=== PATIENT | female | born 1975 | race Caucasian/White ===

== ENCOUNTER 2018-05-14 19:55 | Emergency (ER) | payer SELFPAY ==
[2018-05-14] MEDS ORDERED: LIDOCAINE 1% MPF 5 ML VIAL ONE (20:56)
[2018-05-14] MEDS ORDERED: HYDROCODONE/APAP 10/325 TAB ONE (20:56)
--- NOTE | 2018-05-14 22:09 | ER ---
Nurse's Notes [facility] Name: Gabrielle Levine Age: 42 yrs Sex: Female : 1975 Arrival Date: 05/14/2018 Time: 19:57 Bed 16 Private MD: Blanka Hughes Diagnosis: Abscess of Bartholin's gland Presentation: 05/14 20:02 Presenting complaint: Patient states: Reports pain and swelling to vagina and perineum aj since when patient reports she felt something pop in her vagina. Transition of care: patient was not received from another setting of care. Onset of symptoms was May 10, 2018. Risk Assessment: Do you want to hurt yourself or someone else? Patient reports no desire to harm self or others. Initial Sepsis Screen: Does the patient meet any 2 criteria? No. Patient's initial sepsis screen is negative. Does the patient have a suspected source of infection? No. Patient's initial sepsis screen is negative. Care prior to arrival: None. 20:02 Method Of Arrival: Ambulatory aj 20:02 Acuity: PAZ 3 aj Triage Assessment: 20:04 General: Appears in no apparent distress. uncomfortable, Behavior is calm, cooperative, aj appropriate for age. Pain: Complains of pain in vaginal opening and perineum. Neuro: Level of Consciousness is awake, alert, obeys commands, Oriented to person, place, time, situation, Appropriate for age. Respiratory: Airway is patent Respiratory effort is even, unlabored, Respiratory pattern is regular, symmetrical. : Reports pain in vagina and perineum. Derm: Skin is intact, is healthy with good turgor, Skin is pink, warm \T\ dry. normal. 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 - Social history:: Smoking status: Patient/guardian denies using tobacco. - Ebola Screening: : Patient negative for fever greater than or equal to 101.5 degrees Fahrenheit, and additional compatible Ebola Virus Disease symptoms Patient denies exposure to infectious person Patient denies travel to an Ebola-affected area in the 21 days before illness onset No symptoms or risks identified at this time. Screenin:45 Abuse screen: Denies threats or abuse. Denies injuries from another. Nutritional cc3 screening: No deficits noted. Tuberculosis screening: No symptoms or risk factors identified. Fall Risk Ambulatory Aid- None/Bed Rest/Nurse Assist (0 pts). Gait- Normal/Bed Rest/Wheelchair (0 pts) Mental Status- Oriented to own ability (0 pts). Assessment: 20:45 General: see triage assessment. cc3 21:30 Reassessment: Patient appears in no apparent distress at this time. Patient and/or cc3 family updated on plan of care and expected duration. Pain level reassessed. Patient is alert, oriented x 3, equal unlabored respirations, skin warm/dry/pink. I\T\D of the bartholin's cyst done by SHAWN Beal. 22:30 Reassessment: Patient appears in no apparent distress at this time. Patient and/or cc3 family updated on plan of care and expected duration. Pain level reassessed. Patient is alert, oriented x 3, equal unlabored respirations, skin warm/dry/pink. SHAWN Beal discharged the patient home with prescription given. No IV cannula in situ. Patient left ER vitally stable and ambulatory with her niece. Vital Signs: 20:04 BP 130 / 72; Pulse 93; Resp 17; Temp 97.9; Pulse Ox 98% on R/A; Weight 104.33 kg; aj Height 5 ft. 6 in. (167.64 cm); 21:20 BP 135 / 75; Pulse 92; Resp 17 S; Pulse Ox 99% on R/A; cc3 22:10 BP 132 / 74; Pulse 91; Resp 19 S; Pulse Ox 98% on R/A; cc3 20:04 Body Mass Index 37.12 (104.33 kg, 167.64 cm) aj ED Course: 19:57 Patient arrived in ED. am2 19:58 Blanka Hughes is Private Physician. am2 20:03 Triage completed. aj 20:04 Arm band placed on left wrist. Patient placed in waiting room, Patient notified of wait aj time. 20:10 Emigdio Gonzalez NP is PHCP. pm1 20:10 Cruz Sigala MD is Attending Physician. pm1 20:44 Lilian Palomo is Primary Nurse. cc3 20:45 Patient has correct armband on for positive identification. Bed in low position. Call cc3 light in reach. Side rails up X 1. Pulse ox on. NIBP on. 21:30 Assist provider with I \T\ D: of an abscess on Bartholin's gland Set up I\T\D tray. cc 3 Performed by Emigdio Gonzalez ORACLE SPECIALIST Wound packed. 4X4s, Dressing with 4X4s, Patient tolerated. 22:07 Jackelyn Flowers MD is Referral Physician. pm1 22:30 Patient did not have IV access during this emergency room visit. cc3 Administered Medications: 20:55 Drug: [place] 10 mg-325 mg 1 tabs Route: PO; cc3 21:30 Follow up: Response: No adverse reaction; Pain is decreased cc3 21:30 Drug: Lidocaine (1 %) 5 ml {Note: given by SHAWN Beal.} Volume: 5 ml; Route: cc3 Infiltration; 22:00 Follow up: Response: No adverse reaction cc3 21:30 Drug: Marcaine (0.5 %) 10 ml {Note: given by SHAWN Beal.} Volume: 10 ml; Route: cc3 Infiltration; 22:00 Follow up: Response: No adverse reaction cc3 22:05 Drug: Clindamycin 600 mg Route: IM; Site: left gluteus; cc3 22:30 Follow up: Response: No adverse reaction cc3 Outcome: 22:08 Discharge ordered by . pm1 22:30 Discharged to home ambulatory, with family. cc3 22:30 Condition: stable 22:30 Discharge instructions given to patient, family, Instructed on discharge instructions, follow up and referral plans. medication usage, Demonstrated understanding of instructions, follow-up care, medications, Prescriptions given X 2. 22:34 Patient left the ED. cc3 Signatures: Zenia Shaikh RN RN Emigdio Lemon NP ORACLE SPECIALIST pm1 Zenia Brito am2 Lilian Palomo cc3 Corrections: (The following items were deleted from the chart) 05/15 00:58 05/14 21:30 Reassessment: Patient appears in no apparent distress at this time. Patient cc3 and/or family updated on plan of care and expected duration. Pain level reassessed. Patient is alert, oriented x 3, equal unlabored respirations, skin warm/dry/pink. cc3 05/15 01:08 05/14 22:30 No provider procedures requiring assistance completed. cc3 cc3
--- NOTE | 2018-05-14 22:09 | EDPHYS ---
Physician Documentation [facility] Name: Gabrielle Levine Age: 42 yrs Sex: Female : 1975 Arrival Date: 05/14/2018 Time: 19:57 Bed 16 Private MD: Blanka Hughes ED Physician Cruz Sigala HPI: 05/14 20:53 This 42 yrs old Female presents to ER via Ambulatory with complaints of pm1 Vaginal Pain - swelling. 20:53 The patient presents with Bump on right side of vagina. Onset: The symptoms/episode pm1 began/occurred 2 day(s) ago. Modifying factors: The symptoms are alleviated by nothing, the symptoms are aggravated by walking, sitting. Associated signs and symptoms: Pertinent negatives: dysuria, fever, vaginal bleeding, vaginal discharge. Severity of symptoms: in the emergency department the symptoms are actually worse. The patient has not experienced similar symptoms in the past. The patient has not recently seen a physician, and does not have an established primary care provider. 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 - Social history:: Smoking status: Patient/guardian denies using tobacco. - Ebola Screening: : Patient negative for fever greater than or equal to 101.5 degrees Fahrenheit, and additional compatible Ebola Virus Disease symptoms Patient denies exposure to infectious person Patient denies travel to an Ebola-affected area in the 21 days before illness onset No symptoms or risks identified at this time. ROS: 20:53 Positive for bump to right side of vagina, Negative for urinary symptoms, flank pm1 pain, burning with urination. 20:53 Constitutional: Negative for fever, chills, and weight loss, Eyes: Negative for injury, pain, redness, and discharge, ENT: Negative for injury, pain, and discharge, Neck: Negative for injury, pain, and swelling, Cardiovascular: Negative for chest pain, palpitations, and edema, Respiratory: Negative for shortness of breath, cough, wheezing, and pleuritic chest pain, Abdomen/GI: Negative for abdominal pain, nausea, vomiting, diarrhea, and constipation, Back: Negative for injury and pain, MS/Extremity: Negative for injury and deformity, Skin: Negative for injury, rash, and discoloration, Neuro: Negative for headache, weakness, numbness, tingling, and seizure. Exam: 20:53 Constitutional: This is a well developed, well nourished patient who is awake, alert, pm1 and in no acute distress. Head/Face: Normocephalic, atraumatic. Eyes: Pupils equal round and reactive to light, extra-ocular motions intact. Lids and lashes normal. Conjunctiva and sclera are non-icteric and not injected. Cornea within normal limits. Periorbital areas with no swelling, redness, or edema. ENT: Nares patent. No nasal discharge, no septal abnormalities noted. Tympanic membranes are normal and external auditory canals are clear. Oropharynx with no redness, swelling, or masses, exudates, or evidence of obstruction, uvula midline. Mucous membranes moist. Neck: Trachea midline, no thyromegaly or masses palpated, and no cervical lymphadenopathy. Supple, full range of motion without nuchal rigidity, or vertebral point tenderness. No Meningismus. Chest/axilla: Normal chest wall appearance and motion. Nontender with no deformity. No lesions are appreciated. Cardiovascular: Regular rate and rhythm with a normal S1 and S2. No gallops, murmurs, or rubs. Normal PMI, no JVD. No pulse deficits. Respiratory: Lungs have equal breath sounds bilaterally, clear to auscultation and percussion. No rales, rhonchi or wheezes noted. No increased work of breathing, no retractions or nasal flaring. Abdomen/GI: Soft, non-tender, with normal bowel sounds. No distension or tympany. No guarding or rebound. No evidence of tenderness throughout. Back: No spinal tenderness. No costovertebral tenderness. Full range of motion. 20:53 Skin: Warm, dry with normal turgor. Normal color with no rashes, no lesions, and no evidence of cellulitis. MS/ Extremity: Pulses equal, no cyanosis. Neurovascular intact. Full, normal range of motion. 20:53 : Pelvic Exam: External exam: Bartholin's cyst present, no evidence of foreign body, no lesions, no ulcerations, no warts seen, Eden ESCOBAR student. 20:53 Neuro: Orientation: is normal, Motor: is normal, moves all fours, strength is normal, strength is 5/5 in all extremities, Gait: is steady, at a normal pace, without difficulty. Vital Signs: 20:04 BP 130 / 72; Pulse 93; Resp 17; Temp 97.9; Pulse Ox 98% on R/A; Weight 104.33 kg; aj Height 5 ft. 6 in. (167.64 cm); 21:20 BP 135 / 75; Pulse 92; Resp 17 S; Pulse Ox 99% on R/A; cc3 22:10 BP 132 / 74; Pulse 91; Resp 19 S; Pulse Ox 98% on R/A; cc3 20:04 Body Mass Index 37.12 (104.33 kg, 167.64 cm) Procedures: 22:05 I \T\ D: Incision and drainage was performed for an abscess of the right Bartholin's pm1 gland. Prepped with Betadine, Anesthetized with Lidocaine 1% with Marcaine 0.5%. Incised with #11 blade. Drained moderate amount serosanguinous fluid. Packed with wurd's catheter - 3 cc balloon . the patient tolerated the procedure well. MDM: 20:11 Patient medically screened. pm1 22:07 Data reviewed: vital signs. Data interpreted: Pulse oximetry: on room air is 98 %. pm1 Interpretation: normal. Counseling: I had a detailed discussion with the patient and/or guardian regarding: the historical points, exam findings, and any diagnostic results supporting the discharge/admit diagnosis, the need for outpatient follow up, for definitive care, an OB/Gyne specialist, to return to the emergency department if symptoms worsen or persist or if there are any questions or concerns that arise at home. 05/14 20:33 Order name: Incision \T\ Drainage Setup; Complete Time: 21:58 pm1 Administered Medications: 20:55 Drug: [place] 10 mg-325 mg 1 tabs Route: PO; cc3 21:30 Follow up: Response: No adverse reaction; Pain is decreased cc3 21:30 Drug: Lidocaine (1 %) 5 ml {Note: given by SHAWN Beal.} Volume: 5 ml; Route: cc3 Infiltration; 22:00 Follow up: Response: No adverse reaction cc3 21:30 Drug: Marcaine (0.5 %) 10 ml {Note: given by SHAWN Beal.} Volume: 10 ml; Route: cc3 Infiltration; 22:00 Follow up: Response: No adverse reaction cc3 22:05 Drug: Clindamycin 600 mg Route: IM; Site: left gluteus; cc3 22:30 Follow up: Response: No adverse reaction cc3 Disposition: 05/15 00:59 Co-signature as Attending Physician, Cruz Sigala MD. rn Disposition: 05/14/18 22:08 Discharged to Home. Impression: Abscess of Bartholin's gland. - Condition is Stable. - Discharge Instructions: Bartholin Cyst or Abscess, Incision and Drainage. - Prescriptions for Clindamycin HCl 300 mg Oral Capsule - take 1 capsule by ORAL route every 6 hours for 10 days; 40 capsule. Tylenol- Codeine #3 300-30 mg Oral Tablet - take 2 tablets by ORAL route every 6 hours As needed; 20 tablet. - Work release form, Medication Reconciliation Form, Thank You Letter, Antibiotic Education, Prescription Opioid Use form. - Follow up: Emergency Department; When: As needed; Reason: Worsening of condition. Follow up: Jackelyn Flowers MD; When: 2 - 3 days; Reason: Recheck today's complaints, Continuance of care, Re-evaluation by your physician. - Problem is new. - Symptoms have improved. Signatures: Zenia Shaikh RN RN aj Nieto, Roman, MD MD rn Marinas, Patrick, SHAWN SKIP OPERATOR pm1 Lilian Palomo cc3 Corrections: (The following items were deleted from the chart) 05/14 22:34 22:08 05/14/2018 22:08 Discharged to Home. Impression: Abscess of Bartholin's gland. cc3 Condition is Stable. Forms are Medication Reconciliation Form, Thank You Letter, Antibiotic Education, Prescription Opioid Use. Follow up: Emergency Department; When: As needed; Reason: Worsening of condition. Follow up: Jackelyn Flowers; When: 2 - 3 days; Reason: Recheck today's complaints, Continuance of care, Re-evaluation by your physician. Problem is new. Symptoms have improved. pm1
[2018-05-14] MEDS ORDERED: CLINDAMYCIN IV 150 MG/ML (4 mL) VIAL ONE (22:14)
== END 2018-05-14 22:34 | disposition home or self-care (01) ==
LOC: ER 19:55
PROC: 0U9L0ZZ Drainage of Vestibular Gland, Open Approach (ICD-10-PCS; principal; 2018-05-14)
DX: N75.1 Abscess of Bartholin's gland (principal); F41.9 Anxiety disorder, unspecified; F43.10 Post-traumatic stress disorder, unspecified; Z79.899 Other long term (current) drug therapy
CPT/HCPCS: 96372; 99284; S0077

== ENCOUNTER 2019-06-21 00:53 | Emergency (ER) | payer BC ==
[2019-06-21] MEDS ORDERED: KETOROLAC 30 MG/ML INJ ONE (01:39)
[2019-06-21] MEDS ORDERED: ACETAMINOPHEN 500 MG TAB ONE (01:39)
[2019-06-21] MEDS ORDERED: NA CHLORIDE 0.9% 3,000 ML ONE (01:39)
[2019-06-21 02:59] LABS: Absolute Lymphocytes (CBC) 0.6 K/uL (0.7-4.9); Basophils % 0.4 % (0-1.3); Hematocrit 37.2 % (36.0-45.0); Lymphocytes % 13.2 % (15.3-44.8); MPV 7.8 fL (7.6-11.3); RBC Red Blood Cell Count 4.19 M/uL (3.86-4.86)
[2019-06-21 03:00] LABS: Protime INR 1.27
[2019-06-21] MEDS ORDERED: PIPER/TAZO/NS 3.375gm 3.375 GM/100 ML BAG ONE (03:04)
[2019-06-21 03:18] LABS: ALT/SGPT 39 U/L (12-78); AST/SGOT 33 U/L (15-37); Albumin 3.2 g/dL (3.4-5.0); Alkaline Phosphatase 44 U/L (45-117); BUN Blood Urea Nitrogen 8 mg/dL (7-18); Bicarbonate 21 mmol/L (21-32); Bilirubin Direct < 0.1 mg/dL (0-0.2); Bilirubin Total 0.3 mg/dL (0.2-1.0); CKMB Creatine Kinase MB < 1.0 ng/mL (0.3-3.6); Creatine Phosphokinase 64 U/L (26-192); Glucose Level 105 mg/dL (74-106); Lipase 154 U/L (73-393); Potassium 3.9 mmol/L (3.5-5.1); Protein, Total 7.3 g/dL (6.4-8.2); Sodium Level 133 mmol/L (136-145); Troponin (Emerg Dept Use Only) < 0.02 ng/mL (0.0-0.045)
--- NOTE | 2019-06-21 04:35 | ER ---
Nurse's Notes [facility] Name: Gabrielle Levine Age: 44 yrs Sex: Female : 1975 Arrival Date: 06/21/2019 Time: 00:55 Bed 2 Private MD: Diagnosis: Chest pain, unspecified Presentation: 06/21 01:07 Presenting complaint: Patient states: Tuesday afternoon started Duexis c/o central ak1 chest pain and middle upper back pain. Transition of care: patient was not received from another setting of care. Onset of symptoms is unknown. Risk Assessment: Do you want to hurt yourself or someone else? Patient reports no desire to harm self or others. Initial Sepsis Screen: Does the patient meet any 2 criteria? No. Patient's initial sepsis screen is negative. Does the patient have a suspected source of infection? No. Patient's initial sepsis screen is negative. Care prior to arrival: None. 01:07 Method Of Arrival: Ambulatory ak1 01:07 Acuity: PAZ 3 ak1 Triage Assessment: 01:11 General: Appears in no apparent distress. Behavior is anxious. 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 - Social history:: Smoking status: Patient/guardian denies using tobacco. - Ebola Screening: : No symptoms or risks identified at this time. Screenin:20 Abuse screen: Denies threats or abuse. Denies injuries from another. Nutritional ao screening: No deficits noted. Tuberculosis screening: No symptoms or risk factors identified. Fall Risk None identified. Assessment: 01:13 Pain: Pain began. ak1 01:17 General: Appears in no apparent distress. comfortable, obese, well groomed, well ao developed, well nourished, Behavior is calm, cooperative, appropriate for age. Pain: Complains of pain in chest Pain radiates to back. Neuro: Level of Consciousness is awake, alert, obeys commands, Oriented to person, place, time, situation, Appropriate for age Moves all extremities. Full function Speech is normal, Facial symmetry appears normal. Cardiovascular: Reports chest pain, Capillary refill < 3 seconds Patient's skin is warm and dry. Respiratory: Airway is patent Respiratory effort is even, unlabored, Respiratory pattern is regular, symmetrical. GI: Abdomen is round obese. : No signs and/or symptoms were reported regarding the genitourinary system. EENT: No signs and/or symptoms were reported regarding the EENT system. Derm: Skin is intact, Skin is pink, warm \T\ dry. normal, Skin temperature is warm. Musculoskeletal: Capillary refill Range of motion: intact in all extremities. 02:30 Reassessment: Lab at bedside, unable to collect blood. lp1 04:30 Reassessment: Patient appears in no apparent distress at this time. Patient and/or ao family updated on plan of care and expected duration. Pain level reassessed. Waiting on Dispos orders. 05:15 Reassessment: Patient ambulated to bathroom at this time. lp1 05:43 Reassessment: DC instructions given to patient. Patient agree with POC and to follow up ao with PCP. No questions at this time. Vital Signs: 01:11 BP 123 / 73; Pulse 111; Resp 18; Temp 101.0(O); Pulse Ox 97% on R/A; Weight 113.4 kg ak1 (R); Height 5 ft. 6 in. (167.64 cm) (R); Pain 4/10; 02:45 BP 110 / 71; Pulse 104; Resp 18; Pulse Ox 98% on R/A; lp1 03:39 BP 129 / 74; Pulse 95; Resp 22; Temp 99.2(O); Pulse Ox 97% on R/A; lp1 04:30 BP 107 / 64; Pulse 91; Resp 16; Pulse Ox 100% ; ao 01:11 Body Mass Index 40.35 (113.40 kg, 167.64 cm) ak1 ED Course: 00:55 Patient arrived in ED. ag3 01:10 Triage completed. ak1 01:11 Arm band placed on Patient placed in an exam room, on a stretcher, on pulse oximetry, ak1 Patient notified of wait time. EKG completed in triage. Results shown to MD. 01:17 Benny Davis, RN is Primary Nurse. ao 01:20 Patient has correct armband on for positive identification. Pulse ox on. NIBP on. ao 01:20 Inserted saline lock: 20 gauge in left forearm, using aseptic technique. Blood ao collected. Patient maintains SpO2 saturation greater than 95% on room air. 01:33 Eber Mariee PA is PHCP. jr8 01:33 Tim Wylie MD is Attending Physician. jr8 01:46 Chest Single View XRAY In Process Unspecified. EDMS 02:15 Missed attempt(s): 22 gauge in left antecubital area. lp1 02:40 Inserted saline lock: 18 gauge in left EJ, using aseptic technique. Blood collected. By lp1 YUE Aguirre. 02:40 Initial lab(s) drawn, by ED staff, sent to lab. First set of blood cultures drawn by ED lp1 staff. 02:40 Flu and/or RSV swab sent to lab. lp1 05:44 No provider procedures requiring assistance completed. IV discontinued, intact, ao bleeding controlled, No redness/swelling at site. Pressure dressing applied. Administered Medications: 02:30 Drug: Acetaminophen 1000 mg Route: PO; ao 05:45 Follow up: Response: No adverse reaction; Temperature is decreased ao 02:52 Drug: TORadol 30 mg Route: IVP; Site: left jugular; ao 03:47 Follow up: Response: No adverse reaction ao 02:54 Drug: NS 0.9% (30 ml/kg) 30 ml/kg Route: IV; Rate: bolus; Site: left jugular; ao 05:46 Follow up: IV Status: Completed infusion; IV Intake: 3000ml ao 03:19 Drug: Zosyn 3.375 grams Route: IVPB; Infused Over: 60 mins; Site: left jugular; ao 05:45 Follow up: IV Status: Completed infusion; IV Intake: 100ml ao Intake: 05:45 IV: 100ml; Total: 100ml. ao 05:46 IV: 3000ml; Total: 3100ml. ao Outcome: 04:35 Discharge ordered by . tw4 05:44 Discharged to home ambulatory. ao 05:44 Condition: stable 05:44 Discharge instructions given to patient, Instructed on discharge instructions, follow up and referral plans. Demonstrated understanding of instructions, follow-up care, medications. 05:46 Patient left the ED. ao Signatures: Dispatcher [employer] EDMS Martina Dumas RN RN lp1 Eber Mariee PA PA jr8 Mirna Hood RN RN ak1 Benny Davis RN RN Tim Stovall MD MD tw4 Britney Benites ag3
--- NOTE | 2019-06-21 04:36 | EDPHYS ---
Physician Documentation [facility] Name: Gabrielle Levine Age: 44 yrs Sex: Female : 1975 Arrival Date: 06/21/2019 Time: 00:55 Bed 2 Private MD: ED Physician Tim Wylie HPI: 06/21 02:11 This 44 yrs old Female presents to ER via Ambulatory with complaints of Chest jr8 Pain. 02:11 The patient or guardian reports chest pain that is located primarily in the substernal jr8 area. Onset: acutely, today. The pain radiates to back. Associated signs and symptoms: Pertinent positives: fever. The chest pain is described as sharp. Duration: The patient or guardian reports a single episode, that is still ongoing. Modifying factors: The symptoms are alleviated by nothing. the symptoms are aggravated by nothing. Severity of pain: At its worst the pain was moderate in the emergency department the pain is unchanged. The patient has not experienced similar symptoms in the past. The patient has not recently seen a physician. ATTORNEY: 01:11 LMP N/A - Hysterectomy ak1 Historical: - Allergies: 01:11 Azithromycin; ak1 01:11 Cephalexin Monohydrate; ak1 01:11 Methocarbamol; ak1 01:11 phenytoin sodium; ak1 01:11 phenytoin sodium extended; ak1 01:11 Erythromycin; ak1 - Home Meds: 01:11 Lexapro 15mg Oral once daily for Anxiety with Depression [Active]; ak1 - PMHx: 01:11 Anxiety; Irritable bowel syndrome; PTSD; Migraines; ak1 - PSHx: 01:11 Hysterectomy; Cholecystectomy; Tubal ligation; ak1 - Immunization history:: Adult Immunizations unknown, Flu vaccine is not up to date. - Social history:: Smoking status: Patient/guardian denies using tobacco. - Ebola Screening: : No symptoms or risks identified at this time. ROS: 02:11 Eyes: Negative for injury, pain, redness, and discharge, ENT: Negative for injury, jr8 pain, and discharge, Neck: Negative for injury, pain, and swelling, Respiratory: Negative for shortness of breath, cough, wheezing, and pleuritic chest pain, Abdomen/GI: Negative for abdominal pain, nausea, vomiting, diarrhea, and constipation, Back: Negative for injury and pain, MS/Extremity: Negative for injury and deformity, Skin: Negative for injury, rash, and discoloration, Neuro: Negative for headache, weakness, numbness, tingling, and seizure. 02:11 Constitutional: Positive for fever. 02:11 Cardiovascular: Positive for chest pain, Negative for edema, orthopnea, palpitations, paroxysmal nocturnal dyspnea. Exam: 02:11 Eyes: Pupils equal round and reactive to light, extra-ocular motions intact. Lids and jr8 lashes normal. Conjunctiva and sclera are non-icteric and not injected. Cornea within normal limits. Periorbital areas with no swelling, redness, or edema. ENT: Nares patent. No nasal discharge, no septal abnormalities noted. Tympanic membranes are normal and external auditory canals are clear. Oropharynx with no redness, swelling, or masses, exudates, or evidence of obstruction, uvula midline. Mucous membranes moist. Neck: Trachea midline, no thyromegaly or masses palpated, and no cervical lymphadenopathy. Supple, full range of motion without nuchal rigidity, or vertebral point tenderness. No Meningismus. Respiratory: Lungs have equal breath sounds bilaterally, clear to auscultation and percussion. No rales, rhonchi or wheezes noted. No increased work of breathing, no retractions or nasal flaring. Abdomen/GI: Soft, non-tender, with normal bowel sounds. No distension or tympany. No guarding or rebound. No evidence of tenderness throughout. Back: No spinal tenderness. No costovertebral tenderness. Full range of motion. Skin: Warm, dry with normal turgor. Normal color with no rashes, no lesions, and no evidence of cellulitis. MS/ Extremity: Pulses equal, no cyanosis. Neurovascular intact. Full, normal range of motion. Neuro: Awake and alert, GCS 15, oriented to person, place, time, and situation. Cranial nerves II-XII grossly intact. Motor strength 5/5 in all extremities. Sensory grossly intact. Cerebellar exam normal. Normal gait. 02:11 Cardiovascular: Rate: tachycardic, Rhythm: regular, Pulses: Pulses are 2+ in right radial artery and left radial artery. Heart sounds: normal, normal S1and S2, no S3 or S4, no murmur, no rub, no gallop, Edema: is not appreciated, JVD: is not appreciated. Vital Signs: :11 BP 123 / 73; Pulse 111; Resp 18; Temp 101.0(O); Pulse Ox 97% on R/A; Weight 113.4 kg ak1 (R); Height 5 ft. 6 in. (167.64 cm) (R); Pain 4/10; 02:45 BP 110 / 71; Pulse 104; Resp 18; Pulse Ox 98% on R/A; lp1 03:39 BP 129 / 74; Pulse 95; Resp 22; Temp 99.2(O); Pulse Ox 97% on R/A; lp1 04:30 BP 107 / 64; Pulse 91; Resp 16; Pulse Ox 100% ; ao 01:11 Body Mass Index 40.35 (113.40 kg, 167.64 cm) ak1 MDM: 01:33 Patient medically screened. 06/21 01:32 Order name: Basic Metabolic Panel [facility] 06/21 01:32 Order name: Blood Culture Adult (2) [facility] 06/21 01:32 Order name: CBC with Diff; Complete Time: 04:02 [facility] 06/21 04:02 Interpretation: Normal except: MAGDA% 75.7; LYM% 13.2; LYMA 0.6. [facility] 06/21 01:32 Order name: Ckmb; Complete Time: 04:02 [facility] 06/21 04:05 Interpretation: Within normal limits: CKMB < 1.0. [facility] 06/21 01:32 Order name: CPK; Complete Time: 04:02 [facility] 06/21 04:05 Interpretation: CPK 64. [facility] 06/21 01:32 Order name: Lactate; Complete Time: 04:02 [facility] 06/21 04:05 Interpretation: Within normal limits: LAC 0.9. 06/21 01:32 Order name: LFT's; Complete Time: 04:02 [facility] 06/21 04:02 Interpretation: Normal except: ALK 44; GLOB 4.1; A/G 0.8; ALB 3.2. [facility] 06/21 01:32 Order name: Lipase; Complete Time: 04:02 [facility] 06/21 04:05 Interpretation: Within normal limits: LIP 154. [facility] 06/21 01:32 Order name: Procalcitonin; Complete Time: 04:02 [facility] 06/21 04:06 Interpretation: Within normal limits: Procalcitonin < 0.05. 06/21 01:32 Order name: Protime (+inr); Complete Time: 04:02 [facility] 06/21 04:04 Interpretation: Normal except: PT 14.8. 06/21 01:32 Order name: Ptt, Activated; Complete Time: 04:02 06/21 04:06 Interpretation: Within normal limits: PTT 29.3. [facility] 06/21 01:32 Order name: Troponin (emerg Dept Use Only); Complete Time: 04:02 06/21 04:06 Interpretation: Within normal limits: TROPED < 0.02. 06/21 01:32 Order name: ESR; Complete Time: 04:02 06/21 04:04 Interpretation: Normal except: SED 24. 06/21 01:32 Order name: Chest Single View XRAY 06/21 01:32 Order name: Cardiac monitoring; Complete Time: 01:34 [facility] 06/21 01:32 Order name: EKG - Nurse/Tech; Complete Time: 01:33 06/21 01:32 Order name: IV Saline Lock - Large Bore; Complete Time: 01:33 06/21 01:32 Order name: Labs collected and sent; Complete Time: 02:57 06/21 01:32 Order name: O2 Per Protocol; Complete Time: 01:34 06/21 01:32 Order name: O2 Sat Monitoring; Complete Time: 02:54 06/21 01:32 Order name: Urine Dipstick-Ancillary (obtain specimen); Complete Time: 02:54 06/21 01:34 Order name: Basic Metabolic Panel; Complete Time: 04:02 [facility] 06/21 04:04 Interpretation: Normal except: NA 133; GFR 82. 06/21 02:10 Order name: Flu; Complete Time: 04:02 Administered Medications: 02:30 Drug: Acetaminophen 1000 mg Route: PO; ao 05:45 Follow up: Response: No adverse reaction; Temperature is decreased ao 02:52 Drug: TORadol 30 mg Route: IVP; Site: left jugular; ao 03:47 Follow up: Response: No adverse reaction ao 02:54 Drug: NS 0.9% (30 ml/kg) 30 ml/kg Route: IV; Rate: bolus; Site: left jugular; ao 05:46 Follow up: IV Status: Completed infusion; IV Intake: 3000ml ao 03:19 Drug: Zosyn 3.375 grams Route: IVPB; Infused Over: 60 mins; Site: left jugular; ao 05:45 Follow up: IV Status: Completed infusion; IV Intake: 100ml ao Disposition: 06:16 Co-signature as Attending Physician, Tim Wylie MD I agree with the assessment and tw4 plan of care. Disposition: 06/21/19 04:35 Discharged to Home. Impression: Chest pain, unspecified. - Condition is Stable. - Discharge Instructions: Nonspecific Chest Pain, Pain Without a Known Cause, Nonspecific Chest Pain, [id number]. - Work release form, Medication Reconciliation Form, Thank You Letter, Antibiotic Education, Prescription Opioid Use form. - Follow up: Private Physician; When: Upon discharge from the Emergency Department; Reason: Recheck today's complaints, Continuance of care. - Problem is new. - Symptoms have improved. Signatures: Dispatcher [employer] EDMS Eber Mariee PA PA 8 Mirna Hood RN RN ak1 Benny Davis RN Tim Adorno MD MD tw4 Corrections: (The following items were deleted from the chart) 03:20 01:32 Accucheck ordered. 8 04:08 04:06 TROPED < 0.02. tw4 tw4 05:46 01:32 Urine Test ordered. [facility] ao 05:46 04:35 06/21/2019 04:35 Discharged to Home. Impression: Chest pain, unspecified. ao Condition is Stable. Forms are Medication Reconciliation Form, Thank You Letter, Antibiotic Education, Prescription Opioid Use. Follow up: Private Physician; When: Upon discharge from the Emergency Department; Reason: Recheck today's complaints, Continuance of care. Problem is new. Symptoms have improved. tw4
[2019-06-21 06:38] VITALS: TEMP 99.2
[2019-06-21 06:39] VITALS: BP 107/64; O2SAT 100
--- NOTE | 2019-06-21 08:17 | RAD REPORT ---
EXAM DESCRIPTION: [place] Single View06/21/2019 1:47 am CLINICAL HISTORY: Chest pain COMPARISON: none FINDINGS: The lungs appear clear of acute infiltrate. The heart is normal size IMPRESSION: No acute abnormalities displayed
--- NOTE | 2019-06-21 12:43 | EKG ---
Test Date: 2019-06-21 Test Time: 01:05:17 Instructional Technologist: DEEJAY MEASUREMENT RESULTS: Intervals: Rate: 108 SC: 172 QRSD: 86 QT: 320 QTc: 428 [place]: P: 52 SC: 172 QRS: 74 T: 41 INTERPRETIVE STATEMENTS: Sinus tachycardia Otherwise normal ECG No previous ECG available for comparison Electronically Signed On 06-21-19 12:41:31 [place] by Fareed Sanchez
== END 2019-06-21 05:46 | disposition home or self-care (01) ==
LOC: ER 00:53
DX: R07.9 Chest pain, unspecified (principal); R50.9 Fever, unspecified; F34.1 Dysthymic disorder; Z88.3 Allergy status to other anti-infective agents; Z88.8 Allergy status to other drugs, medicaments and biological substances
CPT/HCPCS: 96365; 93005; 87040; 85025; 80048; 36415; 82550; 85610; 80076; 83605; 85730; 85652; 84484; 82553; 83690; 84145; 87804 ×2; 71045; 96375; 99284; 96366; J2543; J7030

== ENCOUNTER 2021-06-17 17:49 | Emergency (ER) | payer BC ==
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
[2021-06-17 20:13] LABS: ALT/SGPT 24 U/L (12-78); Albumin 3.4 g/dL (3.4-5.0); Alkaline Phosphatase 67 U/L (45-117); BUN Blood Urea Nitrogen 11 mg/dL (7-18); Bicarbonate 18 mmol/L (21-32); Bilirubin Direct < 0.1 mg/dL (0-0.2); Bilirubin Total 0.3 mg/dL (0.2-1.0); Glucose Level 124 mg/dL (74-106); Protein, Total 8.2 g/dL (6.4-8.2); Sodium Level 138 mmol/L (136-145)
[2021-06-17 20:14] LABS: AST/SGOT 14 U/L (15-37); Potassium 3.9 mmol/L (3.5-5.1)
[2021-06-17 20:46] LABS: Absolute Lymphocytes (CBC) 2.2 K/uL (0.7-4.9); Basophils % 0.3 % (0-1.3); Hematocrit 40.4 % (36.0-45.0); Lymphocytes % 9.4 % (15.3-44.8); MPV 6.8 fL (7.6-11.3); RBC Red Blood Cell Count 4.44 M/uL (3.86-4.86)
--- NOTE | 2021-06-17 21:23 | ER ---
Nurse's Notes [facility] Name: Gabrielle Levine Age: 46 yrs Sex: Female : 1975 Arrival Date: 06/17/2021 Time: 17:50 Bed 4 Private MD: Diagnosis: Generalized pustular psoriasis Presentation: 06/17 18:05 Chief complaint: Patient states: Rash with itching to body for 3 days. Saw her doctor ll1 yesterday, got shot and started steroids today. Still getting worse. Coronavirus screen: Vaccine status: Patient reports receiving the 2nd dose of the covid vaccine. Client denies travel out of the [place] in the last 14 days. At this time, the client does not indicate any symptoms associated with coronavirus-19. Ebola Screen: Patient denies travel to an Ebola-affected area in the 21 days before illness onset. Initial Sepsis Screen: Does the patient meet any 2 criteria? HR > 90 bpm. No. Patient's initial sepsis screen is negative. Does the patient have a suspected source of infection? Yes: Skin breakdown/wound. Risk Assessment: Do you want to hurt yourself or someone else? Patient reports no desire to harm self or others. Onset of symptoms was June 15, 2021. 18:05 Method Of Arrival: Ambulatory ll1 18:05 Acuity: PAZ 3 ll1 Triage Assessment: 19:07 General: Appears uncomfortable. corey 19:08 General: Behavior is cooperative. corey M48 M60 [employer]: 21:59 LMP 2020 5 Historical: - Allergies: 18:03 Azithromycin; ll1 18:03 Cephalexin Monohydrate; ll1 18:03 Erythromycin; ll1 18:03 Methocarbamol; ll1 18:03 phenytoin sodium; ll1 18:03 phenytoin sodium extended; ll1 18:03 metformin; ll1 - PMHx: 18:03 Anxiety; Irritable bowel syndrome; Migraines; PTSD; HIV positive; ll1 - PSHx: 18:03 hysterectomy; ll1 - Immunization history:: Client reports receiving the 2nd dose of the Covid vaccine. - Social history:: Smoking status: Patient denies any tobacco usage or history of. Screenin:06 Abuse screen:. Nutritional screening: No deficits noted. Tuberculosis screening: No corey symptoms or risk factors identified. Fall Risk None identified. Assessment: 19:01 Pain: Complains of pain in scalp, back, buttocks, chest, abdomen, pelvis, right arm, corey left arm and neck. Derm: Reports burning, pain that is 10 out of 10 on a pain scale. generalized rash. Vital Signs: 18:05 BP 142 / 89; Pulse 104; Resp 18; Temp 98.3; Pulse Ox 99% on R/A; Weight 117.93 kg; ll1 Height 5 ft. 6 in. (167.64 cm); Pain 10/10; 20:41 BP 138 / 97; Pulse 93; Resp 18 S; Pulse Ox 97% on R/A; as6 22:00 BP 128 / 86; Pulse 95; Resp 18; Pulse Ox 100% ; sm5 18:05 Body Mass Index 41.96 (117.93 kg, 167.64 cm) ll1 ED Course: 17:50 Patient arrived in ED. am2 18:03 Arm band placed on. 1 18:08 Triage completed. [facility] 18:28 Annabelle Casanova is Primary Nurse. 18:30 Eber Mariee PA is PHCP. 8 18:30 Cruz Sigala MD is Attending Physician. 8 19:06 Patient has correct armband on for positive identification. Bed in low position. corey 19:06 No provider procedures requiring assistance completed. 19:49 Basic Metabolic Panel Sent. 19:49 LFT's Sent. 19:49 CBC with Diff Sent. 19:51 Inserted saline lock: 22 gauge in right antecubital area, using aseptic technique. Blood collected. 22:00 IV discontinued, intact, bleeding controlled, No redness/swelling at site. Pressure sm5 dressing applied. Administered Medications: No medications were administered Outcome: 21:22 Discharge ordered by . Jeffrey 21:59 Discharged to home ambulatory. 5 21:59 Condition: good 21:59 Discharge instructions given to patient, Instructed on discharge instructions, follow up and referral plans. medication usage, Demonstrated understanding of instructions, follow-up care, medications, Prescriptions given X 1. 22:04 Patient left the ED. 5 Signatures: Eber Mariee PA PA 8 Zenia Brito am2 Lorena Ortiz RN RN 1 Fabian Coats RN RN as6 Catherine Gilbert RN RN 5 Au-StagerAnnabelle Madeline, RN RN mk Corrections: (The following items were deleted from the chart) 20:01 19:08 Verified leora levine
--- NOTE | 2021-06-17 21:23 | EDPHYS ---
Physician Documentation [facility] Name: Gabrielle Levine Age: 46 yrs Sex: Female : 1975 Arrival Date: 06/17/2021 Time: 17:50 Bed 4 Private MD: ED Physician Cruz Sigala HPI: 06/17 19:19 This 46 yrs old Female presents to ER via Ambulatory with complaints of Rash, Pain All jr8 Over. 19:19 This is a 46-year-old female patient that presented to the emergency room with jr8 continued complaints of rash that is burning in nature. Patient stated that she has been seen by 2 other physicians, one being a charger operator helper and has been put on steroids but is still not getting better. Still unsure of exact diagnosis after seeing both of the physicians. Patient stated that she had had a migraine about 5 days prior to that. Has a history of migraines and was recently started on Imitrex and Topamax about 2 weeks ago. Denies any other symptoms at this time.. 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 - Social history:: Smoking status: Patient denies any tobacco usage or history of. ROS: 19:19 Eyes: Negative for injury, pain, redness, and discharge, ENT: Negative for injury, jr8 pain, and discharge, Neck: Negative for injury, pain, and swelling, Cardiovascular: Negative for chest pain, palpitations, and edema, Respiratory: Negative for shortness of breath, cough, wheezing, and pleuritic chest pain, Abdomen/GI: Negative for abdominal pain, nausea, vomiting, diarrhea, and constipation, Back: Negative for injury and pain, MS/Extremity: Negative for injury and deformity, Neuro: Negative for headache, weakness, numbness, tingling, and seizure. 19:19 Skin: Positive for pustules, rash. Exam: 19:19 Constitutional: This is a well developed, well nourished patient who is awake, alert, jr8 and in no acute distress. ENT: Nares patent. No nasal discharge, no septal abnormalities noted. Tympanic membranes are normal and external auditory canals are clear. Oropharynx with no redness, swelling, or masses, exudates, or evidence of obstruction, uvula midline. Mucous membranes moist. Cardiovascular: Regular rate and rhythm with a normal S1 and S2. No gallops, murmurs, or rubs. Normal PMI, no JVD. No pulse deficits. Respiratory: Lungs have equal breath sounds bilaterally, clear to auscultation and percussion. No rales, rhonchi or wheezes noted. No increased work of breathing, no retractions or nasal flaring. Abdomen/GI: Soft, non-tender, with normal bowel sounds. No distension or tympany. No guarding or rebound. No evidence of tenderness throughout. MS/ Extremity: Pulses equal, no cyanosis. Neurovascular intact. Full, normal range of motion. Neuro: Awake and alert, GCS 15, oriented to person, place, time, and situation. Cranial nerves II-XII grossly intact. Motor strength 5/5 in all extremities. Sensory grossly intact. 19:19 Skin: Patient has diffuse pustulous and erythematous rash that extends from the neck down through the chest, back, breast region, abdomen region, inguinal region. No bullae noted. Rash is blanchable. Mild tenderness to palpation.. Vital Signs: 18:05 BP 142 / 89; Pulse 104; Resp 18; Temp 98.3; Pulse Ox 99% on R/A; Weight 117.93 kg; ll1 Height 5 ft. 6 in. (167.64 cm); Pain 10/10; 20:41 BP 138 / 97; Pulse 93; Resp 18 S; Pulse Ox 97% on R/A; as6 22:00 BP 128 / 86; Pulse 95; Resp 18; Pulse Ox 100% ; sm5 18:05 Body Mass Index 41.96 (117.93 kg, 167.64 cm) ll1 MDM: 18:30 Patient medically screened. jr8 21:21 Data reviewed: vital signs, nurses notes, lab test result(s). Data interpreted: Pulse jr8 oximetry: on room air is 97 %. Interpretation: normal. Counseling: I had a detailed discussion with the patient and/or guardian regarding: the historical points, exam findings, and any diagnostic results supporting the discharge/admit diagnosis, lab results, the need for outpatient follow up, a charger operator helper, a family practitioner, to return to the emergency department if symptoms worsen or persist or if there are any questions or concerns that arise at home. ED course: With patient that the most likely causative reason for her rash is pustulous psoriasis based on her presentation. We checked her hepatic and renal function to ensure that we could treat her properly for this condition. If she were to get worse or have side effects based on the medication this can to be administered or her other medications that she take at this time she needs to come back for further evaluation. Patient good with this and will follow up and/or come back.. 06/17 18:58 Order name: CBC with Diff jr8 06/17 18:58 Order name: Basic Metabolic Panel; Complete Time: 20:22 jr8 06/17 18:58 Order name: LFT's; Complete Time: 20:22 jr8 06/17 20:56 Order name: Manual Differential EDMS Administered Medications: No medications were administered Disposition Summary: 06/17/21 21:22 Discharge Ordered Location: Home jr Problem: new jr8 Symptoms: have improved jr8 Condition: Stable jr8 Diagnosis - Generalized pustular psoriasis jr8 Followup: jr8 - With: Private Physician - When: 5 - 6 days - Reason: Recheck today's complaints, Continuance of care, Re-evaluation by your physician Discharge Instructions: - Discharge Summary Sheet jr8 - Psoriasis jr8 Forms: - Medication Reconciliation Form jr8 - Thank You Letter jr8 - Antibiotic Education jr8 - Prescription Opioid Use jr8 Prescriptions: - cyclosporine modified 50 mg Oral capsule - take 2.5 milligram per kilogram by ORAL route 2 times per day for 2 weeks; 84 jr8 tablet; Refills: 0, Product Selection Permitted Addendum: 06/20/2021 07:20 Co-signature as Attending Physician, Cruz Sigala MD I agree with the assessment and r n plan of care. Attestation: The patient's history, exam findings, diagnostics, and a summary of any interventions or procedures was reviewed in detail with Eber TURNER. Signatures: Dispatcher [facility] Cruz Lanza MD MD rn Roszak, Josh, PA PA jr8 Lorena Ortiz RN RN ll1 Annabelle Casanova
[2021-06-17 22:22] VITALS: TEMP 98.3
[2021-06-17 22:25] LABS: Blood Morphology Comment NOT SEEN (NOT SEEN); Platelet Estimate INCR
[2021-06-17 22:32] VITALS: BP 128/86; O2SAT 100
== END 2021-06-17 22:04 | disposition home or self-care (01) ==
LOC: ER 17:49
DX: L40.1 Generalized pustular psoriasis (principal); F41.9 Anxiety disorder, unspecified; K58.9 Irritable bowel syndrome, unspecified; G43.909 Migraine, unspecified, not intractable, without status migrainosus; F43.10 Post-traumatic stress disorder, unspecified; Z21 Asymptomatic human immunodeficiency virus [HIV] infection status
CPT/HCPCS: 36415; 80048; 80076; 85025; 99283

== ENCOUNTER 2021-07-09 17:13 | Observation (INO) | payer BC ==
--- OUTSIDE RECORDS SUMMARY | 2021-07-09 17:19 | XMS REPORT | Continuity of Care Document ---
:[address] [facility] t Address [address] [place] [address] Dr. Sabillon. [address] [place] [address] Care Team Providers Name Role Phone Pcp, Does Not Have A Primary Care Physician Roni GARÍCA L Attending Clinician Unavailable GILBERTO Attending Clinician Unavailable Gilberto MANRIQUE Attending Clinician Abdias Franklin MD Attending Clinician Singer TOLENTINO Attending Clinician Attending Clinician Unavailable GILBERTO Admitting Clinician Unavailable Gilberto MANRIQUE Admitting Clinician Payers Payer Name Policy Type Policy Number Effective Date Expiration Date S ource Problems Condition Condition Condition Status Onset Resolution Last Treating Co mments Source Name Details Category Date Date Treatment Clinician Date Rash Rash Disease Active 2020-07 Univers 2-17 ity of 00:00: [address] Branch IBS IBS Disease Active 2020-07 Univers (irritable (irritable 2-17 it y of bowel bowel 00:00: [place] syndrome) syndrome) 00 [facility] Lactic Lactic Disease Active 2020-07 Univers acidemia acidemia 2-17 ity of 00:00: [address] Branch Urinary Urinary Disease Active 2020-07 Univers tract tract 2-17 ity of infection [facility] [address] [place] [address] Sepsis Sepsis Disease Active 2020-07 Univers 2-17 ity of 00:00: [address] Branch 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-17 it y of ciency ciency 00:00: [place] virus virus 00 Medical infection) infection) Br anch Diabetes Diabetes Disease Active 2020-07 Unive rs mellitus mellitus 2-17 ity of 00:00: [place] 00 Medical Branch Urinary Urinary Disease Active 2020-07 Univers retention retention 2-17 ity of 00:00: [place] 00 Medical Branch Morbid Morbid Disease Active Univers obesity obesity 2-27 ity of with body with body 00:[place] mass index mass index 00 Me dical of 50 or of 50 or Branch higher higher Morbid Morbid Disease Active Univers obesity obesity 2-27 ity of with body with body 00:00[place] mass index mass index 00 Me dical of of Branch 40.0-49.9 40.0-49.9 Allergies, Adverse Reactions, Alerts Allergy Allergy Status Severity Reaction(s) Onset Inactive Treating Comm ents Source Name Type Date Date Clinician BUPROPIO DRUG Active Rash 2020-07 Univers N INGREDI 08-26 ity of 00:00: [place] 00 Medical Branch Bupropio Propensi Active Rash 2020-07 Suspected Uni vers n ty to 08-26 cause of ity of adverse 00:00: AGEP [place] reaction 00 06/2021 Medical s Branch FISH Drug Active Unknown-Cmnt 2020-07 Univ ers CONTAINI Class 2-20 ity of NG 00:00: [place] PRODUCTS 00 Medical Branch BANANA DRUG Active Unknown-Cmnt 2020-07 Univ ers INGREDI 2-20 ity of 00:00: [place] 00 Medical Branch Banana Propensi Active Unknown - 2020-07 Unive rs ty to See comments 2-20 ity of adverse 00:00: [place] reaction 00 Medical s Branch Fish Propensi Active Unknown - 2020-07 Unive rs Containi ty to See comments 2-20 it y of ng adverse 00:00: [place] Products reaction 00 Medica l s Branch Azithrom Propensi Active Other - See Liver U nivers ycin ty to comments 2- failure ity of adverse 00:00: [place] reaction 00 Medical s Branch AZITHROM DRUG Active Other-Cmnt Univ ers YCIN INGREDI 2- ity of 00:00: [place] 00 Medical Branch ERYTHROM DRUG Active SOB Univers YCIN 2- ity of 00:00: [place] 00 Medical Branch Erythrom Propensi Active Shortness of Univers ycin ty to Breath 2- ity of adverse 00:00: [place] reaction 00 Medical s Branch CEPHALEX DRUG Active N/V Univers IN INGREDI - ity of 00:00: [place] 00 Medical Branch LATEX DRUG Active ITCHING 2015- Univers INGREDI 08-05 ity of 00:00: [place] 00 Medical Branch CEFTRIAX DRUG Active N/V Univers ONE INGREDI 08-05 ity of SODIUM 00:00: [place] 00 Medical Branch Cephalex Propensi Active Nausea Univer s in ty to and/or 08-05 ity of adverse Vomiting 00:00: [place] reaction Medical s Branch Latex Propensi Active Itching Univers ty to 08-05 ity of adverse 00:00: [place] reaction 00 Medical s Branch Ceftriax Propensi Active Nausea 2015- Univer s one ty to and/or 08-05 ity of Sodium adverse Vomiting 00:00: [place] reaction 00 Medical s Branch Social History Social Habit Start Date Stop Date Quantity Comments Source Exposure to Not sure [facility]-CoV-2 [facility] (event) [place] Tobacco use and 2021-06-19 2021-06-19 Never used Universit y of exposure 00:00:00 00:00:00 [facility] Alcohol intake 2021-06-19 2021-06-19 Current drinker Unive rsity of 00:00:00 00:00:00 of alcohol [facility] (finding) [place] Sex Ass[birth year] Universit y of 00:00:00 00:00:00 [facility] Smoking Status Start Date Stop Date Source Never smoker [facility] Unknown if ever smoked [facility] Medications Ordered Filled Start Stop Current Ordering Indication Dosage Frequency Signature Comments Components Source Medication Medication Date Date Medication? Clinician (SIG) Name Name cetirizine 2020-07 Yes 20mg Take 20 mg U nivers (ZYRTEC) 10 2-24 by mouth ity of mg tablet 10:18: daily. [address] omeprazole 2020-07 Yes 20mg Take 20 mg U nivers 20 mg 2-24 by mouth ity of capsule 10:18: daily. [address] cetirizine 2020-07 Yes 20mg Take 20 mg U nivers (ZYRTEC) 10 2-24 by mouth ity of mg tablet 10:18: daily. [address] omeprazole 2020-07 Yes 20mg Take 20 mg U nivers 20 mg 224 by mouth ity of capsule 10:18: daily. [place] [facility] Branch [facility]07 Yes [id number] Apply to [facility] ne 2-24 area(s) 2 ity of acetonide 00:00: (two) [place] 0.1 % cream 00 times Medical daily. Branch triamcinolo 2020-07 Yes [id number] Apply to [facility] ne 2-24 area(s) 2 ity of acetonide 00:00: (two) [place] 0.1 % cream 00 times Medical daily. Branch furosemide 2020-07- Yes 20mg 20 mg, Univ ers (LASIX) 08-27 12- Slow IV ity of injection 00:00: 23:59 Push, Q6H, [place] 20 mg 00 :00 4 doses, Medical First dose Branch (after last reorder) on Tue06/25/21 at 1800, Last dose on Tue06/26/21 at 1200, Routine furosemide 2020-07- No 20mg 20 mg, Univ ers (LASIX) 08-26 Slow IV ity of injection 00:00: 18:14 [place], Q6H, [place] 20 mg 00 :00 4 doses, Medical First dose Branch (after last reorder) on Tue06/24/21 at 1800, Last dose on Tue06/25/21 at 1200, Routine polyethylen 2020-07 Yes 17g 17 g, Unive rs e glycol 08-25 Oral, ity of 3350 powder 22:15: DAILY, [place] 17 g 00 First dose Medical (after Branch last modificati on) on Tue06/24/21 at 1615, Until Discontinu ed, Routine phenazopyri 2020-07- No 200mg 200 mg, U nivers dine 08-24 Oral, TID, ity of (PYRIDIUM) 20:00: 14:43 6 doses, [place] tablet 200 00 :00 First dose Med ical mg on Tue06/23/21 at 1400, Last dose on Tue06/25/21 at 0800, Routine furosemide 2020-07- No 20mg 20 mg, Univ ers (LASIX) 08-24 Slow IV ity of injection 18:00: 12:00 Push, Q6H, [place] 20 mg 00 :00 4 doses, Medical First dose Branch on Tue06/23/21 at 1200, Last dose on Tue06/24/21 at 0600, Routine cetirizine 2020-07 Yes 5mg 5 mg, Univer s (ZYRTEC) 2- Oral, ity of tablet 5 mg 15:49: QHSPRN, [place] 57 Starting Medical on Tue Branch 06/23/21 at 0949, Until Discontinu ed, Routine, Itching hydrOXYzine 2020-07 Yes 25mg 25 mg, Univ ers (ATARAX) 08-24 Oral, ity of tablet 25 15:43: Q6HPRN, [place] mg 01 Starting Medical on Tue Branch 06/23/21 at 0943, Until Discontinu ed, Routine, Itching hydrOXYzine 2020-07- No 10mg 10 mg, Uni vers (ATARAX) 08-23 Oral, ity of tablet 10 20:30: 15:43 Q6HPRN, [place] mg 18 :21 Starting Medical on Tue Branch 06/22/21 at 1430, Until Tue06/23/21 at 0943, Routine, Itching triamcinolo 2020-07 Yes Topical, Un kelly ne 08-22 BID, First ity of acetonide 02:00: dose on [place] (TRIDERM) 00 Sat Medical 0.1 % cream 06/20/21 Bran ch at 2000, Until Discontinu ed, Routine acetaminoph 2020-07 No 1000mg 1,000 mg, Univers en ADULT 08-22 IV ity of (OFIRMEV) 02:00: 02:11 Infusion, [place] injection 00 :00 Administer Medi merna 1,000 mg over 15 Branch Minutes, Q12H, 2 doses, First dose on 06/20/21 at 2000, Last dose on 06/21/21 at 0800, Routine
Indicatio n: Non-periop erative Patient
Approved by: Per Policy (NPO Status) albumin 2020-07 No 25g 25 g, IV Unive rs (ALBUMINAR 08-21 Infusion, ity of 25%) 25 % 20:00: 19:17 ONCE, 1 [place] injection 00 :00 dose, On Medica l 25 g Sat Branch 06/20/21 at 1400, 100 mL
Silvia cation: NEPHROTIC SYNDROME (ACUTE, SEVERE PERIPHERAL OR PULMONARY EDEMA)
Comments: Short-term use of albumin in combinatio n with diuretic therapy when: serum albumin <2 g/dL and optimal diuretic therapy alone has failed ca 2020-07- Yes 1{packe 1 Packet, Univ ers acetate-alu 2-18 12-25 t} Topical, ity of m sulfate 17:45: 13:59 TID, 21 [place] (DOMEBORO) 00 :00 doses, Medical TOPICAL First dose Branch packet 1 on Sat Packet 06/20/21 at 1145, Last dose on Tue06/26/21 at 2000, Routine bictegrav-e 2020-07 Yes 1{tbl} 1 tablet, Univers mtricit-ten 2-18 Oral, ity of ofov ala 15:00: DAILY, [place] (BIKTARVY) First dose Med ical 50-200-25 on Sat Branch mg tablet 1 06/20/21 tablet at 0900, Until Discontinu ed, Routine multivitami 2020-07 Yes 1{tbl} 1 tablet, Univers n tablet 1 2-18 Oral, ity of tablet 15:00: DAILY, [place] 00 First dose Medical on Sat Branch 06/20/21 at 0900, Until Discontinu ed, Routine lactated 2020-07- No 1000mL at 150 [facility] ers ringers IV 2-18 12-20 mL/hr, ity of infusion 15:00: 22:12 1,000 mL, [place] 1,000 mL 00 :48 IV Medical Infusion, Branch CONTINUOUS , Starting on 06/20/21 at 0900, Until 06/22/21 at 1612, Routine albumin 2020-07- No 25g 25 g, IV Unive rs (ALBUTEIN 5 2-18 12-18 Infusion, it y of %) 5 % 10:30: 09:29 ONCE, 1 [place] injection 00 :00 dose, On Medica l 25 g Sat Branch 06/20/21 at 0430, 500 mL
Silvia cation: SEVERE SEPSIS AND SEPTIC SHOCK
C omments: First-line therapy: Crystalloi ds. Albumin in fluid resuscitat ion when patient requires substantia l amounts of crystalloi ds. lactated 2020-07- No 500mL at 999 Unive rs ringers IV 2-18 12-18 mL/hr, 500 it y of infusion 10:00: 16:46 mL, [place] 500 mL 00 :00 Intravenou Medical s, ONCE, 1 Branch dose, On 06/20/21 at 0400, Routine lactated 2020-07- No 500mL at 999 Unive rs ringers IV 2-18 12-18 mL/hr, 500 it y of infusion 08:50: 09:00 mL, [place] 500 mL 00 :00 Intravenou Medical s, ONCE, 1 Branch dose, On 06/20/21 at 0300, Routine lactated 2020-07- No 500mL at 999 Unive rs ringers IV 2-18 12-18 mL/hr, 500 it y of infusion 07:00: 07:04 mL, [place] 500 mL 00 :00 Intravenou Medical s, ONCE, 1 Branch dose, On 06/20/21 at 0100, Routine zinc 2020-07 Yes 220mg 220 mg, Univers sulfate 2-18 Oral, TID, ity of (ORAZINC) 02:00: First dose [place] capsule 220 00 on Tue Medica l mg 06/19/21 Branch at 1999, Until Discontinu ed, Routine ascorbic 2020-07 Yes 500mg 500 mg, Unive rs acid 2-18 Oral, BID, ity of (vitamin C) 02:00: First dose [place] (VITAMIN C) 00 on Tue Medica l tablet 500 06/19/21 Branc h mg at 1999, Until Discontinu ed, Routine chlorhexidi 2020-07 Yes 15mL 15 mL, Univ ers ne 2-18 Oral ity of (PERIDEX) 02:00: ([place] 0.12 % 00 Spit Out), Medical mouthwash BID, First Bran ch 15 mL dose on Tue06/19/21 at 1999, Until Discontinu ed, Routine magnesium 2020-07- No 4g 4 g, IV Univ ers sulfate in 2-18 12-18 Piggyback, it y of water 4 00:30: 02:20 ONCE, 1 [place] gram/50 mL 00 :00 dose, On Medic al (8 %) IV Tue Piggyback 4 06/19/21 g at 1830, Routine Sliding 2020-07 Yes Subcutaneo [facility] ers Scale 2-18 us, Q6H, ity of Insulin-Reg 00:00: First dose [place] ular + Fsbg 00 on Tue Medica l Testing 06/19/21 Branch at 1800, Until Discontinu ed, Routine enoxaparin 2020-07 Yes 40mg 40 mg, Unive rs (LOVENOX) 08-20 Subcutaneo ity of injection 23:00: us, DAILY, [place] 40 mg 00 First dose Medical on Tue Branch 06/19/21 at 1700, Until Discontinu ed, Routine ceFEPIme 2020-07- No 2000mg 2,000 mg, U nivers (MAXIPIME) 08-20 IV ity of 2,000 mg in 23:00: 17:37 Piggyback, [place] NaCl 0.9% 00 :00 Q12H ABX, Medic al (NS) 100 mL First dose Br anch MINI-BAG on Tue06/19/21 at 1700, Until Discontinu ed, Administer over 30 Minutes, 100 mL
Reas on for Anti-Infec tive: Empiric Therapy for Suspected Infection& lt;br>Empi kevin Therapy Site: Other
O ther site: skin/soft tissue, urinary tract infection& lt;br>Dura tion of therapy: 7 days lactated 2020-07 No 1000mL at 999 [facility] ers ringers IV 2-17 12-17 mL/hr, ity of infusion 22:45: 22:52 1,000 mL, [place] 1,000 mL 00 :00 Intravenou Medic al s, ONCE, 1 Branch dose, On Tue06/19/21 at 1645, Routine FENTanyl PF 2020-07 Yes 50ug 50 mcg, Uni vers (SUBLIMAZE 2-17 Slow IV ity of (PF)) 21:49: Push, [place] injection 48 Q5MIN PRN, Medi merna 50 mcg 3 doses, Branch Starting on Tue06/19/21 at 1549, Until Discontinu ed, Routine, tube room ondansetron 2020-07 Yes 4mg 4 mg, Slow Univers (ZOFRAN 2-17 IV Push, ity of (PF)) 21:48: Q6HPRN, [place] injection 4 41 Starting Medi merna mg on Fri Branch 06/19/21 at 1548, Until Discontinu ed, Routine, Nausea and Vomiting (N/V) morpHINE 2020-07 Yes 2mg 2 mg, Slow Uni vers injection 2 08-20 IV Push, ity of mg 21:48: Q4HPRN, [place] 03 Starting Medical on Fri Branch 06/19/21 at 1548, Until Discontinu ed, Routine, Pain (scale 7-10) HYDROcodone 2020-07 Yes 1{tbl} 1 tablet, Univers -acetaminop 08-20 Oral, ity of hen (NORCO 21:47: Q6HPRN, [place] 5) 5-325 mg 51 Starting Medi merna tablet 1 on Tue Branch tablet 06/19/21 at 1547, Until Discontinu ed, Routine, Pain (scale 4-6) acetaminoph 2020-07 Yes 650mg 650 mg, Un kelly en 08-20 Oral, ity of (TYLENOL) 21:47: Q6HPRN, [place] tablet 650 51 Starting Medic al mg on Fri Branch 06/19/21 at 1547, Until Discontinu ed, Routine, Pain (scale 1-3) vancomycin 2020-07- No 1000mg 1,000 mg, Univers (VANCOCIN) 08-20 IV ity of 1,000 mg in 21:45: 15:54 Piggyback, [place] NaCl 0.9% 00 :29 Q12H ABX, Medic al (NS) 250 mL First dose Br anch VIAL-MATE on Tue IV 06/19/21 piggyback at 1545, Until Discontinu ed, Administer over 60 Minutes, 250 mL
Reas on for Anti-Infec tive: Empiric Therapy for Suspected Infection& lt;br>Empi kevin Therapy Site: Skin / Soft tissue
Duration of therapy: 7 days pantoprazol 2020-07- No 3143 40mg 40 mg, Uni vers e -06-21 Slow IV ity of (PROTONIX) 21:45: 22:21 Push, [place] injection 00 :00 Q24H, 3 Medical 40 mg doses, Branch First dose on 06/19/21 at 1545, Last dose on 06/21/21 at 1545 D5W 0.45% 2020-07- No IV Univers NaCl 2-17 12-18 Infusion, ity of (1/2NS) 1 L 21:45: 13:47 at 100 [place] + KCL 20 00 :19 mL/hr, Medical mEq CONTINUOUS Branch , Starting on Tue06/19/21 at 1545, Until 06/20/21 at 0747, Routine glucagon 2020-07 Yes 1mg 1 mg, Univers (GLUCAGEN 2-17 Intramuscu ity of DIAGNOSTIC 21:38: lar, PRN, [place] KIT) 47 Starting Medical injection 1 on Tue Branch mg 06/19/21 at 1538, Until Discontinu ed, DONNIE, Blood Glucose < or = 70 mg/dL and patient is unable to swallow or has mental changes. dextrose 50 2020-07 Yes 25mL 25 mL, Univ ers % in water 17 Slow IV ity of (D50W) 21:38: Push, PRN, [place] injection 47 Starting Medica l 25 mL on Tue Branch 06/19/21 at 1538, Until Discontinu ed, DONNIE, Blood Glucose < or = 70 mg/dL and patient is unable to swallow or has mental status changes. cetirizine 2020-07 Yes 20mg Take 20 mg U nivers (ZYRTEC) 10 2-17 by mouth ity of mg tablet 15:46: daily. [address] omeprazole 2020-07 Yes 20mg Take 20 mg U nivers 20 mg 2-17 by mouth ity of capsule 15:46: daily. [address] naproxen 2019-07 Yes [id number] 550mg Take 1 Un kelly sodium 1-18 tablet by ity of (ANAPROX 00:00: mouth 2 [place] DS) 550 mg 00 (two) Medical tablet times Branch daily with meals. methylPREDN 2019-07 Yes [id number] Take by Univers ISolone 1-18 mouth ity of (MEDROL, 00:00: SEE-INSTRU [place] JOY,) 4 mg 00 CTIONS. Medica l tablets follow Branch package directions naproxen 2019-07 Yes [id number] 550mg Take 1 Univers sodium 1-18 tablet by ity of (ANAPROX 00:00: mouth 2 [place] DS) 550 mg 00 (two) Medical tablet times Branch daily with meals. methylPREDN 2020- Yes [id number] Take by Univers ISolone 1-18 mouth ity of (MEDROL, 00:00: SEE-INSTRU [place] JOY,) 4 mg 00 CTIONS. Medica l tablets follow Branch package directions naproxen 2019- Yes [id number] 550mg Take 1 Univers sodium 1-18 tablet by ity of (ANAPROX 00:00: mouth 2 [place] DS) 550 mg 00 (two) Medical tablet times Branch daily with meals. methylPREDN 2019- Yes [id number] Take by Univers ISolone 1-18 mouth ity of (MEDROL, 00:00: SEE-INSTRU [place] JOY,) 4 mg 00 CTIONS. Medica l tablets follow Branch package directions naproxen 2019-07 Yes [id number] 550mg Take 1 Univers sodium 1-18 tablet by ity of (ANAPROX 00:00: mouth 2 [place] DS) 550 mg 00 (two) Medical tablet times Branch daily with meals. methylPREDN 2019- Yes [id number] Take by Univers ISolone 1-18 mouth ity of (MEDROL, 00:00: SEE-INSTRU [place] JOY,) 4 mg 00 CTIONS. Medica l tablets follow Branch package directions methocarbam 2019-07 2020- No [id number] 500mg Take 1 Univers oL 500 mg 1-18 11-24 tablet by ity of tablet 00:00: 05:59 mouth 3 [place] 00 :00 (three) Medical times Branch daily for 5 days. cetirizine 2017-0 Yes 20mg Take 20 mg U nivers (ZYRTEC) 10 2-27 by mouth ity of mg tablet 19:00: daily. [address] omeprazole 2017-0 Yes 20mg Take 20 mg U nivers 20 mg 2-27 by mouth ity of capsule 19:00: daily. [address] Branch clindamycin 2017-0 Yes 300mg Take 1 Uni vers 300 mg 2-27 capsule by ity of capsule 00:00: mouth 4 [place] 00 (four) Medical times Branch daily. clindamycin 2017-0 Yes 300mg Take 1 Uni vers 300 mg 2-27 capsule by ity of capsule 00:00: mouth 4 [place] 00 (four) Medical times Branch daily. clindamycin 2017-0 Yes 300mg Take 1 Uni vers 300 mg 2-27 capsule by ity of capsule 00:00: mouth 4 00 (four) Medical times Branch daily. clindamycin 2017-0 Yes 300mg Take 1 Uni vers 300 mg 2-27 capsule by ity of capsule 00:00: mouth 4 00 (four) Medical times Branch daily. clotrimazol 2016-0 Yes Apply to U nivers e-betametha 2-02 area(s) 2 ity of sone 00:00: (two) [place] (LOTRISONE) 00 times Medical cream daily. Branch Nitrofurant 2016-0 Yes 100mg Take 1 Cap Univers oin&Nit. 2-02 by mouth 2 ity o f Macrocryst 00:00: (two) [place] (MACROBID) 00 times Medical 100 mg daily. Branch capsule clotrimazol 2016-0 Yes Apply to U nivers e-betametha 2-02 area(s) 2 ity of sone 00:00: (two) [place] (LOTRISONE) 00 times Medical cream daily. Branch Nitrofurant 2016-0 Yes 100mg Take 1 Cap Univers oin&Nit. 2-02 by mouth 2 ity o f Macrocryst 00:00: (two) [place] (MACROBID) 00 times Medical 100 mg daily. Branch capsule clotrimazol 2016-0 Yes Apply to U nivers e-betametha 2-02 area(s) 2 ity of sone 00:00: (two) [place] (LOTRISONE) 00 times Medical cream daily. Branch Nitrofurant 2016-0 Yes 100mg Take 1 Cap Univers oin&Nit. 2-02 by mouth 2 ity o f Macrocryst 00:00: (two) [place] (MACROBID) 00 times Medical 100 mg daily. Branch capsule clotrimazol 2016-0 Yes Apply to U nivers e-betametha 2-02 area(s) 2 ity of sone 00:00: (two) [place] (LOTRISONE) 00 times Medical cream daily. Branch Nitrofurant 2016-0 Yes 100mg Take 1 Cap Univers oin&Nit. 2-02 by mouth 2 ity o f Macrocryst 00:00: (two) [place] (MACROBID) 00 times Medical 100 mg daily. Branch capsule Vital Signs Vital Name Observation Time Observation Value Comments Source Systolic blood 2021-06-26 14:00:00 129 mm[Hg] Univer sity of pressure [facility] Diastolic blood 2021-06-26 14:00:00 75 mm[Hg] Unive rsity of pressure [facility] Heart rate 2021-06-26 14:00:00 82 /min [facility]i ty [facility] [place] [facility] [place] Body temperature 2021-06-26 14:00:00 36.44 Shaneka Univ ersity of [facility] Respiratory rate 2021-06-26 14:00:00 18 /min Univ ersity of [place] [facility] [place] Oxygen saturation in 2021-06-26 14:00:00 95 /min University of Arterial blood by [place] [employer] merna Pulse oximetry Branch Body height 2021-06-22 17:00:00 167.6 cm Universi ty of [facility] Body weight 2021-06-22 17:00:00 133.3 kg Universi ty of [facility] BMI 2021-06-22 17:00:00 47.46 kg/m2 [facility] [place] [facility] [place] Systolic blood 2020-05-21 15:10:00 154 mm[Hg] Univer sity of pressure [place] [facility] [place] Diastolic blood 2020-05-21 15:10:00 97 mm[Hg] Unive rsity of pressure [facility] Heart rate 2020-05-21 15:10:00 99 /min [facility]i ty [facility] [place] [facility] [place] Body temperature 2020-05-21 15:10:00 36.44 Shaneka Univ ersity of [place] [facility] [place] Respiratory rate 2020-05-21 15:10:00 18 /min Univ ersity of [place] [facility] [place] Body height 2020-05-21 15:10:00 167.6 cm [facility] [place] [facility] [place] Body weight 2020-05-21 15:10:00 123.832 kg [facility] [place] [facility] BMI 2020-05-21 15:10:00 44.06 kg/m2 Universi ty of [facility] Oxygen saturation in 2020-05-21 15:10:00 97 /min University of Arterial blood by [facility] Pulse oximetry Branch Procedures Procedure Date / Time Performing Clinician Source Performed PHOSPHORUS 2021-06-26 11:43:00 Oc Ramirez [facility] MAGNESIUM 2021-06-26 11:43[facility]00 [facility] (NA, 2021-06-26 11:43:00 James [facility] K, CL, CO2, GLUCOSE, BUN, Medica l Branch CREATININE, CA) CBC WITHOUT DIFF 2021-06-26 11:43:00 James [facility] POCT GLUCOSE (AUTOMATED) 2021-06-25 23:59:00 [facility] 2021-06-25 17:53:00 [facility] (AUTOMATED) 2021-06-25 06:12:00 [facility] (AUTOMATED) 2021-06-24 23:14:00 [facility] (AUTOMATED) 2021-06-24 17:52:00 [facility] ([facility]OMATED) 2021-06-24 11:59:00 Jason Baldwin [facility] PHOSPHORUS 2021-06-24 10:51:00 David [facility] MAGNESIUM 2021-06-24 10:51:00 [facility] BASIC METABOLIC PANEL (NA, 2021-06-24 10:51:00 Jair Hernandez [facility] K, CL, CO2, GLUCOSE, BUN, Medica l Branch CREATININE, CA) CBC WITHOUT DIFF 2021-06-24 10:51:[address] [facility] POCT GLUCOSE (AUTOMATED) 2021-06-24 06:15:00 [facility] ([facility]) 2021-06-24 02:01:00 [facility]SE (AUTOMATED) 2021-06-23 23:10:00 [facility] (AUTOMATED) 2021-06-23 17:26:00 [facility]SE (AUTOMATED) 2021-06-23 11:32:00 Baldwin, Jason Uni [facility] PHOSPHORUS 2021-06-23 10:04:00 David [facility] MAGNESIUM 2021-06-23 10:04:00 David [facility] BASIC METABOLIC PANEL (NA, 2021-06-23 10:04:00 Jair Hernandez [facility] K, CL, CO2, GLUCOSE, BUN, Medica l Branch CREATININE, CA) VANCOMYCIN TROUGH 2021-06-23 10:04:00 Salazar Linda Sarah [facility] CBC WITHOUT DIFF 2021-06-23 10:04:[address] [facility] LACTIC ACID WHOLE BLOOD 2021-06-23 10:04:00 Salazar Linda [facility] HUMAN IMMUNODEFICIENCY 2021-06-23 10:04:[address] [facility] VIRUS 1 (HIV-1) BY [facility] h QUANTITATIVE NAAT POCT GLUCOSE (AUTOMATED) 2021-06-23 06:11:00 Jason Baldwin [facility] LACTIC ACID WHOLE BLOOD 2021-06-23 00:24:00 Salazar Linda [facility] POCT GLUCOSE (AUTOMATED) 2021-06-22 23:08:00 Jason Baldwin [facility] POCT GLUCOSE (AUTOMATED) 2021-06-22 18:19:00 Jason Baldwin [facility] CD4 SUBSET ASSAY 2021-06-22 17:53:00 Marija Nash [facility] [place] MYCOPLASMA PNEUMONIAE 2021-06-22 17:50:00 [facility] ANTIBODY, IGM [facility] LACTIC ACID WHOLE BLOOD 2021-06-22 17:50:00 [facility] XR CHEST 1 VW 2021-06-22 14:32:00 David [facility] AC VBG + LACTIC ACID 2021-06-22 11:21:00 David [facility] PHOSPHORUS 2021-06-22 11:20:00 David [facility] MAGNESIUM 2021-06-22 11:20:00 David [facility] COMP. METABOLIC PANEL 2021-06-22 11:20:00 [facility] ([id number]) [facility] CBC WITH DIFF 2021-06-22 11:20:00 David [facility] POCT GLUCOSE (AUTOMATED) 2021-06-22 11:18:00 Jason [facility] POCT GLUCOSE (AUTOMATED) 2021-06-22 05:35:00 Jason [facility] POCT GLUCOSE (AUTOMATED) 2021-06-22 00:34:00 Jason Baldwin [facility] POCT GLUCOSE (AUTOMATED) 2021-06-21 17:53:00 Jason [facility] POCT GLUCOSE (AUTOMATED) 2021-06-21 11:02:00 Jason Baldwin [facility] LACTIC ACID WHOLE BLOOD 2021-06-21 09:49:00 David [facility] PHOSPHORUS 2021-06-21 09:44:00 David [facility] MAGNESIUM 2021-06-21 09:44:00 David [facility] COMP. METABOLIC PANEL 2021-06-21 09:44:00 [facility] ([id number]) [facility] VANCOMYCIN TROUGH 2021-06-21 09:44:00 Clark Echols [facility] [place] CBC WITHOUT DIFF 2021-06-21 09:44:[address] [facility] LACTIC ACID WHOLE BLOOD 2021-06-21 05:12:00 David [facility] POCT GLUCOSE (AUTOMATED) 2021-06-21 05:11:00 Jason [facility] POCT GLUCOSE (AUTOMATED) 2021-06-20 23:55:00 Jason [facility] LACTIC ACID WHOLE BLOOD 2021-06-20 22:14:00 David [facility] LACTIC ACID WHOLE BLOOD 2021-06-20 18:18:[address] [facility] BASIC METABOLIC PANEL (NA, 2021-06-20 18:17:00 Jair Hernandez [facility] K, CL, CO2, GLUCOSE, BUN, Medica l Branch CREATININE, CA) POCT GLUCOSE (AUTOMATED) 2021-06-20 18:01:00 Jason Baldwin [facility] POCT GLUCOSE (AUTOMATED) 2021-06-20 10:46:00 Jason Baldwin [facility] PHOSPHORUS 2021-06-20 10:43:00 Onesimo [facility] MAGNESIUM 2021-06-20 10:43:00 Onesimo [facility] HEPATIC FUNCTION PANEL 2021-06-20 10:43:00 Sarah Schumacher [facility] ([id number]) (ALB,T.PRO,[facility] T,BU/BC,ALT,AST,ALK PHOS) BASIC METABOLIC PANEL (NA, 2021-06-20 10:43:00 Clark Echols [facility] K, CL, CO2, GLUCOSE, BUN, Medica l Branch CREATININE, CA) CBC WITH DIFF 2021-06-20 10:43:00 Onesimo [facility] POCT GLUCOSE (AUTOMATED) 2021-06-20 05:37:00 Jason Baldwin [facility] LACTIC ACID WHOLE BLOOD 2021-06-20 05:30:00 Onesimo [facility] URINE CULTURE 2021-06-19 23:12:00 Onesimo [facility] LACTIC ACID WHOLE BLOOD 2021-06-19 22:31:00 Onesimo [facility] PHOSPHORUS 2021-06-19 22:30:00 Onesimo [facility] MAGNESIUM 2021-06-19 22:30:00 Onesimo [facility] IONIZED CALCIUM 2021-06-19 22:30:00 Onesimo [facility] BASIC METABOLIC PANEL (NA, 2021-06-19 22:30:00 Clark Echols [facility] K, CL, CO2, GLUCOSE, BUN, Medica l Branch CREATININE, CA) CBC WITH DIFF 2021-06-19 22:30:00 Onesimo [facility] HB ABO GROUPING 2021-06-19 22:30:00 Onesimo, [facility] MRSA / MSSA SCREEN BY PCR, 2021-06-19 22:30:00 Clark Echols [facility] [place] POCT GLUCOSE (AUTOMATED) 2021-06-19 22:25:00 Jason Baldwin [facility] MEMORANDUM OF TRANSFER 2021-06-19 06:01:00 Doctor Unassigned, Un [facility] ([facility]) [facility] XR HIPS 3 VW RIGHT 2020-05-21 15:55:59 Vlad Vides [facility] y [facility] XR KNEE <3 VW RIGHT 2020-05-21 15:55:59 Vlad Vides [facility] Encounters Start End Encounter Admission Attending Care Care Encounter Source Date/Time Date/Time Type Type Clinicians Facility Department ID 2021-06-29 2021-06-29 Transition ARCHIE Tamayo [id number] Univers 00:00:00 00:00:00 of Care Ellen HUITRON [id number] i ty [facility] [id number] [facility] 403 Branch 2021-06-19 2021-06-26 Inpatient U [facility] [id number] Univers 15:45:00 10:18:00 JASON ochoa [facility] 2021-06-19 2021-06-26 Hospital PIOTR Baldwin [id number] Univers 15:45:00 10:18:00 Encounter Jason CRUZ [id number] ity [facility] 4.2.7.2.686 [place] as [id number] [facility] 088 Branch 2021-06-22 2021-06-22 [facility] [place] 1.2.840. [id number] Univers 10:26:00 23:59:00 Encounter Jason Baldwin [id number] ity of [facility] 4.2.7.2.686 William [id number] [facility] 031 Branch 2020-05-21 2020-05-21 Emergency [facility] [id number] Univers 09:13:00 10:22:00 Vlad Celis 350.1.13.10 i ty of [place] 4.2.7.2.686 [facility] [id number] [facility] 084 Branch 2020-05-21 2020-05-21 Emergency X [facility] ERT [id number] Univers 09:13:00 09:13:00 VLAD ochoa [facility] Results Test Description Test Time Test Comments Results Result Comments Source BASIC METABOLIC PANEL (NA, K, CL, CO2, GLUCOSE, BUN, 2021-06 12:22:03 CREATININE, CA) Test Item Value Reference Range Interpretation Comme nts NA (test code = 5928480389) 134 mmol/L 135-145 L K (test code = 6654384584) 4.3 mmol/L 3.5-5.0 CL (test code = 6282314750) 102 mmol/L 98-108 CO2 TOTAL (test code = 9540007385) 29 mmol/L 23-31 AGAP (test code = 8882114352) 2-16 BUN (test code = 7103596367) 14 mg/dL 7-23 GLUCOSE (test code = 1713081335) 106 mg/dL 70-110 CREATININE (test code = 0.60 mg/dL 0.50-1.04 9993061688) CALCIUM (test code = 3365098949) 8.3 mg/dL 8.6-10.6 L eGFR (test code = 1502327877) mL/min/1.73m2 ANA (test code = ANA) Association of Glomerular Filtration Rate (GFR) and Staging of Kidney Disease* + +-------- + ------+| GFR (mL/min/1.73 m2) ?| With Kidney Damage ?| ?Without Kidney Damage+ +-- + +| ?>90 ?| ?Stage one ?| ? Normal ?+ +------- + -------+| ?60-89 ?| ?Stage two ?| ? Decreased GFR ? + +-------- + ------+| ?30-59 ?| ?Stage three ?| ? Stage three ? + +-------- + ------+| ?15-29 ?| ?Stage four ? | ? Stage four ?+ +------- + -------+| ?<15 (or dialysis) ? ?| ?Stage five ? | ? Stage five ?+ +------- + -------+ *Each stage assumes the associated GFR level has been in effect for at least three months. ?Stages 1 to 5, with or without kidney disease, indicate chronic kidney disease. Notes: Determination of stages one and two (with eGFR >59mL/min/1.73 m2) requires estimation of kidney damage for at least three months as defined by structural or functional abnormalities of the kidney, manifested by either:Pathological abnormalities or Markers of kidney damage (including abnormalities in the composition of the blood or urine or abnormalities in imaging tests). Lab Interpretation (test code = Abnormal 27627-2) [facility] 12:22:03 Test Item Value Reference Range Interpretation Comments MAGNESIUM (test code = 0538795133) 2.1 mg/dL 1.7-2.4 Lab Interpretation (test code = Normal 10870-2) [facility]2021-[facility]-24 12:22:03 Test Item Value Reference Range Interpretation Comments PHOSPHORUS (test code = 5251031778) 4.5 mg/dL 2.5-5.0 Lab Interpretation (test code = Normal 51019-1) [facility] [place] [id number] 12:00:40 Test Item Value Reference Range Interpretation Comments WBC (test code = 6690-2) See_Comment H [A utomated message] The system [employer] generated this result transmit willie reference range : 4.30 - 11.10 10*3/?L. The reference range was not used to interpret this result as normal/abnormal . RBC (test code = 789-8) See_Comment L [Au tomated message] The system [employer] generated this result transmit willie reference range : 3.93 - 5.25 10* 6/?L. The reference r zakia was not used to interpret this result as normal/abnormal . HGB (test code = 718-7) 11.3 g/dL 11.6-15.0 L HCT (test code = 4544-3) 34.4 % 35.7-45.2 L MCH (test code = 785-6) 30.3 pg 25.9-32.8 MCV (test code = 787-2) 92.2 fL 80.6-95.5 MCHC (test code = 786-4) 32.8 g/dL 31.6-35.1 PLT (test code = 777-3) See_Comment [Au tomated message] The system [employer] generated this result transmit willie reference range : 166 - 358 10*3/?L. The reference range was not used to interpret this result as normal/abnormal . MPV (test code = 8.5 fL 9.5-12.9 L 65555-0) RDW-CV (test code = 13.8 % 12.0-15.5 788-0) RDW-SD (test code = 46.3 fL 39.0-49.9 72557-4) NRBC x10^3 (test code = <0.01 See_Comment [Au tomated message] 3266248275) The system [employer] generated this result transmit willie reference range : 10*3/?L. The reference range was not used to interpret this result as normal/abnormal . NRBC/100 WBC (test code See_Comment [Au tomated message] = 0325198903) The system [employer] generated this result transmit willie reference range : 0.0 - 10.0 /100 WBC s. The reference r zakia was not used to interpret this result as normal/abnormal . IPF % (test code = 7224209475) Lab Interpretation (test Abnormal code = 97543-1) [facility] GLUCOSE (AUTOMATED)2021-06-26 00:04:01 Test Item Value Reference Range Interpretation Comments POCT GLU (test code = 1819278435) 173 mg/dL 70-110 H Lab Interpretation (test code = Abnormal 31294-7) [facility] GLUCOSE (AUTOMATED)2021-06-25 17:55:35 Test Item Value Reference Range Interpretation Comments POCT GLU (test code = 8557707238) 145 mg/dL 70-110 H Lab Interpretation (test code = Abnormal 57065-1) [facility] GLUCOSE (AUTOMATED)2021-06-25 06:15:45 Test Item Value Reference Range Interpretation Comments POCT GLU (test code = 2307160746) 135 mg/dL 70-110 H Lab Interpretation (test code = Abnormal 56002-4) [facility] GLUCOSE (AUTOMATED)2021-06-24 23:16:03 Test Item Value Reference Range Interpretation Comments POCT GLU (test code = 6911168825) 110 mg/dL 70-110 Lab Interpretation (test code = Normal 76269-9) [facility]COP[facility] PNEUMONIAE ANTIBODY, [id number] 20:37:47 Test Item Value Reference Range Interpretation Comments Mycoplasma IGM (test 0.18 U/L See_Comment INTERPR ETIVE code = 5256-3) INFORMATION: ?Mycoplasma pneumoniae Ab, IgM ?0.76 U/L or less ... ....... Negative: No cl inically ?significan t amount of ?M. pneum oniae IgM antibody ?de tected. ?0.77 - 0.95 U/ L ........... Low Positive: M. pn eumoniae- ?specific I gM presumptively ?detected. Ghada ection of a ?follow-u p sample in 1-2 ?week s is recommended to ?assure reactiv ity. ?0.96 U/L or gr eater ....... Positiv e: Highly significant ?amount of M. pneumonia e- ?specific IgM a ntibody ?detected. Josiah dougherty, low levels ? of IgM antibodies may ?occasionally p ersist for more ?th an 12 months post-infection. Performed By: S[facility] [place] [id number] aboratory Director: Nirmala Layton MD [Aut omated message] The sy stem which generated this result transmit willie reference range : <=0.76. The reference r zakia was not used to int erpret this result as normal/abnormal . [facility] GLUCOSE (AUTOMATED)2021-06-24 17:53:24 Test Item Value Reference Range Interpretation Comments POCT GLU (test code = 0689242398) 120 mg/dL 70-110 H Lab Interpretation (test code = Abnormal 10156-3) [facility] GLUCOSE (AUTOMATED)2021-06-24 12:00:41 Test Item Value Reference Range Interpretation Comments POCT GLU (test code = 6742111044) 152 mg/dL 70-110 H Lab Interpretation (test code = Abnormal 23663-5) [facility] (NA, K, CL, CO2, GLUCOSE, BUN, CREATININE, CA)2021-06-24 11:54:18 Test Item Value Reference Range Interpretation Comments NA (test code = 134 mmol/L 135-145 L 7484765405) K (test code = 3.5 mmol/L 3.5-5.0 4025909711) CL (test code = 105 mmol/L 98-108 2643562099) CO2 TOTAL (test code = 24 mmol/L 23-31 5146323002) AGAP (test code = 2-16 4663735137) BUN (test code = 20 mg/dL 7-23 2141882339) GLUCOSE (test code = 191 mg/dL 70-110 H 4695998620) CREATININE (test code = 0.77 mg/dL 0.50-1.04 9565056245) CALCIUM (test code = 7.7 mg/dL 8.6-10.6 L 4194965656) eGFR (test code = mL/min/1.73m2 0042050935) ANA (test code = ANA) Association of Glomerular Filtration Rate (GFR) and Staging of Kidney Disease* + --+ --+ ------+| GFR (mL/min/1.73 m2) ?| With Kidney Damage ?| ?Without Kidney Damage+ --------+ --------+ +| ?>90 ?| ?Stage one ?| ? Normal ?+ ---+ ---+ -------+| ?60-89 ?| ?Stage two ?| ? Decreased GFR ? + --+ --+ ------+| ?30-59 ?| ?Stage three ?| ? Stage three ? + --+ --+ ------+| ?15-29 ?| ?Stage four ? | ? Stage four ?+ ---+ ---+ -------+| ?<15 (or dialysis) ? ?| ?Stage five ? | ? Stage five ?+ ---+ ---+ -------+ *Each stage assumes the associated GFR level has been in effect for at least three months. ?Stages 1 to 5, with or without kidney disease, indicate chronic kidney disease. Notes: Determination of stages one and two (with eGFR >59mL/min/1.73 m2) requires estimation of kidney damage for at least three months as defined by structural or functional abnormalities of the kidney, manifested by either:Pathological abnormalities or Markers of kidney damage (including abnormalities in the composition of the blood or urine or abnormalities in imaging tests). Lab Interpretation Abnormal (test code = 97695-9) [facility]21-[facility] 11:54:18 Test Item Value Reference Range Interpretation Comments PHOSPHORUS (test code = 5522290873) 3.4 mg/dL 2.5-5.0 Lab Interpretation (test code = Normal 76806-5) [facility]2021-[facility]-22 11:54:18 Test Item Value Reference Range Interpretation Comments MAGNESIUM (test code = 2299731280) 2.0 mg/dL 1.7-2.4 Lab Interpretation (test code = Normal 60323-1) [facility] WITHOUT [id number] 11:12:33 Test Item Value Reference Range Interpretation Comments WBC (test code = 6690-2) See_Comment H [A utomated message] The system [employer] generated this result transmit willie reference range : 4.30 - 11.10 10*3/?L. The reference range was not used to interpret this result as normal/abnormal . RBC (test code = 789-8) See_Comment L [Au tomated message] The system [facility] generated this result transmit willie reference range : 3.93 - 5.25 10* 6/?L. The reference r zakia was not used to interpret this result as normal/abnormal . HGB (test code = 718-7) 10.2 g/dL 11.6-15.0 L HCT (test code = 4544-3) 30.3 % 35.7-45.2 L MCH (test code = 785-6) 30.6 pg 25.9-32.8 MCV (test code = 787-2) 91.0 fL 80.6-95.5 MCHC (test code = 786-4) 33.7 g/dL 31.6-35.1 PLT (test code = 777-3) See_Comment [Au tomated message] The system [facility] generated this result transmit willie reference range : 166 - 358 10*3/?L. The reference range was not used to interpret this result as normal/abnormal . MPV (test code = 8.9 fL 9.5-12.9 L 60306-7) RDW-CV (test code = 14.5 % 12.0-15.5 788-0) RDW-SD (test code = 47.9 fL 39.0-49.9 39667-7) NRBC x10^3 (test code = See_Comment [Au tomated message] 4888060762) The system [employer] generated this result transmit willie reference range : 10*3/?L. The reference range was not used to interpret this result as normal/abnormal . NRBC/100 WBC (test code See_Comment [Au tomated message] = 9674632195) The system [facility] generated this result transmit willie reference range : 0.0 - 10.0 /100 WBC s. The reference r zakia was not used to interpret this result as normal/abnormal . IPF % (test code = 8230236528) Lab Interpretation (test Abnormal code = 20633-5) [facility] GLUCOSE (AUTOMATED)2021-06-24 06:19:32 Test Item Value Reference Range Interpretation Comments POCT GLU (test code = 5508804237) 275 mg/dL 70-110 H Lab Interpretation (test code = Abnormal 82535-4) [facility] GLUCOSE (AUTOMATED)2021-06-24 02:05:55 Test Item Value Reference Range Interpretation Comments POCT GLU (test code = 7817337929) 175 mg/dL 70-110 H Lab Interpretation (test code = Abnormal 53864-1) [facility] GLUCOSE (AUTOMATED)2021-06-23 23:20:29 Test Item Value Reference Range Interpretation Comments POCT GLU (test code = 1270262928) 173 mg/dL 70-110 H Lab Interpretation (test code = Abnormal 57521-6) [facility] (HIV-1) BY QUANTITATIVE [id number] 21:30:43 Test Item Value Reference Range Interpretation Comments HIV-1 Quantitative Not Detected Not Detected Interpretation (test code = 8338674136) ANA (test code = ANA) The Aptima HIV-1 Quant assay is an FDA-approved nucleic acid amplification test (NAAT) for the quantitation of human immunodeficiency virus type 1 (HIV-1) RNA in human plasma from HIV-1 infected individuals. ?It is intended for use as an aid in monitoring the effects of antiretroviral treatment. ?It is not approved for use as a donor screening test for HIV-1 or as a diagnostic test to confirm the presence of HIV-1 infection. The quantitative range of this assay is 1.47 - 7.00 log copies/mL or 30 - 10,000,000 copies/mL. An interpretation of "Not Detected" does not rule out the presence of inhibitors in the patient specimen or HIV-1 RNA concentration below the level of detection of the test. ?Care should be taken when interpreting any single viral load determination. Detected, not Quantifiable: HIV-1 RNA detected, but at a level below 30 copies/mL (1.47 log copies/mL). ?HIV-1 RNA concentration is below the lower limit of quantitation of the assay. Indeterminate: Error indicated in the generation of the result. ?Please submit a new specimen for repeat testing if clinically indicated. Lab Interpretation Normal (test code = 92470-4) [facility] SUBSET [id number] 18:16:29 Test Item Value Reference Range Interpretation Comments CD4 % (test code = 29 % 31-60 L 8123-2) CD4 Absolute (test code See_Comment [Au tomated message] = 59592-7) The system [employer] generated this result transmitted ref erence range: 410-1,59 0 Cells/?L. The reference range was not used to int erpret this result as normal/abnormal . Lab Interpretation (test Abnormal code = 99084-7) [facility] GLUCOSE (AUTOMATED)2021-06-23 17:28:01 Test Item Value Reference Range Interpretation Comments POCT GLU (test code = 0658360706) 103 mg/dL 70-110 Lab Interpretation (test code = Normal 94945-6) [facility] Trough Level - Draw immediately prior to the NEXT dose, but, no more than 60 minutes before the 2ND dose. 2021-06-23 11:44:09 Test Item Value Reference Range Interpretation Comments VANCO TROUGH (test code <5.0 10.0-20.0 L = 7401372788) ANA (test code = ANA) Toxic Range: ?>20 ug/mL 15-20 ug/mL is recommended for severe infection or when Vancomycin ROSETTA is greater than or equal to 2. Lab Interpretation (test Abnormal code = 22992-6) [facility] GLUCOSE (AUTOMATED)2021-06-23 11:34:02 Test Item Value Reference Range Interpretation Comments POCT GLU (test code = 7651720644) 128 mg/dL 70-110 H Lab Interpretation (test code = Abnormal 42228-4) [facility]OLIC PANEL (NA, K, CL, CO2, GLUCOSE, BUN, CREATININE, CA)2021-06-23 11:08:10 Test Item Value Reference Range Interpretation Comments NA (test code = 135 mmol/L 135-145 2431951893) K (test code = 4.1 mmol/L 3.5-5.0 9275161109) CL (test code = 110 mmol/L 98-108 H 8000225317) CO2 TOTAL (test code = 24 mmol/L 23-31 2548668605) AGAP (test code = 2-16 L 9204172342) BUN (test code = 17 mg/dL 7-23 3107497466) GLUCOSE (test code = 135 mg/dL 70-110 H 2681239255) CREATININE (test code = 0.67 mg/dL 0.50-1.04 5911776614) CALCIUM (test code = 8.0 mg/dL 8.6-10.6 L 7690423337) eGFR (test code = mL/min/1.73m2 6524414668) ANA (test code = ANA) Association of Glomerular Filtration Rate (GFR) and Staging of Kidney Disease* + --+ --+ ------+| GFR (mL/min/1.73 m2) ?| With Kidney Damage ?| ?Without Kidney Damage+ --------+ --------+ +| ?>90 ?| ?Stage one ?| ? Normal ?+ ---+ ---+ -------+| ?60-89 ?| ?Stage two ?| ? Decreased GFR ? + --+ --+ ------+| ?30-59 ?| ?Stage three ?| ? Stage three ? + --+ --+ ------+| ?15-29 ?| ?Stage four ? | ? Stage four ?+ ---+ ---+ -------+| ?<15 (or dialysis) ? ?| ?Stage five ? | ? Stage five ?+ ---+ ---+ -------+ *Each stage assumes the associated GFR level has been in effect for at least three months. ?Stages 1 to 5, with or without kidney disease, indicate chronic kidney disease. Notes: Determination of stages one and two (with eGFR >59mL/min/1.73 m2) requires estimation of kidney damage for at least three months as defined by structural or functional abnormalities of the kidney, manifested by either:Pathological abnormalities or Markers of kidney damage (including abnormalities in the composition of the blood or urine or abnormalities in imaging tests). Lab Interpretation Abnormal (test code = 83701-7) [facility]21-[facility] 11:08:10 Test Item Value Reference Range Interpretation Comments MAGNESIUM (test code = 8018633110) 2.2 mg/dL 1.7-2.4 Lab Interpretation (test code = Normal 15190-3) [facility]2021-[facility]-21 11:08:10 Test Item Value Reference Range Interpretation Comments PHOSPHORUS (test code = 1143373351) 2.9 mg/dL 2.5-5.0 Lab Interpretation (test code = Normal 30134-7) [facility] [id number] 10:23:04 Test Item Value Reference Range Interpretation Comments WBC (test code = 6690-2) See_Comment H [A utomated message] The system [employer] generated this result transmit willie reference range : 4.30 - 11.10 10*3/?L. The reference range was not used to interpret this result as normal/abnormal . RBC (test code = 789-8) See_Comment L [Au tomated message] The system [employer] generated this result transmit willie reference range : 3.93 - 5.25 10* 6/?L. The reference r zakia was not used to interpret this result as normal/abnormal . HGB (test code = 718-7) 10.4 g/dL 11.6-15.0 L HCT (test code = 4544-3) 30.1 % 35.7-45.2 L MCH (test code = 785-6) 31.0 pg 25.9-32.8 MCV (test code = 787-2) 89.9 fL 80.6-95.5 MCHC (test code = 786-4) 34.6 g/dL 31.6-35.1 PLT (test code = 777-3) See_Comment [Au tomated message] The system [employer] generated this result transmit willie reference range : 166 - 358 10*3/?L. The reference range was not used to interpret this result as normal/abnormal . MPV (test code = 8.8 fL 9.5-12.9 L 19679-9) RDW-CV (test code = 14.2 % 12.0-15.5 788-0) RDW-SD (test code = 46.4 fL 39.0-49.9 53854-9) NRBC x10^3 (test code = See_Comment [Au tomated message] 4405259091) The system [employer] generated this result transmit willie reference range : 10*3/?L. The reference range was not used to interpret this result as normal/abnormal . NRBC/100 WBC (test code See_Comment [Au tomated message] = 2935500175) The system [employer] generated this result transmit willie reference range : 0.0 - 10.0 /100 WBC s. The reference r zakia was not used to interpret this result as normal/abnormal . IPF % (test code = 6328210691) Lab Interpretation (test Abnormal code = 17577-9) [facility]enL[facility] Acid Whole [id number] 10:16:20 Test Item Value Reference Range Interpretation Comments LACTIC ACID (test code = 2.09 mmol/L 0.50-2.20 2856904568) Lab Interpretation (test code = Normal 02299-9) [facility] GLUCOSE (AUTOMATED)2021-06-23 06:12:14 Test Item Value Reference Range Interpretation Comments POCT GLU (test code = 7022454441) 138 mg/dL 70-110 H Lab Interpretation (test code = Abnormal 66015-7) [facility] [id number] 00:54:09 Test Item Value Reference Range Interpretation Comments LACTIC ACID (test code = 3.13 mmol/L 0.50-2.20 H 2701399802) Lab Interpretation (test code = Abnormal 06513-6) [facility] GLUCOSE (AUTOMATED)2021-06-22 23:21:03 Test Item Value Reference Range Interpretation Comments POCT GLU (test code = 2973056624) 143 mg/dL 70-110 H Lab Interpretation (test code = Abnormal 51334-3) [facility] GLUCOSE (AUTOMATED)2021-06-22 18:45:21 Test Item Value Reference Range Interpretation Comments POCT GLU (test code = 1237367646) 123 mg/dL 70-110 H Lab Interpretation (test code = Abnormal 08189-2) [facility] [id number] 18:03:01 Test Item Value Reference Range Interpretation Comments LACTIC ACID (test code = 3.63 mmol/L 0.50-2.20 H 9459308253) Lab Interpretation (test code = Abnormal 81004-1) [facility] [id number] 13:14:33 Test Item Value Reference Range Interpretation Comments WBC (test code = See_Comment H [Automated 6690-2) message] The system which generated this result transmitted reference range : 4.30 - 11.10 10*3/?L. The reference range was not used to interpret this result as normal/abnormal . RBC (test code = See_Comment L [Automated 789-8) message] The system which generated this result transmitted reference range : 3.93 - 5.25 10*6/?L. The reference range was not used to interpret this result as normal/abnormal . HGB (test code = 10.6 g/dL 11.6-15.0 L 718-7) HCT (test code = 31.9 % 35.7-45.2 L 4544-3) MCV (test code = 91.1 fL 80.6-95.5 787-2) MCH (test code = 30.3 pg 25.9-32.8 785-6) MCHC (test code = 33.2 g/dL 31.6-35.1 786-4) RDW-SD (test code = 46.0 fL 39.0-49.9 29636-6) RDW-CV (test code = 13.6 % 12.0-15.5 788-0) PLT (test code = See_Comment [Automated 777-3) message] The system which generated this result transmitted reference range : 166 - 358 10*3/?L. The reference range was not used to interpret this result as normal/abnormal . MPV (test code = 8.9 fL 9.5-12.9 L 23549-4) NRBC/100 WBC (test See_Comment [Automat ed code = 9615686867) message] The system which generated this result transmitted reference range : 0.0 - 10.0 /100 WBCs. The reference range was not used to interpret this result as normal/abnormal . NRBC x10^3 (test code <0.01 See_Comment [Auto mated = 1970496873) message] The system which generated this result transmitted reference range : 10*3/?L. The reference range was not used to interpret this result as normal/abnormal . GRAN MAT (NEUT) % 83.5 % (test code = 770-8) IMM GRAN % (test code 5.10 % = 4985175347) LYMPH % (test code = 6.3 % 736-9) MONO % (test code = 4.5 % 5905-5) EOS % (test code = 0.1 % 713-8) BASO % (test code = 0.5 % 706-2) GRAN MAT x10^3(ANC) 22.80 10*3/uL 1.88-7.09 H (test code = 1714327138) IMM GRAN x10^3 (test 1.40 10*3/uL 0.00-0.06 H code = 7275121702) LYMPH x10^3 (test 1.72 10*3/uL 1.32-3.29 code = 731-0) MONO x10^3 (test code 1.24 10*3/uL 0.33-0.92 H = 742-7) EOS x10^3 (test code 0.04 10*3/uL 0.03-0.39 = 711-2) BASO x10^3 (test code 0.13 10*3/uL 0.01-0.07 H = 704-7) BANDS (test code = MARKED INCREASED A 7907307482) TOXIC CHANGES (test Present A code = 803-7) Lab Interpretation Abnormal (test code = 88029-3) [facility]. METABOLIC PANEL ([id number])2021-06-22 12:17:52 Test Item Value Reference Range Interpretation Comments NA (test code = 134 mmol/L 135-145 L 3465762514) K (test code = 4.0 mmol/L 3.5-5.0 8414214107) CL (test code = 108 mmol/L 98-108 7256993720) CO2 TOTAL (test code = 21 mmol/L 23-31 L 4648941268) AGAP (test code = 2-16 4499252687) BUN (test code = 11 mg/dL 7-23 0221796111) GLUCOSE (test code = 160 mg/dL 70-110 H 6491059181) CREATININE (test code = 0.61 mg/dL 0.50-1.04 8380369763) TOTAL BILI (test code = 0.3 mg/dL 0.1-1.4 1139146785) CALCIUM (test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
--- NOTE | 2021-07-09 18:20 | EDPHYS ---
Physician Documentation [facility] Name: Gabrielle Levine Age: 46 yrs Sex: Female : 1975 Arrival Date: 07/09/2021 Time: 17:16 Bed 13 Private MD: ED Physician Godwin Riley HPI: 07/09 18:18 This 46 yrs old Female presents to ER via Unassigned with complaints of Esophageal tear ma2 per Dr Boaz. 18:18 The patient presents with abdominal pain. Onset: The symptoms/episode began/occurred ma2 gradually, 2 day(s) ago. Associated signs and symptoms: Pertinent negatives: blood in stools, diarrhea, vaginal discharge, vomiting. Severity of pain: At its worst the pain was mild in the emergency department the pain is unchanged. The patient has not experienced similar symptoms in the past. [employer]: 18:32 LMP N/A - Hysterectomy vg1 Historical: - Allergies: 18:32 Azithromycin; vg1 18:32 Cephalexin Monohydrate; vg1 18:32 Erythromycin; vg1 18:32 metformin; vg1 18:32 Methocarbamol; vg1 18:32 phenytoin sodium; vg1 18:32 phenytoin sodium extended; vg1 - Home Meds: 18:32 Biktarvy Oral [Active]; clozapine Oral [Active]; Doxycycline Oral [Active]; Hydroxyzine vg1 Oral [Active]; ozempic [Active]; Vitamin Oral [Active]; Prilosec Oral [Active]; Topamax Oral [Active]; - PMHx: 18:32 Anxiety; HIV positive; Irritable bowel syndrome; Migraines; PTSD; vg1 - PSHx: 18:32 hysterectomy; vg1 - Immunization history:: Client reports receiving the 2nd dose of the Covid vaccine. - Social history:: Patient/guardian denies using alcohol, street drugs, The patient lives with family, Smoking status: Patient denies any tobacco usage or history of. - Family history:: not pertinent. ROS: 18:18 Constitutional: Negative for fever, chills, and weight loss. ma2 18:18 All other systems are negative. Exam: 18:18 Constitutional: This is a well developed, well nourished patient who is awake, alert, ma2 and in no acute distress. ENT: Nares patent. No nasal discharge, no septal abnormalities noted. Tympanic membranes are normal and external auditory canals are clear. Oropharynx with no redness, swelling, or masses, exudates, or evidence of obstruction, uvula midline. Mucous membranes moist. Neck: Trachea midline, no thyromegaly or masses palpated, and no cervical lymphadenopathy. Supple, full range of motion without nuchal rigidity, or vertebral point tenderness. No Meningismus. Chest/axilla: Normal chest wall appearance and motion. Nontender with no deformity. No lesions are appreciated. Cardiovascular: Regular rate and rhythm with a normal S1 and S2. No gallops, murmurs, or rubs. Normal PMI, no JVD. No pulse deficits. Respiratory: Lungs have equal breath sounds bilaterally, clear to auscultation and percussion. No rales, rhonchi or wheezes noted. No increased work of breathing, no retractions or nasal flaring. Abdomen/GI: Soft, non-tender, with normal bowel sounds. No distension or tympany. No guarding or rebound. No evidence of tenderness throughout. Skin: Warm, dry with normal turgor. Normal color with no rashes, no lesions, and no evidence of cellulitis. MS/ Extremity: Pulses equal, no cyanosis. Neurovascular intact. Full, normal range of motion. Neuro: Awake and alert, GCS 15, oriented to person, place, time, and situation. Cranial nerves II-XII grossly intact. Motor strength 5/5 in all extremities. Sensory grossly intact. Cerebellar exam normal. Normal gait. Vital Signs: 18:24 BP 132 / 92; Pulse 98; Resp 16; Temp 98.4; Pulse Ox 99% ; Weight 115.67 kg; Height 5 vg1 ft. 6 in. (167.64 cm); Pain 0/10; 20:05 BP 135 / 86; Pulse 90; Resp 18; Pulse Ox 99% on R/A; ic1 18:24 Body Mass Index 41.16 (115.67 kg, 167.64 cm) vg1 MDM: 18:18 Differential diagnosis: gastritis, Irritable bowel syndrome, non-specific abd pain, ma2 pancreatitis. Data reviewed: vital signs, nurses notes. Counseling: I had a detailed discussion with the patient and/or guardian regarding: the historical points, exam findings, and any diagnostic results supporting the discharge/admit diagnosis, the presence of at least one elevated blood pressure reading (>120/80) during this emergency department visit, the need for outpatient follow up. Response to treatment: the patient's symptoms have markedly improved after treatment. ED course: Discussed with Dr. Hill,. 18:20 Patient medically screened. ma2 18:22 ED course: I discussed with Dr. Leon, and he advised that patient need evaluation and ma2 he is available to see her if needed.. 07/09 18:18 Order name: Basic Metabolic Panel ma2 07/09 18:18 Order name: CBC with Diff ma2 07/09 18:18 Order name: Hepatic Function ma2 07/09 18:18 Order name: Lipase ma2 07/09 18:22 Order name: SARS-COV-2 RT PCR (Document "Date of Onset" if Symptomatic) ma2 07/09 22:40 Order name: Type and Screen EDMS 07/10 05:17 Order name: CBC with Automated Diff EDMS 07/10 05:37 Order name: Comprehensive Metabolic Panel EDMS 07/10 05:37 Order name: Thyroid Stimulating Hormone EDMS 07/09 18:18 Order name: IV Saline Lock; Complete Time: 20:05 ma2 07/09 18:18 Order name: Labs collected and sent; Complete Time: 20:05 ma2 Administered Medications: 18:40 CANCELLED (n/aa): Zofran (Ondansetron) 4 mg IVP once; over 2 minutes ma2 18:40 CANCELLED (n/aa): Pepcid (famotidine) 20 mg IVP once; dilute with 10 mL 0.9% NaCl; give ma2 over 2 minutes 18:41 CANCELLED (n/aa): NS 0.9% 1000 ml IV at 1 bolus Per protocol; 1000 mL bolus ma2 Disposition Summary: 07/09/21 18:20 Hospitalization Ordered Hospitalization Status: Observation ma2 Provider: Sharif Hill Condition: Stable ma2 Problem: new ma2 Symptoms: are unchanged ma2 Bed/Room Type: Standard ma2 Location: Telemetry/MedSurg (observation)(07/10/21 15:30) eb Room Assignment: 217(07/10/21 15:30) eb Diagnosis - Upper abdominal pain, unspecified ma2 Forms: - Medication Reconciliation Form ma2 - SBAR form [facility] Signatures: Dispatcher [employer] Karen Helms, RAQUEL RN cg Godwin Riley MD MD [facility] Majo Walker Victoria, RN RN vg1 Corrections: (The following items were deleted from the chart) 18:40 18:18 Zofran (Ondansetron) 4 mg IVP once; over 2 minutes ordered. [place] [address] 18:40 18:20 Pepcid (famotidine) 20 mg IVP once; dilute with 10 mL 0.9% NaCl; give over 2 ma2 minutes ordered. [facility] 18:41 18:20 NS 0.9% 1000 ml IV at 1 bolus Per protocol; 1000 mL bolus ordered. [place] [address] 22:59 18:20 Telemetry/MedSurg (observation) [facility] [place] 18:20 [facility] [place] 07/10 15:30 07/09 22:59 [facility] ER [facility] 07/10 15:30 07/09 22:59 [facility] [facility] [place]
[2021-07-09] MEDS ORDERED: SODIUM CHLORIDE 0.9% 10ML INJ IV PRN (19:30)
[2021-07-09] MEDS ORDERED: clonazePAM 1 MG TAB PO PRN (19:31)
--- NOTE | 2021-07-09 19:45 | P.HP ---
Certification for Inpatient Patient admitted to: Inpatient With expected LOS: >2 Midnights Patient will require the following post-hospital care: None Practitioner: I am a practitioner with admitting privileges, knowledge of patient current condition, hospital course, and medical plan of care. Services: Services provided to patient in accordance with Admission requirements found in Title 42 Section 412.3 of the Code of Federal Regulations Patient History Date of Service: 07/09/21 Primary Care Provider: Gustavo Reason for admission: Usha elise History of Present Illness: Patient of Mrs Phoebe Chen. She has a history of HIV, diabetes and anxiety. In Early Jun the patient experienced a spreading rash. Was sent to the [facility] burn unit on 06/19. Diagnoised with Jason Jorge syndrome. Most likely due to her recent addition of Welbutrin. The patient was discharged. Seen in the office last week for suture removal. She has been having nausea and vomiting over the weekend. She has been having dysphagia after that and has only been able to tolerate soft foods. Mrs Chen referred the patient to Dr. Napier. He Called the patient and recommended she come to the Er. Considering her recent SJ syndrome fear of a tear was paramount. she did have several ulcerations in her mouth and throat. Allergies azithromycin Allergy (Unverified 10/17/14 20:40) Unknown cephalexin monohydrate [From Keflex] Allergy (Unverified 10/17/14 20:40) Unknown methocarbamol [From Robaxin] Allergy (Unverified 06/15/15 15:45) Unknown phenytoin sodium [From Dilantin] Allergy (Unverified 10/17/14 20:40) Unknown phenytoin sodium extended [From Dilantin] Allergy (Unverified 10/17/14 20:40) Unknown Review of Systems 10-point ROS is otherwise unremarkable Gastrointestinal: Nausea, Vomiting, Other (dysphagia) Physical Examination - Physical Exam General: Alert, In no apparent distress HEENT: Atraumatic, PERRLA, Mucous membr. moist/pink, EOMI, Sclerae nonicteric Neck: Supple, 2+ carotid pulse no bruit, No LAD, Without JVD or thyroid abnormality Respiratory: Clear to auscultation bilaterally, Normal air movement Cardiovascular: Regular rate/rhythm, Normal S1 S2 Gastrointestinal: Normal bowel sounds, No tenderness Musculoskeletal: No tenderness Integumentary: No rashes Neurological: Normal gait, Normal speech, Normal strength at 5/5 x4 extr, Normal tone, Normal affect Lymphatics: No axilla or inguinal lymphadenopathy Assessment and Plan - Problems (Diagnosis) (1) Usha-Elise syndrome Current Visit: Yes Status: Acute Plan: will start the patient on iv protonix. Consult Dr. Napier. Will monitor her hct. Keep her npo at this time. (2) HIV (human immunodeficiency virus infection) Current Visit: Yes Status: Chronic Plan: she is well controlled on viktarvy. will have her take her home medications. Will check a cd4 and viral load on the patient,. (3) Anxiety Current Visit: Yes Status: Acute Plan: continue her home klonopine. Discharge Plan: Home Plan to discharge in: 48 Hours - Advance Directives Does patient have a Living Will: No Does patient have a Durable POA for Healthcare: No - Code Status/Comfort Care Code Status Assessed: No Code Status: Full Code Physician Review: Patient Assessed, Agree with Above Assessment and Plan Critical Care: No Time Spent Managing Pts Care (In Minutes): 70
[2021-07-09 20:16] LABS: Absolute Lymphocytes (CBC) 3.2 K/uL (0.7-4.9); Hematocrit 40.9 % (36.0-45.0); Lymphocytes % 31.5 % (15.3-44.8)
[2021-07-09 21:23] LABS: BUN Blood Urea Nitrogen 10 mg/dL (7-18); Bicarbonate 22 mmol/L (21-32); Glucose Level 113 mg/dL (74-106); Potassium 3.7 mmol/L (3.5-5.1); Sodium Level 136 mmol/L (136-145)
[2021-07-09 21:38] LABS: ALT/SGPT 30 U/L (12-78); AST/SGOT 13 U/L (15-37); Albumin 3.5 g/dL (3.4-5.0); Alkaline Phosphatase 55 U/L (45-117); Bilirubin Direct 0.1 mg/dL (0-0.2); Bilirubin Total 0.5 mg/dL (0.2-1.0); Lipase 197 U/L (73-393); Protein, Total 8.1 g/dL (6.4-8.2)
[2021-07-10 02:53] VITALS: BMI 41.1
[2021-07-10 05:03] LABS: Absolute Lymphocytes (CBC) 2.6 K/uL (0.7-4.9); Hematocrit 38.4 % (36.0-45.0); Lymphocytes % 32.2 % (15.3-44.8); MPV 6.2 fL (7.6-11.3); RBC Red Blood Cell Count 4.15 M/uL (3.86-4.86)
[2021-07-10 05:37] LABS: ALT/SGPT 27 U/L (12-78); AST/SGOT 10 U/L (15-37); Alkaline Phosphatase 51 U/L (45-117); BUN Blood Urea Nitrogen 9 mg/dL (7-18); Bicarbonate 23 mmol/L (21-32); Bilirubin Total 0.7 mg/dL (0.2-1.0); Glucose Level 102 mg/dL (74-106); Potassium 3.8 mmol/L (3.5-5.1); Protein, Total 7.2 g/dL (6.4-8.2); Sodium Level 137 mmol/L (136-145)
[2021-07-10] MEDS ORDERED: PANTOPRAZOLE 40 MG INJ ONE (08:06)
--- NOTE | 2021-07-10 08:09 | P.PN ---
Subjective Date of Service: 07/10/21 Primary Care Provider: Gustavo Chief Complaint: Usha elise Subjective: No new changes Review of Systems 10-point ROS is otherwise unremarkable Physical Examination - Vital Signs Blood Pressure: 109/82 Pulse: 79 Respirations: 18 Pulse Ox (%): 94 - Physical Exam General: Alert, In no apparent distress HEENT: Atraumatic, PERRLA, EOMI Neck: Supple, JVD not distended Respiratory: Clear to auscultation bilaterally, Normal air movement Cardiovascular: Regular rate/rhythm, Normal S1 S2 Gastrointestinal: Normal bowel sounds, No tenderness Musculoskeletal: No tenderness Integumentary: No rashes Neurological: Normal speech, Normal tone, Normal affect Lymphatics: No axilla or inguinal lymphadenopathy Assessment & Plan - Problems (Diagnosis) (1) Usha-Elise syndrome Current Visit: Yes Status: Acute Plan: will start the patient on iv protonix. Consult Dr. Napier. Will monitor her hct. Keep her npo at this time. 07/10 pt stable. Will discuss with Dr. Napier if she can be scoped (2) HIV (human immunodeficiency virus infection) Current Visit: Yes Status: Chronic Plan: she is well controlled on viktarvy. will have her take her home medications. Will check a cd4 and viral load on the patient,. (3) Anxiety Current Visit: Yes Status: Acute Plan: continue her home klonopine. Discharge Plan: Home Plan to discharge in: 24 Hours - Code Status/Comfort Care Code Status Assessed: No Physician Review: Patient Assessed, Agree with Above Assessment and Plan Critical Care: No Time Spent Managing Pts Care (In Minutes): 25
[2021-07-10] MEDS ORDERED: PANTOPRAZOLE 40 MG INJ IVP SCH (09:00)
[2021-07-10] MEDS ORDERED: Ringers Lactate 1,000 ML IV ONE (13:24)
[2021-07-10] MEDS ORDERED: SUMATRIPTAN SUCC 6MG/0.5ML VIAL SQ ONE (13:58)
[2021-07-10] MEDS ORDERED: ACETAMIN/CAFFEINE/BUTALB TAB PO PRN (13:59)
[2021-07-10] MEDS ORDERED: LIDOCAINE 1% MPF 5 ML VIAL ONE (13:59)
[2021-07-10] MEDS ORDERED: propofoL 200 MG/20 ML VIAL IV ONE (13:59)
[2021-07-10 14:43] VITALS: O2SAT 94
--- NOTE | 2021-07-10 14:51 | ENDO RPT ---
[address], [address] EGD WITH DILATION PROCEDURE REPORT EXAM DATE: 07/10/2021 PATIENT NAME: Gabrielle Levine MR#: [id number] BIRTHDATE: 1975 ATTENDING: James Sandra Dr STATUS: inpatient - 7 ATTENDING RADIOLOGIST: Quin FELIZ, Jewels Ramírez, and Delicia Chance RN INDICATIONS: The patient is a 46 yr old Female here for an EGD with dilation due to dysphagia, nausea and vomiting, GERD, and mid epigastric abdominal pain PROCEDURE PERFORMED: EGD with biopsy and EGD with dilatation over guidewire MEDICATIONS: Per Anesthesia. TOPICAL ANESTHETIC: none CONSENT: The patient understands the risks and benefits of the procedure and understands that these risks include, but are not limited to: sedation, allergic reaction, infection, perforation and/or bleeding. Alternative means of evaluation and treatment include, among others: physical exam, x-rays, and/or surgical intervention. The patient elects to proceed with this endoscopic procedure. DESCRIPTION OF PROCEDURE: During intra-op preparation period all mechanical medical equipment was checked for proper function. Hand hygiene and appropriate measures for infection prevention was taken. After the risks, benefits and alternatives of the procedure were thoroughly explained, Informed consent was verified, confirmed and timeout was successfully executed by the treatment team. The patient was anesthetized with topical anesthesia and the [id number] ([id number]) endoscope was introduced through the mouth and advanced to the third portion of the duodenum. The instrument was slowly withdrawn as the mucosa was fully examined. LA class C esophagitis was found in the lower esophagus. A small hiatal hernia was found Moderate gastritis was found in the antrum. Multiple biopsies were obtained and sent to pathology. Dilation was performed at lower esophagus. DILATOR: SIZE(S): RESISTANCE: HEME: APPEARANCE: Dilator: Savary over guidewire Size(s): 14 mm Resistance: minimal Heme: none Appearance: adequate esophagitis Retroflexed views revealed a small hiatal hernia. ADVERSE EVENTS: There were no complications. IMPRESSIONS: 1. Non-obstructive dysphagia, s/p 14 mm Savary dilatation subsequent biopsies to rule out eosinophilic esophagitis 2. LA Class C esophagitis in the lower esophagus 3. A small hiatal hernia 4. Moderate gastritis in the antrum, s/p biopsies RECOMMENDATIONS: 1. await biopsy results 2. acid suppression therapy 3. anti-reflux regimen REPEAT EXAM: James Sandra Dr eSigned: James Sandra Dr 07/10/2021 2:51 PM cc: Sharif Hill CPT CODES: ICD9 CODES: PATIENT NAME: Gabrielle Levine MR#: [id number]
[2021-07-10 16:05] VITALS: BP 99/54; TEMP 98.2
--- NOTE | 2021-07-10 16:53 | ER ---
Nurse's Notes [facility] Name: Gabrielle Levine Age: 46 yrs Sex: Female : 1975 Arrival Date: 07/09/2021 Time: 17:16 Bed 13 Private MD: Diagnosis: Upper abdominal pain, unspecified Presentation: 07/09 18:24 Chief complaint: Patient states: 'vomiting six hours straight on '. Was vg1 seen at [facility] on Jul 04, 2021 and was dx stomach virus. Since then, states is unable to tolerate food and fluids. Was trying to get an appointment with Dr Sandra and was told to come to the ED. Also, [facility] DR Hill stated for her to be admitted . Coronavirus screen: Vaccine status: Patient reports receiving the 2nd dose of the covid vaccine. Client denies travel out of the [place] in the last 14 days. Ebola Screen: Patient negative for fever greater than or equal to 101.5 degrees Fahrenheit, and additional compatible Ebola Virus Disease symptoms. Initial Sepsis Screen: Does the patient meet any 2 criteria? No. Patient's initial sepsis screen is negative. Does the patient have a suspected source of infection? No. Patient's initial sepsis screen is negative. Risk Assessment: Do you want to hurt yourself or someone else? Patient reports no desire to harm self or others. Onset of symptoms was July 04, 2021. 18:24 Method Of Arrival: Ambulatory vg1 18:24 Acuity: PAZ 3 vg1 Triage Assessment: 18:32 General: Appears in no apparent distress. comfortable, Behavior is calm, cooperative. vg1 Pain: Complains of pain in throat. 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 N/A - Hysterectomy vg1 Historical: - Allergies: 18:32 Azithromycin; vg1 18:32 Cephalexin Monohydrate; vg1 18:32 Erythromycin; vg1 18:32 metformin; vg1 18:32 Methocarbamol; vg1 18:32 phenytoin sodium; vg1 18:32 phenytoin sodium extended; vg1 - Home Meds: 18:32 Biktarvy Oral [Active]; clozapine Oral [Active]; Doxycycline Oral [Active]; Hydroxyzine vg1 Oral [Active]; ozempic [Active]; Vitamin Oral [Active]; Prilosec Oral [Active]; Topamax Oral [Active]; - PMHx: 18:32 Anxiety; HIV positive; Irritable bowel syndrome; Migraines; PTSD; vg1 - PSHx: 18:32 hysterectomy; vg1 - Immunization history:: Client reports receiving the 2nd dose of the Covid vaccine. - Social history:: Patient/guardian denies using alcohol, street drugs, The patient lives with family, Smoking status: Patient denies any tobacco usage or history of. - Family history:: not pertinent. Screenin:07 Abuse screen: Denies threats or abuse. Denies injuries from another. Nutritional ic1 screening: No deficits noted. Tuberculosis screening: No symptoms or risk factors identified. Fall Risk None identified. Assessment: 20:05 General: Appears in no apparent distress. Behavior is calm, cooperative. Pain: ic1 Complains of pain in abdomen. Neuro: No deficits noted. Cardiovascular: No deficits noted. Respiratory: No deficits noted. GI: Reports lower abdominal pain, upper abdominal pain, intolerance of food, nausea. : No deficits noted. EENT: No deficits noted. Derm: No deficits noted. Musculoskeletal: No deficits noted. 22:27 Reassessment: See [facility] for further charting. ic1 Vital Signs: 18:24 BP 132 / 92; Pulse 98; Resp 16; Temp 98.4; Pulse Ox 99% ; Weight 115.67 kg; Height 5 vg1 ft. 6 in. (167.64 cm); Pain 0/10; 20:05 BP 135 / 86; Pulse 90; Resp 18; Pulse Ox 99% on R/A; ic1 18:24 Body Mass Index 41.16 (115.67 kg, 167.64 cm) vg1 ED Course: 17:16 Patient arrived in ED. mr 18:17 Godwin Riley MD is Attending Physician. ma2 18:19 Sharif Hill MD is Hospitalizing Provider. nm2 18:32 Triage completed. vg1 18:32 Arm band placed on. vg1 20:05 SARS-COV-2 RT PCR (Document "Date of Onset" if Symptomatic) Sent. ic1 20:05 Basic Metabolic Panel Sent. ic1 20:05 CBC with Diff Sent. ic1 20:05 Hepatic Function Sent. ic1 20:05 Lipase Sent. ic1 20:07 Patient has correct armband on for positive identification. Placed in gown. Bed in low ic1 position. Call light in reach. Side rails up X2. 20:07 Inserted saline lock: 20 gauge in left antecubital area, using aseptic technique. ic1 07/10 07:27 Apolonia Qiu, RN is Primary Nurse. eo2 16:21 Report given to Lesli GARCÍA, all documentation for today's shift done in [facility]. eo2 16:50 No provider procedures requiring assistance completed. Patient admitted, IV remains in eo2 place. Administered Medications: 07/09 18:40 CANCELLED (n/aa): Zofran (Ondansetron) 4 mg IVP once; over 2 minutes ma2 18:40 CANCELLED (n/aa): Pepcid (famotidine) 20 mg IVP once; dilute with 10 mL 0.9% NaCl; give ma2 over 2 minutes 18:41 CANCELLED (n/aa): NS 0.9% 1000 ml IV at 1 bolus Per protocol; 1000 mL bolus ma2 Outcome: 18:20 Decision to Hospitalize by Provider. ma2 07/10 16:50 Admitted to Med/surg accompanied by tech, via stretcher. eo2 Condition: stable Instructed on the need for admit. 16:53 Patient left the ED. eb Signatures: Kayla Padilla Mohammad, MD MD ma2 Majo Walker Victoria RN RN vg1 Apolonia Qiu, RAQUEL RN eo2 Mellissa Wylie RN RN ic1
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
== END 2021-07-10 19:25 | disposition home or self-care (01) ==
LOC: ER 17:13 → SUPCPDRO 17:13 → ERHOLD 18:29 → 2ND 07-10 16:29
PROVIDERS: ADMIT Internal Medicine; ATTEND Internal Medicine
PROC: 0DB38ZX Excision of Lower Esophagus, Via Natural or Artificial Opening Endoscopic, Diagnostic (ICD-10-PCS; 2021-07-10)
PROC: 0DB68ZX Excision of Stomach, Via Natural or Artificial Opening Endoscopic, Diagnostic (ICD-10-PCS; 2021-07-10)
PROC: 0D738ZZ Dilation of Lower Esophagus, Via Natural or Artificial Opening Endoscopic (ICD-10-PCS; principal; 2021-07-10 14:00)
DX: K22.6 Gastro-esophageal laceration-hemorrhage syndrome (principal); R13.10 Dysphagia, unspecified; K29.50 Unspecified chronic gastritis without bleeding; B96.81 Helicobacter pylori [H. pylori] as the cause of diseases classified elsewhere; K21.00 Gastro-esophageal reflux disease with esophagitis, without bleeding; K44.9 Diaphragmatic hernia without obstruction or gangrene; L51.1 Stevens-Johnson syndrome; B20 Human immunodeficiency virus [HIV] disease; F41.9 Anxiety disorder, unspecified; K58.9 Irritable bowel syndrome, unspecified; E11.9 Type 2 diabetes mellitus without complications; F43.10 Post-traumatic stress disorder, unspecified; E66.01 Morbid (severe) obesity due to excess calories; Z68.41 Body mass index [BMI] 40.0-44.9, adult; Z20.822 Contact with and (suspected) exposure to COVID-19; Z88.1 Allergy status to other antibiotic agents; Z88.3 Allergy status to other anti-infective agents; Z90.49 Acquired absence of other specified parts of digestive tract; Z90.710 Acquired absence of both cervix and uterus; Z80.0 Family history of malignant neoplasm of digestive organs; Z82.49 Family history of ischemic heart disease and other diseases of the circulatory system; Z80.42 Family history of malignant neoplasm of prostate
CPT/HCPCS: 43248; 43239; 85025 ×2; 80048; 36415; 86900; 86850; 88312; 86901; 80076; 88305; 84443; 83690; 80053; 99285; U0003; J2704; C9113; J7120; G0378 ×3

== ENCOUNTER 2021-10-12 10:57 | Emergency (ER) | payer BC ==
--- OUTSIDE RECORDS SUMMARY | 2021-10-12 11:08 | XMS REPORT | Continuity of Care Document ---
:1975 Author Organization [facility] t Address [address] [place] [address] Dr. [address]. [address] [place] [address] Care Team Providers Name Role Phone Pcp, Does Not Have A Primary Care Physician Alvaro Olson MD, F Attending Clinician Doctor Unassigned, Name Attending Clinician Unavailable Roni GARCÍA, L Attending Clinician Unavailable GILBERTO Attending Clinician Unavailable Gilberto MANRIQUE Attending Clinician Noemi MANRIQUE C Attending Clinician Singer TOLENTINO Attending Clinician Attending Clinician Unavailable Aguilar Huynh Attending Clinician Unavailable Aguilar Huynh Attending Clinician Unavailable GILBERTO Admitting Clinician Unavailable Gilberto MANRIQUE Admitting Clinician Aguilar Huynh Admitting Clinician Unavailable Payers Payer Name Policy Type Policy Number Effective Date Expiration Date S ource Problems Condition Condition Condition Status Onset Resolution Last Treating Co mments Source Name Details Category Date Date Treatment Clinician Date Rash Rash Disease Active 2020-07 Univers 2-17 ity of 00:00: [address] IBS IBS Disease Active 2020-07 Univers (irritable (irritable 2-17 it y of bowel bowel 00:00: [place] syndrome) syndrome) 00 [facility] Lactic Lactic Disease Active 2020-07 Univers acidemia acidemia 2-17 ity of 00:00: [address] Urinary Urinary Disease Active 2020-07 Univers tract tract 2-17 [place] [address] [place] [address] Sepsis Sepsis Disease Active 2020-07 Univers 2-17 ity of 00:00: [address] HIV (human HIV (human Disease Active 2020-07 [...] DRUG Active Rash 2020-07 Univers N INGREDI 2 ity of 00:00: [place] 00 [facility] Bupropio Propensi Active Rash 2020-07 Suspected Uni vers n ty to 2 cause of ity of adverse 00:00: AGEP [...] Medical Branch Erythrom Propensi Active Shortness of 0 Univers ycin ty to Breath 08-05 ity of adverse 00:00: [place] reaction 00 Medical s Branch CEPHALEX DRUG Active N/V 0 Univers IN INGREDI - ity of 00:00: [place] 00 [facility] LATEX DRUG Active ITCHING 0 Univers INGREDI 08-05 ity of 00:00: [place] 00 [facility] CEFTRIAX DRUG Active N/V Univers ONE INGREDI 08-05 ity of SODIUM 00:00: [place] 00 Medical Branch Cephalex Propensi Active Nausea 0 Univer s in ty to and/or 08-05 ity of adverse Vomiting 00:00: [place] reaction 00 Medical s Branch Latex Propensi Active Itching Univers ty to 08-05 ity of adverse 00:00: [place] reaction 00 Medical s Branch Ceftriax Propensi Active Nausea 0 Univer s one ty to and/or 08-05 ity of Sodium adverse Vomiting 00:00: [place] reaction 00 Medical s Branch Pepcid Drug Active [facility] Dilantin Drug Active [facility] antihist Drug Active [facility] Pepcid Drug Active [facility] Dilantin Drug Active [facility] antihist Drug Active [facility] Pepcid Drug Active [facility] Dilantin Drug Active [facility] antihist Drug Active [facility] Pepcid Drug Active [facility] Dilantin Drug Active [facility] antihist Drug Active [facility] antihist Drug Active [facility] Pepcid Drug Active [facility] Dilantin Drug Active [facility] Social History Social Habit Start Date Stop Date Quantity Comments Source Exposure to Not sure [facility] SARS-CoV-2 [facility] (event) [place] Tobacco use and 2021-06-19 2021-06-19 Never used Universit y of exposure 00:00:00 00:00:00 [facility] [place] [facility] Alcohol intake 2021-06-19 2021-06-19 Current drinker Unive rsity of 00:00:00 00:00:00 of alcohol [facility] (finding) Branch Sex Ass[birth year] At [birth year] Universit y of 00:00:00 00:00:00 [facility] [place] [facility] Smoking Status Start Date Stop Date Source Never smoker [facility] Unknown if ever smoked [facility] Medications Ordered Filled Start Stop Current Ordering Indication Dosage Frequency Signature Comments Components Source Medication Medication Date Date Medication? Clinician (SIG) Name Name cetirizine 2020-07 Yes 20mg Take 20 mg U nivers (ZYRTEC) 10 2-24 by mouth ity of mg tablet 10:18: daily. [address] omeprazole 2020-07 Yes 20mg Take 20 mg U nivers 20 mg 2-24 by mouth ity of capsule 10:18: daily. [address] cetirizine 2020-07 Yes 20mg Take 20 mg U nivers (ZYRTEC) 10 2-24 by mouth ity of mg tablet 10:18: daily. [address] omeprazole 2020-07 Yes 20mg Take 20 mg U nivers 20 mg 2-24 by mouth ity of capsule 10:18: daily. [address] cetirizine 2020-07 Yes 20mg Take 20 mg U nivers (ZYRTEC) 10 2-24 by mouth ity of mg tablet 10:18: daily. [address] omeprazole 2020-07 Yes 20mg Take 20 mg U nivers 20 mg 2-24 by mouth ity of capsule 10:18: daily. [address] cetirizine 2020-07 Yes 20mg Take 20 mg U nivers (ZYRTEC) 10 2-24 by mouth ity of mg tablet 10:18: daily. [address] omeprazole 2020-07 Yes 20mg Take 20 mg U nivers 20 mg 2-24 by mouth ity of capsule 10:18: daily. [address] triamcinolo 2020-07 Yes [id number] Apply to Univers ne 2-24 area(s) 2 ity of acetonide 00:00: (two) [place] 0.1 % cream 00 times Medical daily. Branch triamcinolo 2020-07 Yes [id number] Apply to Univers ne 2-24 area(s) 2 ity of acetonide 00:00: (two) [place] 0.1 % cream 00 times Medical daily. Branch triamcinolo 2020-07 Yes [id number] Apply to Univers ne 2-24 area(s) 2 ity of acetonide 00:00: (two) [place] 0.1 % cream 00 times Medical daily. Branch triamcinolo 2020-07 Yes [id number] Apply to Univers ne 2-24 area(s) 2 ity of acetonide 00:00: (two) [place] 0.1 % cream 00 times Medical daily. Branch furosemide 2020-07- No 20mg 20 mg, Univ ers (LASIX) 08-27 Slow IV ity of injection 00:00: 23:59 [place], Q6H, [place] 20 mg 00 :00 4 doses, Medical First dose Branch (after last reorder) on Tue06/25/21 at 1800, Last dose on Tue06/26/21 at 1200, Routine furosemide 2020-07 No 20mg 20 mg, Univ ers (LASIX) [...] 0943, Until Discontinu ed, Routine, Itching hydrOXYzine 2020-07 No 10mg 10 mg, Uni vers (ATARAX) -06-23 Oral, ity of tablet 10 20:30: 15:43 Q6HPRN, [place] mg 18 :21 Starting Medical on Tue Branch 06/22/21 at 1430, Until Tue06/23/21 at 0943, Routine, Itching triamcinolo 2020-07 Yes Topical, Un kelly ne 08-22 BID, First ity of acetonide 02:00: dose on [place] (TRIDERM) 00 Sat Medical 0.1 % cream [...] diuretic therapy alone has failed ca 2020-07- No 1{packe 1 Packet, Univ ers acetate-alu 2-18 12-25 t} Topical, ity of m sulfate 17:45: 13:59 TID, 21 [place] (DOMEBORO) 00 :00 doses, Medical TOPICAL First dose Branch packet 1 on Sat Packet 06/20/21 at 1145, Last dose on Tue06/26/21 at 2000, Routine bictegrav-e 2020-07 Yes 1{tbl} 1 tablet, Univers mtricit-ten 2-18 Oral, ity of ofov ala 15:00: DAILY, [place] (BIKTARVY) 00 First dose Med ical 50-200-25 on Sat Branch mg tablet 1 06/20/21 tablet at 0900, Until Discontinu ed, Routine multivitami 2020-07 Yes 1{tbl} 1 tablet, Univers n tablet 1 2-18 Oral, ity of tablet 15:00: DAILY, [place] 00 First dose Medical on Sat Branch 06/20/21 at 0900, Until Discontinu ed, Routine lactated 2020-07- No 1000mL at 150 Univ ers ringers IV 2-18 12-20 mL/hr, ity [...] substantia l amounts of crystalloi ds. lactated 2020-07 No 500mL at 999 Unive rs ringers [...] 2020-07 Yes 220mg 220 mg, Univers sulfate 18 Oral, TID, ity of (ORAZINC) 02:00: First [...] Yes 15mL 15 mL, Univ ers ne -18 Oral ity of (PERIDEX) 02:00: (Swish And [...] dose, On Medic al (8 %) IV Fri Branch Piggyback 4 06/19/21 g at 1830, Routine Sliding 2020-07 Yes Subcutaneo [facility] ers Scale 2-18 us, Q6H, ity of Insulin-Reg 00:00: First dose [place] ular + Fsbg 00 on Tue Medica l Testing 06/19/21 Branch at 1800, Until Discontinu ed, Routine enoxaparin 2020-07 Yes 40mg 40 mg, Unive rs (LOVENOX) 2-17 Subcutaneo ity of injection 23:00: [place]ILY[place] 40 mg 00 First dose Medical on Tue Branch 06/19/21 at 1700, Until Discontinu ed, Routine ceFEPIme 2020-07- No 2000mg 2,000 mg, U nivers (MAXIPIME) -23 IV ity of 2,000 mg in 23:00: 17:37 Piggyback, [place] NaCl 0.9% 00 :00 Q12H ABX, Medic al (NS) 100 mL First dose Br anch MINI-BAG on Tue06/19/21 at 1700, Until Discontinu ed, Administer over 30 Minutes, 100 mL
Reas on for Anti-Infec tive: Empiric Therapy for Suspected Infection& lt;br>Empi kevin Therapy Site: Other
O ther site: skin/soft tissue, urinary tract infection& lt;br>Dura tion of therapy: 7 days lactated 2020-07- No 1000mL at 999 [facility] ers ringers IV 2-17 12-17 mL/hr, ity of infusion 22:45: 22:52 1,000 mL, [place] 1,000 mL 00 :00 Intravenou Medic al s, ONCE, 1 Branch dose, On Tue06/19/21 at 1645, Routine FENTanyl PF 2020-07 Yes 50ug 50 mcg, Uni vers (SUBLIMAZE 2-17 Slow IV ity of (PF)) 21:49: Push, [place] injection 48 Q5MIN PRN, Medi merna 50 mcg 3 doses, Branch Starting on Tue06/19/21 at 1549, Until Discontinu ed, Routine, tube room ondansetron 2020-07 Yes 4mg 4 mg, Slow Univers (ZOFRAN 2-17 IV Push, ity of (PF)) 21:48: Q6HPRN, [place] injection 4 41 Starting Medi merna mg on Fri Branch 06/19/21 at 1548, Until Discontinu ed, Routine, Nausea and Vomiting (N/V) morpHINE 2020-07 Yes 2mg 2 mg, Slow Uni vers injection 2 08-20 IV Push, ity of mg 21:48: Q4HPRN, [place] 03 Starting Medical on Fri Branch 06/19/21 [...] 08-20 Oral, ity of (TYLENOL) 21:47: Q6HPRN, [place] tablet 650 51 Starting Medic al mg on Tue Branch 06/19/21 at 1547, Until Discontinu ed, Routine, Pain (scale 1-3) vancomycin 2020-07- No 1000mg 1,000 mg, Univers (VANCOCIN) 08-20 IV ity of 1,000 mg in 21:45: 15:54 Piggyback, [place] NaCl 0.9% 00 :29 Q12H ABX, Medic [...] dose on 06/21/21 at 1545 D5W 0.45% 2021-1 2021- No IV Univers NaCl 2-17 12-18 Infusion, [...] mouth ity of mg tablet 15:46: daily. [address] Branch omeprazole 2020-07 Yes 20mg Take 20 mg U nivers 20 mg 2-17 by mouth ity of capsule 15:46: daily. [address] naproxen 2019-07 Yes [id number] 550mg Take 1 Un kelly sodium 1-18 tablet by ity of (ANAPROX 00:00: mouth 2 [place] DS) 550 mg 00 (two) Medical tablet times Branch daily with meals. methylPREDN 2019-07 Yes [id number] Take by Univers ISolone 1-18 mouth ity of (MEDROL, 00:00: SEE-INSTRU [place] JOY,) 4 mg 00 CTIONS. Medica l tablets follow Branch package directions naproxen 2019-07 Yes [id number] 550mg Take 1 Univers sodium 1-18 tablet by ity of (ANAPROX 00:00: mouth 2 [place] DS) 550 mg 00 (two) Medical tablet times Branch daily with meals. methylPREDN 2019-07 Yes [id number] Take by Univers ISolone 1-18 mouth ity of (MEDROL, 00:00: SEE-INSTRU [place] JOY,) 4 mg 00 CTIONS. Medica l tablets follow Branch package directions naproxen 2019-07 Yes [id number] 550mg Take 1 Univers sodium 1-18 tablet by ity of (ANAPROX 00:00: mouth 2 [place] DS) 550 mg 00 (two) Medical tablet times Branch daily with meals. methylPREDN 2019-07 Yes [id number] Take by Univers ISolone 1-18 mouth ity of (MEDROL, 00:00: SEE-INSTRU [place] JOY,) 4 mg 00 CTIONS. Medica l tablets follow Branch package directions naproxen 2019-07 Yes [id number] 550mg Take 1 Univers sodium 1-18 tablet by ity of (ANAPROX 00:00: mouth 2 [place] DS) 550 mg 00 (two) Medical tablet times Branch daily with meals. methylPREDN 2019-07 Yes [id number] Take by Univers ISolone 1-18 mouth ity of (MEDROL, 00:00: SEE-INSTRU [place] JOY,) 4 mg 00 CTIONS. Medica l tablets follow Branch package directions naproxen 2019-07 Yes [id number] 550mg Take 1 Univers sodium 1-18 tablet by ity of (ANAPROX 00:00: mouth 2 [place] DS) 550 mg 00 (two) Medical tablet times Branch daily with meals. methylPREDN 2019-07 Yes [id number] Take by Univers ISolone 1-18 mouth ity of (MEDROL, 00:00: SEE-INSTRU [place] JOY,) 4 mg 00 CTIONS. Medica l tablets follow Branch package directions naproxen 2019-07 Yes [id number] 550mg Take 1 Univers sodium 1-18 tablet by ity of (ANAPROX 00:00: mouth 2 [place] DS) 550 mg 00 (two) Medical tablet times Branch daily with meals. methylPREDN 2019-07 Yes [id number] Take by Univers ISolone 1-18 mouth ity of (MEDROL, 00:00: SEE-INSTRU [place] JOY,) 4 mg 00 CTIONS. Medica l tablets follow Branch package directions methocarbam 2019-07 2020- No [id number] 500mg Take 1 Univers oL 500 mg 1-18 11-24 tablet by ity of tablet 00:00: 05:59 mouth 3 [place] 00 :00 (three) Medical times Branch daily for 5 days. cetirizine 2017-0 Yes 20mg Take 20 mg U nivers (ZYRTEC) 10 2-27 by mouth ity of mg tablet 19:00: daily. [address] omeprazole 2017-0 Yes 20mg Take 20 mg U nivers 20 mg 2-27 by mouth ity of capsule 19:00: daily. [address] Branch clindamycin 2017-0 Yes 300mg Take 1 Uni vers 300 mg 2-27 capsule by ity of capsule 00:00: mouth [address] [place] [address] (four) Medical times Branch daily. clindamycin 2017-0 Yes 300mg Take 1 Uni vers 300 mg 2-27 capsule by ity of capsule 00:00: mouth 4 [place] (four) Medical times Branch daily. clindamycin 2017-0 Yes 300mg Take 1 Uni vers 300 mg 2-27 capsule by ity of capsule 00:00: mouth 4 [place] (four) Medical times Branch daily. clindamycin 2017-0 Yes 300mg Take 1 Uni vers 300 mg 2-27 capsule by ity of capsule 00:00: mouth 4 [place] (four) Medical times Branch daily. clindamycin 2017-0 Yes 300mg Take 1 Uni vers 300 mg 2-27 capsule by ity of capsule 00:00: mouth 4 [place] (four) Medical times Branch daily. clindamycin 2017-0 Yes 300mg Take 1 Uni vers 300 mg 2-27 capsule by ity of capsule 00:00: mouth 4 [place] [address] (four) Medical times Branch daily. clotrimazol 2016-0 Yes Apply to U nivers e-betametha 2-02 area(s) 2 ity of sone 00:00: (two) [place] (LOTRISONE) 00 times Medical cream daily. Branch Nitrofurant 2016-0 Yes 100mg Take 1 Cap Univers oin&Nit. 2-02 by mouth 2 ity o f Macrocryst 00:00: (two) [place] (MACROBID) 00 times Medical 100 mg daily. Branch capsule clotrimazol 2016-0 Yes Apply to U nivers e-betametha 2-02 area(s) 2 ity of sone 00:00: (two) [place] (LOTRISONE) 00 times Medical cream daily. Branch [...] 14:00:00 129 mm[Hg] Univer sity of pressure [facility] [place] [facility] Diastolic blood 2021-06-26 14:00:00 75 mm[Hg] Unive rsity of pressure [facility] [place] [facility] Heart rate 2021-06-26 14:00:00 82 /min Universi ty of [place] [facility] [place] Body temperature 2021-06-26 14:00:00 36.44 [place] Univ ersity of [facility] [place] [facility] Respiratory rate 2021-06-26 14:00:00 18 /min Univ ersity of [facility] [place] [facility] Oxygen saturation in 2021-06-26 14:00:00 95 /min University of Arterial blood by [place] [facility] Pulse oximetry Branch Body height 2021-06-22 17:00:00 167.6 cm Universi ty of [facility] [place] [facility] Body weight 2021-06-22 17:00:00 133.3 kg Universi ty of [facility] [place] [facility] BMI 2021-06-22 17:00:00 47.46 kg/m2 Universi ty of [place] [facility] Systolic blood 2020-05-21 15:10:00 154 mm[Hg] Univer sity of pressure [place] [facility] Diastolic blood 2020-05-21 15:10:00 97 mm[Hg] Unive rsity of pressure [facility] [place] [facility] Heart rate 2020-05-21 15:10:00 99 /min Universi ty of [place] [facility] [place] Body temperature 2020-05-21 15:10:00 36.44 [place] Univ ersity of [place] [facility] Respiratory rate 2020-05-21 15:10:00 18 /min Univ ersity of [place] [facility] [place] Body height 2020-05-21 15:10:00 167.6 cm Universi ty of [place] [facility] Body weight 2020-05-21 15:10:00 123.832 kg Universi ty of [place] [facility] BMI 2020-05-21 15:10:00 44.06 kg/m2 Universi ty of [facility] [place] [facility] Oxygen saturation in 2020-05-21 15:10:00 97 /min University of Arterial blood by [facility] Pulse oximetry Branch Procedures Procedure Date / Time Performing Clinician Source Performed EXTERNAL PROVIDER RECORDS 2021-07-14 06:01:00 Doctor Unassigned, [facility] PHOSPHORUS 2021-06-26 11:43:00 Oc Ramirez [facility] MAGNESIUM 2021-06-26 11:43:00 James [facility] BASIC METABOLIC PANEL (NA, 2021-06-26 11:43:00 James [facility] K, CL, CO2, GLUCOSE, BUN, Medica l Branch CREATININE, CA) CBC WITHOUT DIFF 2021-06-26 11:43:00 James [facility] POCT GLUCOSE (AUTOMATED) 2021-06-25 23:59:00 [facility] 2021-06-25 17:53:00 [facility] (AUTOMATED) 2021-06-25 06:12:00 [facility]SE (AUTOMATED) 2021-06-24 23:14:00 [facility] PO[facility]SE (AUTOMATED) 2021-06-24 17:52:00 Jason Baldwin [facility] [place] [facility] POCT GLUCOSE (AUTOMATED) 2021-06-24 11:59:00 Jason Baldwin [facility] [place] [facility] PHOSPHORUS 2021-06-24 10:51:00 [facility] 2021-06-24 10:51:00 [facility] BASIC METABOLIC PANEL (NA, 2021-06-24 10:51:00 [facility], CL, CO2, GLUCOSE, BUN, Medica l Branch CREATININE, CA) CBC WITHOUT DIFF 2021-06-24 10:51:00 [facility] 2021-06-24 06:15:00 [facility] PO[facility]SE (AUTOMATED) 2021-06-24 02:01:00 [facility] PO[facility]UCOSE (AUTOMATED) 2021-06-23 23:10:00 [facility] PO[facility]UCOSE (AUTOMATED) 2021-06-23 17:26:00 [facility] PO[facility]SE (AUTOMATED) 2021-06-23 11:32:00 Jason Baldwin [facility] [place] [facility] PHOSPHORUS 2021-06-23 10:04:00 David [facility] MAGNESIUM 2021-06-23 10:04:00 David [facility] BASIC METABOLIC PANEL (NA, 2021-06-23 10:04:00 Jair Hernandez [facility] K, CL, CO2, GLUCOSE, BUN, Medica l Branch CREATININE, CA) VANCOMYCIN TROUGH 2021-06-23 10:04:00 Salazar Linda Sarah [facility] CBC WITHOUT DIFF 2021-06-23 10:04:00 David [facility] LACTIC ACID WHOLE BLOOD 2021-06-23 10:04:00 Salazar Linda [facility] HUMAN IMMUNODEFICIENCY 2021-06-23 10:04:00 David [facility] VIRUS 1 (HIV-1) BY [facility] QUANTITATIVE NAAT POCT GLUCOSE (AUTOMATED) 2021-06-23 06:11:00 Jason Baldwin [facility] LACTIC ACID WHOLE BLOOD 2021-06-23 00:24:00 Salazar Linda [facility] POCT GLUCOSE (AUTOMATED) 2021-06-22 23:08:00 Jason Baldwin [facility] POCT GLUCOSE (AUTOMATED) 2021-06-22 18:19:00 Jason Baldwin [facility] CD4 SUBSET ASSAY 2021-06-22 17:53:00 Marija Nash [facility] MYCOPLASMA PNEUMONIAE 2021-06-22 17:50:00 David [facility] ANTIBODY, IGM [facility] LACTIC ACID WHOLE BLOOD 2021-06-22 17:50:00 Salazar Linda [facility] XR CHEST 1 VW 2021-06-22 14:32:00 David [facility] AC VBG + LACTIC ACID 2021-06-22 11:21:00 David [facility] PHOSPHORUS 2021-06-22 11:20:00 David [facility] MAGNESIUM 2021-06-22 11:20:00 David [facility] COMP. METABOLIC PANEL 2021-06-22 11:20:00 David [facility] ([id number]) [facility] CBC WITH DIFF 2021-06-22 11:20:00 David [facility] POCT GLUCOSE (AUTOMATED) 2021-06-22 11:18:00 Jason Baldwin [facility] POCT GLUCOSE (AUTOMATED) 2021-06-22 05:35:00 Jason Baldwin [facility] POCT GLUCOSE (AUTOMATED) 2021-06-22 00:34:00 Jason Baldwin [facility] POCT GLUCOSE (AUTOMATED) 2021-06-21 17:53:00 Jason Baldwin [facility] POCT GLUCOSE (AUTOMATED) 2021-06-21 11:02:00 Jason Baldwin [facility] LACTIC ACID WHOLE BLOOD 2021-06-21 09:49:00 David [facility] PHOSPHORUS 2021-06-21 09:44:00 David [facility] MAGNESIUM 2021-06-21 09:44:00 David [facility] COMP. METABOLIC PANEL 2021-06-21 09:44:00 David [facility] ([id number]) [facility] Branch VANCOMYCIN TROUGH 2021-06-21 09:44:00 Onesimo [facility] CBC WITHOUT DIFF 2021-06-21 09:44:00 David [facility] LACTIC ACID WHOLE BLOOD 2021-06-21 05:12:00 [facility] 2021-06-21 05:11:00 Jason Baldwin [facility] POCT GLUCOSE (AUTOMATED) 2021-06-20 23:55:00 Jason Baldwin [facility] LACTIC ACID WHOLE BLOOD 2021-06-20 22:14:00 David [facility] LACTIC ACID WHOLE BLOOD 2021-06-20 18:18:00 David [facility] BASIC METABOLIC PANEL (NA, 2021-06-20 18:17:00 Jair Hernandez [facility] K, CL, CO2, GLUCOSE, BUN, Medica l Branch CREATININE, CA) POCT GLUCOSE (AUTOMATED) 2021-06-20 18:01:00 Jason Baldwin [facility] POCT GLUCOSE (AUTOMATED) 2021-06-20 10:46:00 Jason Baldwin [facility] PHOSPHORUS 2021-06-20 10:43:00 Onesimo [facility] MAGNESIUM 2021-06-20 10:43:00 Onesimo [facility] HEPATIC FUNCTION PANEL 2021-06-20 10:43:00 Sarah Schumacher [facility] ([id number]) (ALB,T.PRO,BILI [facility] T,BU/BC,ALT,AST,ALK PHOS) BASIC METABOLIC PANEL (NA, 2021-06-20 10:43:00 Onesimo [facility] K, CL, CO2, GLUCOSE, BUN, Medica l Branch CREATININE, CA) CBC WITH DIFF 2021-06-20 10:43:00 Onesimo [facility] POCT GLUCOSE (AUTOMATED) 2021-06-20 05:37:00 Jason Baldwin [facility] LACTIC ACID WHOLE BLOOD 2021-06-20 05:30:00 Onesimo [facility] URINE CULTURE 2021-06-19 23:12:00 Onesimo [facility] LACTIC ACID WHOLE BLOOD 2021-06-19 22:31:00 Onesimo [facility] PHOSPHORUS 2021-06-19 22:30:00 Onesimo [facility] MAGNESIUM 2021-06-19 22:30:00 Onesimo [facility] IONIZED CALCIUM 2021-06-19 22:30:00 Onesimo [facility] BASIC METABOLIC PANEL (NA, 2021-06-19 22:30:00 William Echols [facility] K, CL, CO2, GLUCOSE, BUN, Medica l Branch CREATININE, CA) CBC WITH DIFF 2021-06-19 22:30:00 Onesimo [facility] HB ABO GROUPING 2021-06-19 22:30:00 Onesimo [facility] MRSA / MSSA SCREEN BY PCR, 2021-06-19 22:30:00 William Echols [facility] POCT GLUCOSE (AUTOMATED) 2021-06-19 22:25:00 Jason Baldwin [facility] MEMORANDUM OF TRANSFER 2021-06-19 06:01:00 Doctor [facility] [place] [facility] XR HIPS 3 VW RIGHT 2020-05-21 15:55:59 Vlad Vides y [facility] XR KNEE <3 VW RIGHT 2020-05-21 15:55:59 Vlad Vides ty [facility] Encounters Start End Encounter Admission Attending Care Care Encounter Source Date/Time Date/Time Type Type Clinicians Facility Department ID 2021-08-04 2021-08-04 Telephone EDEN John [id number] Univers 00:00:00 00:00:00 Timmy Lee [facility] [id number] ity of CL[id number] [id number] [facility] 028 Branch 2021-07-14 2021-07-14 Orders Doctor WILLIAM [id number] Univers 00:00:00 00:00:00 Only Unassigned, NANCY [id number] ity of [place] [facility] [id number] William as [id number] [facility] 009 Branch 2021-06-29 2021-06-29 Transition ARCHIE Tamayo [id number] Univers 00:00:00 00:00:00 of Care Ellen Gant HUITRON [id number] i ty of [id number] [id number] [facility] 403 Branch 2021-06-19 2021-06-26 Inpatient U GILBERTO [facility] [id number] Univers 15:45:00 10:18:00 JASON ochoa [facility] 2021-06-19 2021-06-26 [facility] PIOTR Baldwin [id number] Univers 15:45:00 10:18:00 Encounter Jason CRUZ 350.1.13.10 ity of [facility] 4.2.7.2.686 William as [id number] [facility] [address] 2021-06-22 2021-06-22 [facility] Chan Franklin FORRESTJIN 1.2.840. 114 [id number] Univers 10:26:00 23:59:00 Encounter Jason Baldwin 350.1.13.10 ity of [facility] 4.2.7.2.686 William as [id number] [facility] [address] 2020-05-21 2020-05-21 Emergency [facility] [id number] Univers 09:13:00 10:22:00 Vlad Celis 350.1.13.10 i [facility] [place] [id number] [facility] [address] 2020-05-21 2020-05-21 Emergency [facility] [id number] Univers 09:13:00 09:13:00 VLAD ochoa [facility] 2019-08-24 2019-08-24 [facility] MODE [id number] 19:15:00 19:15:00 [facility] 2019-08-24 2019-08-24 Emergency [facility] [id number] 19:15:00 19:15:00 [id number] [address] [place] [address] Results Test Description Test Time Test Comments Results Result Comments Source BASIC METABOLIC PANEL (NA, K, CL, CO2, GLUCOSE, BUN, 2021-06 12:22:03 CREATININE, [place]) Test Item Value Reference Range Interpretation Comme nts NA (test code = 7361011499) 134 mmol/L 135-145 L K (test code = 2120325134) 4.3 mmol/L 3.5-5.0 CL (test code = 9284851405) 102 mmol/L 98-108 CO2 TOTAL (test code = 6742388311) 29 mmol/L 23-31 AGAP (test code = 3862387056) 2-16 BUN (test code = 2966278004) 14 mg/dL 7-23 GLUCOSE (test code = 5048276941) 106 mg/dL 70-110 CREATININE (test code = 0.60 mg/dL 0.50-1.04 6100902513) CALCIUM (test code = 5179974284) 8.3 mg/dL 8.6-10.6 L eGFR (test code = 3455635314) mL/min/1.73m2 ANA (test code = ANA) Association [...] tests). Lab Interpretation (test code = Abnormal 73795-8) [facility] Test Item Value Reference Range Interpretation Comments MAGNESIUM (test code = 3860890485) 2.1 mg/dL 1.7-2.4 Lab Interpretation (test code = Normal 10729-6) [facility] 12:22:03 Test Item Value Reference Range Interpretation Comments PHOSPHORUS (test code = 8279329768) 4.5 mg/dL 2.5-5.0 Lab Interpretation (test code = Normal 51931-7) [facility] [id number] 12:00:40 Test Item Value Reference Range Interpretation Comments WBC (test code = 6690-2) See_Comment H [A utomated message] The system [employer] generated this result transmit willie reference range : 4.30 - 11.10 10*3/?L. The reference range was not used to interpret this result as normal/abnormal . RBC (test code = 789-8) See_Comment L [Au tomated message] The system [employer] generated this result transmit willie reference range [...] 777-3) See_Comment [Au tomated message] The system [employer] generated this result transmit willie reference range : 166 - 358 10*3/?L. The reference range was not used to interpret this result as normal/abnormal . MPV (test code = 8.5 fL 9.5-12.9 L 56879-4) RDW-CV (test code = 13.8 % 12.0-15.5 788-0) RDW-SD (test code = 46.3 fL 39.0-49.9 41523-2) NRBC x10^3 (test code = <0.01 See_Comment [Au tomated message] 2418099701) The system [employer] generated this result transmit willie reference range : 10*3/?L. The reference range was not used to interpret this result as normal/abnormal . NRBC/100 WBC (test code See_Comment [Au tomated message] = 5778788447) The system [employer] generated this result transmit willie reference range : 0.0 - 10.0 /100 WBC s. The reference r zakia was not used to interpret this result as normal/abnormal . IPF % (test code = 5189295535) Lab Interpretation (test Abnormal code = 43722-2) [facility] GLUCOSE (AUTOMATED)2021-06-26 00:04:01 Test Item Value Reference Range Interpretation Comments POCT GLU (test code = 7417320569) 173 mg/dL 70-110 H Lab Interpretation (test code = Abnormal 48637-8) [facility] GLUCOSE (AUTOMATED)2021-06-25 17:55:35 Test Item Value Reference Range Interpretation Comments POCT GLU (test code = 0985872365) 145 mg/dL 70-110 H Lab Interpretation (test code = Abnormal 98610-1) [facility] GLUCOSE (AUTOMATED)2021-06-25 06:15:45 Test Item Value Reference Range Interpretation Comments POCT GLU (test code = 0758695883) 135 mg/dL 70-110 H Lab Interpretation (test code = Abnormal 50104-4) [facility] GLUCOSE (AUTOMATED)2021-06-24 23:16:03 Test Item Value Reference Range Interpretation Comments POCT GLU (test code = 1766562910) 110 mg/dL 70-110 Lab Interpretation (test code = Normal 23958-6) [facility]COP[facility] PNEUMONIAE ANTIBODY, [id number] 20:37:47 Test Item Value Reference Range Interpretation [...] pneumonia e- ?specific IgM a ntibody ?detected. Ho wever, low levels ? of IgM antibodies may ?occasionally p ersist for more ?th an 12 months post-infection. Performed By: SAND[facility] [address] [place] [id number] aboratory Director: Nirmala Layton MD [Aut omated message] The sy stem which generated this result transmit willie reference range : <=0.76. The reference r zakia was not used to int erpret this result as normal/abnormal . [facility] GLUCOSE (AUTOMATED)2021-06-24 17:53:24 Test Item Value Reference Range Interpretation Comments POCT GLU (test code = 2043160973) 120 mg/dL 70-110 H Lab Interpretation (test code = Abnormal 15155-3) [facility] GLUCOSE (AUTOMATED)2021-06-24 12:00:41 Test Item Value Reference Range Interpretation Comments POCT GLU (test code = 4504909295) 152 mg/dL 70-110 H Lab Interpretation (test code = Abnormal 43309-0) [facility] METABOLIC PANEL (NA, K, CL, CO2, GLUCOSE, BUN, CREATININE, [place])2021-06-24 11:54:18 Test Item Value Reference Range Interpretation Comments NA (test code = 134 mmol/L 135-145 L 6725418986) K (test code = 3.5 mmol/L 3.5-5.0 1302704347) CL (test code = 105 mmol/L 98-108 9379840883) CO2 TOTAL (test code = 24 mmol/L 23-31 9641130135) AGAP (test code = 2-16 4491610597) BUN (test code = 20 mg/dL 7-23 9947772892) GLUCOSE (test code = 191 mg/dL 70-110 H 9396110536) CREATININE (test code = 0.77 mg/dL 0.50-1.04 8069677966) CALCIUM (test code = 7.7 mg/dL 8.6-10.6 L 9878757856) eGFR (test code = mL/min/1.73m2 7949436472) ANA (test code = ANA) Association of [...] tests). Lab Interpretation Abnormal (test code = 76656-9) [facility] 11:54:18 Test Item Value Reference Range Interpretation Comments PHOSPHORUS (test code = 2543778692) 3.4 mg/dL 2.5-5.0 Lab Interpretation (test code = Normal 18081-8) [facility]21[facility] 11:54:18 Test Item Value Reference Range Interpretation Comments MAGNESIUM (test code = 6052732423) 2.0 mg/dL 1.7-2.4 Lab Interpretation (test code = Normal 57306-8) [facility] [id number] 11:12:33 Test Item Value Reference Range Interpretation Comments WBC (test code = 6690-2) See_Comment H [A utomated message] The system [employer] generated this result transmit willie reference range : 4.30 - 11.10 10*3/?L. The reference range was not used to interpret this result as normal/abnormal . RBC (test code = 789-8) See_Comment L [Au tomated message] The system [employer] generated this result transmit willie reference range [...] 777-3) See_Comment [Au tomated message] The system [employer] generated this result transmit willie reference range : 166 - 358 10*3/?L. The reference range was not used to interpret this result as normal/abnormal . MPV (test code = 8.9 fL 9.5-12.9 L 58782-2) RDW-CV (test code = 14.5 % 12.0-15.5 788-0) RDW-SD (test code = 47.9 fL 39.0-49.9 57808-5) NRBC x10^3 (test code = See_Comment [Au tomated message] 9764695956) The system [employer] generated this result transmit willie reference range : 10*3/?L. The reference range was not used to interpret this result as normal/abnormal . NRBC/100 WBC (test code See_Comment [Au tomated message] = 7603437562) The system [employer] generated this result transmit willie reference range : 0.0 - 10.0 /100 WBC s. The reference r zakia was not used to interpret this result as normal/abnormal . IPF % (test code = 9828230308) Lab Interpretation (test Abnormal code = 55666-9) [facility] GLUCOSE (AUTOMATED)2021-06-24 06:19:32 Test Item Value Reference Range Interpretation Comments POCT GLU (test code = 0590921270) 275 mg/dL 70-110 H Lab Interpretation (test code = Abnormal 49402-0) [facility] GLUCOSE (AUTOMATED)2021-06-24 02:05:55 Test Item Value Reference Range Interpretation Comments POCT GLU (test code = 0803602143) 175 mg/dL 70-110 H Lab Interpretation (test code = Abnormal 06383-0) [facility] GLUCOSE (AUTOMATED)2021-06-23 23:20:29 Test Item Value Reference Range Interpretation Comments POCT GLU (test code = 0853203836) 173 mg/dL 70-110 H Lab Interpretation (test code = Abnormal 09073-0) [facility] IMMUNODEFICIENCY VIRUS 1 (HIV-1) BY QUANTITATIVE [id number] 21:30:43 Test Item Value Reference Range Interpretation Comments HIV-1 Quantitative Not Detected Not Detected Interpretation (test code = 4330784248) ANA (test code = ANA) The Aptima [...] indicated. Lab Interpretation Normal (test code = 23362-2) [facility] SUBSET [id number] 18:16:29 Test Item Value Reference Range Interpretation Comments CD4 % (test code = 29 % 31-60 L 8123-2) CD4 Absolute (test code See_Comment [Au tomated message] = 13478-9) The system [employer] generated this result transmitted ref erence range: 410-1,59 0 Cells/?L. The reference range was not used to int erpret this result as normal/abnormal . Lab Interpretation (test Abnormal code = 90201-6) [facility]2021-06-23 17:28:01 Test Item Value Reference Range Interpretation Comments POCT GLU (test code = 2493782609) 103 mg/dL 70-110 Lab Interpretation (test code = Normal 08007-7) [facility] Trough Level - Draw immediately prior to the NEXT dose, but, no more than 60 minutes before the 2ND dose. 2021-06-23 11:44:09 Test Item Value Reference Range Interpretation Comments VANCO TROUGH (test code <5.0 10.0-20.0 L = 3496673263) ANA (test code = ANA) Toxic Range: ?>20 ug/mL 15-20 ug/mL is recommended for severe infection or when Vancomycin ROSETTA is greater than or equal to 2. Lab Interpretation (test Abnormal code = 17824-4) [facility] GLUCOSE (AUTOMATED)2021-06-23 11:34:02 Test Item Value Reference Range Interpretation Comments POCT GLU (test code = 9084159477) 128 mg/dL 70-110 H Lab Interpretation (test code = Abnormal 02391-7) [facility] METABOLIC PANEL (NA, K, CL, CO2, GLUCOSE, BUN, CREATININE, CA)2021-06-23 11:08:10 Test Item Value Reference Range Interpretation Comments NA (test code = 135 mmol/L 135-145 6848196286) K (test code = 4.1 mmol/L 3.5-5.0 4020898865) CL (test code = 110 mmol/L 98-108 H 7467832387) CO2 TOTAL (test code = 24 mmol/L 23-31 3265831762) AGAP (test code = 2-16 L 8445517468) BUN (test code = 17 mg/dL 7-23 6793831508) GLUCOSE (test code = 135 mg/dL 70-110 H 6772497555) CREATININE (test code = 0.67 mg/dL 0.50-1.04 6873619190) CALCIUM (test code = 8.0 mg/dL 8.6-10.6 L 2087632848) eGFR (test code = mL/min/1.73m2 0227488817) ANA (test code = ANA) Association of [...] tests). Lab Interpretation Abnormal (test code = 81522-4) [facility] 11:08:10 Test Item Value Reference Range Interpretation Comments MAGNESIUM (test code = 9566226662) 2.2 mg/dL 1.7-2.4 Lab Interpretation (test code = Normal 81345-0) [facility]2021[facility] 11:08:10 Test Item Value Reference Range Interpretation Comments PHOSPHORUS (test code = 3864781987) 2.9 mg/dL 2.5-5.0 Lab Interpretation (test code = Normal 02259-0) [facility] WITHOUT [id number] 10:23:04 Test Item Value Reference Range Interpretation Comments WBC (test code = 6690-2) See_Comment H [A utomated message] The system [employer] generated this result transmit willie reference range : 4.30 - 11.10 10*3/?L. The reference range was not used to interpret this result as normal/abnormal . RBC (test code = 789-8) See_Comment L [Au tomated message] The system [employer] generated this result transmit willie reference range [...] 777-3) See_Comment [Au tomated message] The system [employer] generated this result transmit willie reference range : 166 - 358 10*3/?L. The reference range was not used to interpret this result as normal/abnormal . MPV (test code = 8.8 fL 9.5-12.9 L 78723-7) RDW-CV (test code = 14.2 % 12.0-15.5 788-0) RDW-SD (test code = 46.4 fL 39.0-49.9 27580-3) NRBC x10^3 (test code = See_Comment [Au tomated message] 3118128560) The system [employer] generated this result transmit willie reference range : 10*3/?L. The reference range was not used to interpret this result as normal/abnormal . NRBC/100 WBC (test code See_Comment [Au tomated message] = 7904640452) The system [employer] generated this result transmit willie reference range : 0.0 - 10.0 /100 WBC s. The reference r zakia was not used to interpret this result as normal/abnormal . IPF % (test code = 2135539755) Lab Interpretation (test Abnormal code = 48361-3) [facility] [id number] 10:16:20 Test Item Value Reference Range Interpretation Comments LACTIC ACID (test code = 2.09 mmol/L 0.50-2.20 1869707139) Lab Interpretation (test code = Normal 11846-1) [facility] GLUCOSE (AUTOMATED)2021-06-23 06:12:14 Test Item Value Reference Range Interpretation Comments POCT GLU (test code = 4599839206) 138 mg/dL 70-110 H Lab Interpretation (test code = Abnormal 98738-5) [facility] [id number] 00:54:09 Test Item Value Reference Range Interpretation Comments LACTIC ACID (test code = 3.13 mmol/L 0.50-2.20 H 9931598231) Lab Interpretation (test code = Abnormal 07944-8) [facility] GLUCOSE (AUTOMATED)2021-06-22 23:21:03 Test Item Value Reference Range Interpretation Comments POCT GLU (test code = 9300112331) 143 mg/dL 70-110 H Lab Interpretation (test code = Abnormal 55889-1) [facility] GLUCOSE (AUTOMATED)2021-06-22 18:45:21 Test Item Value Reference Range Interpretation Comments POCT GLU (test code = 6584726568) 123 mg/dL 70-110 H Lab Interpretation (test code = Abnormal 98940-0) [facility] Whole [id number] 18:03:01 Test Item Value Reference Range Interpretation Comments LACTIC ACID (test code = 3.63 mmol/L 0.50-2.20 H 4111300280) Lab Interpretation (test code = Abnormal 26074-3) [facility] WITH [id number] 13:14:33 Test Item Value Reference Range Interpretation [...] RDW-SD (test code = 46.0 fL 39.0-49.9 50907-1) RDW-CV (test code = 13.6 % 12.0-15.5 788-0) PLT (test code = See_Comment [Automated 777-3) message] The system which generated this result transmitted reference range : 166 - 358 10*3/?L. The reference range was not used to interpret this result as normal/abnormal . MPV (test code = 8.9 fL 9.5-12.9 L 09021-5) NRBC/100 WBC (test See_Comment [Automat ed code = 2319223164) message] The system which generated this result transmitted reference range : 0.0 - 10.0 /100 WBCs. The reference range was not used to interpret this result as normal/abnormal . NRBC x10^3 (test code <0.01 See_Comment [Auto mated = 7945635697) message] The system which generated this result transmitted reference range : 10*3/?L. The reference range was not used to interpret this result as normal/abnormal . GRAN MAT (NEUT) % 83.5 % (test code = 770-8) IMM GRAN % (test code 5.10 % = 9698600011) LYMPH % (test code = 6.3 % 736-9) MONO % (test code = 4.5 % 5905-5) EOS % (test code = 0.1 % 713-8) BASO % (test code = 0.5 % 706-2) GRAN MAT x10^3(ANC) 22.80 10*3/uL 1.88-7.09 H (test code = 0122603271) IMM GRAN x10^3 (test 1.40 10*3/uL 0.00-0.06 H code = 1462801756) LYMPH x10^3 (test 1.72 10*3/uL 1.32-3.29 code = 731-0) MONO x10^3 (test code 1.24 10*3/uL 0.33-0.92 H = 742-7) EOS x10^3 (test code 0.04 10*3/uL 0.03-0.39 = 711-2) BASO x10^3 (test code 0.13 10*3/uL 0.01-0.07 H = 704-7) BANDS (test code = MARKED INCREASED A 2323420217) TOXIC CHANGES (test Present A code = 803-7) Lab Interpretation Abnormal (test code = 70877-0) [facility]. METABOLIC PANEL (53978)2021-06-22 12:17:52 Test Item Value Reference Range Interpretation Comments NA (test code = 134 mmol/L 135-145 L 3090544674) K (test code = 4.0 mmol/L 3.5-5.0 2325641099) CL (test code = 108 mmol/L 98-108 1091176046) CO2 TOTAL (test code = 21 mmol/L 23-31 L 4517174975) AGAP (test code = 2-16 6153806949) BUN (test code = 11 mg/dL 7-23 7176270775) GLUCOSE (test code = 160 mg/dL 70-110 H 0214207368) CREATININE (test code = 0.61 mg/dL 0.50-1.04 1038680466) TOTAL BILI (test code = 0.3 mg/dL 0.1-1.0 8595874317) CALCIUM (test code = 7.6 mg/dL 8.6-10.6 L 7824082267) T PROTEIN (test code = 4.8 g/dL 6.3-8.2 L 9772976405) ALBUMIN (test code = 2.2 g/dL 3.5-5.0 L 3661588833) ALK PHOS (test code = 75 U/L 34-122 0410899483) ALTv (test code = 26 U/L 5-35 1742-6) AST(SGOT) (test code = 21 U/L 13-40 3862820567) eGFR (test code = mL/min/1.73m2 0308614787) ANA (test code = ANA) Association of [...] tests). Lab Interpretation Abnormal (test code = 07257-7) [facility] 12:17:52 Test Item Value Reference Range Interpretation Comments MAGNESIUM (test code = 1428704253) 2.0 mg/dL 1.7-2.4 Lab Interpretation (test code = Normal 13693-1) [facility] 12:17:52 Test Item Value Reference Range Interpretation Comments PHOSPHORUS (test code = 3375580310) 2.0 mg/dL 2.5-5.0 L Lab Interpretation (test code = Abnormal 44970-5) [facility] V[facility] + LACTIC [id number] 12:03:21 Test Item Value Reference Range Interpretation Comments PH (test code = 7.32-7.42 0427893856) PCO2 WENDY (test code = See_Comment L [Auto mated 7420897702) message] The sy stem which generated this result transmitted reference range : 41 - 51 mmHg. The reference range was not used to interpret this result as normal/abnormal . PO2 WENDY (test code = See_Comment HH [Autom ated 5361366989) message] The sy stem which generated this result transmitted reference range : 25 - 40 mmHg. The reference range was not used to interpret this result as normal/abnormal . HCO3 WENDY (test code = See_Comment L [Auto mated 9673157770) message] The sy stem which generated this result transmitted reference range : 24 - 28 mEq/L. The reference range was not used to interpret this result as normal/abnormal . AC VBE(BEAKER) (test mEq/L code = 7733124019) LACTIC ACID (test code 3.13 mmol/L 0.50-2.20 H = 1823206327) Lab Interpretation Abnormal (test code = 50680-6) [facility] GLUCOSE (AUTOMATED)2021-06-22 11:29:33 Test Item Value Reference Range Interpretation Comments POCT GLU (test code = 3938956614) 154 mg/dL 70-110 H Lab Interpretation (test code = Abnormal 50821-6) [facility] GLUCOSE (AUTOMATED)2021-06-22 05:41:42 Test Item Value Reference Range Interpretation Comments POCT GLU (test code = 5435955671) 217 mg/dL 70-110 H Lab Interpretation (test code = Abnormal 47014-3) [facility] GLUCOSE (AUTOMATED)2021-06-22 00:36:50 Test Item Value Reference Range Interpretation Comments POCT GLU (test code = 0992499222) 142 mg/dL 70-110 H Lab Interpretation (test code = Abnormal 19014-2) [facility] GLUCOSE (AUTOMATED)2021-06-21 17:54:52 Test Item Value Reference Range Interpretation Comments POCT GLU (test code = 6599267817) 160 mg/dL 70-110 H Lab Interpretation (test code = Abnormal 13813-5) [facility] Level - Draw immediately prior to the 4TH dose, but, no more than 60 minutes before the 4TH dose. 2021-06-21 11:09:36 Test Item Value Reference Range Interpretation Comments VANCO TROUGH (test code 5.8 ug/mL 10.0-20.0 L = 3917822803) ANA (test code = ANA) Toxic Range: ?>20 ug/mL 15-20 ug/mL is recommended for severe infection or when Vancomycin ROSETTA is greater than or equal to 2. Lab Interpretation (test Abnormal code = 29111-2) [facility] GLUCOSE (AUTOMATED)2021-06-21 11:03:43 Test Item Value Reference Range Interpretation Comments POCT GLU (test code = 1566905640) 155 mg/dL 70-110 H Lab Interpretation (test code = Abnormal 60654-4) [facility] METABOLIC PANEL (20762)2021-06-21 10:33:49 Test Item Value Reference Range Interpretation Comments NA (test code = 132 mmol/L 135-145 L 0209701950) K (test code = 4.1 mmol/L 3.5-5.0 9658359993) CL (test code = 108 mmol/L 98-108 3212329177) CO2 TOTAL (test code = 18 mmol/L 23-31 L 6688559731) AGAP (test code = 2-16 2260412639) BUN (test code = 13 mg/dL 7-23 1511809252) GLUCOSE (test code = 175 mg/dL 70-110 H 5384000457) CREATININE (test code = 0.75 mg/dL 0.50-1.04 1882407695) TOTAL BILI (test code = 0.3 mg/dL 0.1-1.2 8414719635) CALCIUM (test code = 7.8 mg/dL 8.6-10.6 L 6607249674) T PROTEIN (test code = 4.7 g/dL 6.3-8.2 L 8150252039) ALBUMIN (test code = 2.3 g/dL 3.5-5.0 L 2768899137) ALK PHOS (test code = 73 U/L 34-122 3287638623) ALTv (test code = 39 U/L 5-35 H 1742-6) AST(SGOT) (test code = 28 U/L 13-40 3635257165) eGFR (test code = mL/min/1.73m2 9368778192) ANA (test code = ANA) Association of [...] tests). Lab Interpretation Abnormal (test code = 08574-6) [facility] 10:33:49 Test Item Value Reference Range Interpretation Comments MAGNESIUM (test code = 1181038757) 2.1 mg/dL 1.7-2.4 Lab Interpretation (test code = Normal 80286-4) [facility]2021[facility] 10:33:49 Test Item Value Reference Range Interpretation Comments PHOSPHORUS (test code = 4369072976) 1.9 mg/dL 2.5-5.0 L Lab Interpretation (test code = Abnormal 05421-2) [facility] HospitalL[facility] Whole [id number] 10:13:28 Test Item Value Reference Range Interpretation Comments LACTIC ACID (test code = 3.09 mmol/L 0.50-2.20 H 7962252587) Lab Interpretation (test code = Abnormal 33909-8) [facility] WITHOUT [id number] 10:08:31 Test Item Value Reference Range Interpretation Comments WBC (test code = 6690-2) See_Comment H [A utomated message] The system [employer] generated this result transmit willie reference range : 4.30 - 11.10 10*3/?L. The reference range was not used to interpret this result as normal/abnormal . RBC (test code = 789-8) See_Comment [Au tomated message] The system [employer] generated this result transmit willie reference range [...] 777-3) See_Comment [Au tomated message] The system [employer] generated this result transmit willie reference range : 166 - 358 10*3/?L. The reference range was not used to interpret this result as normal/abnormal . MPV (test code = 9.0 fL 9.5-12.9 L 97556-5) RDW-CV (test code = 13.3 % 12.0-15.5 788-0) RDW-SD (test code = 45.6 fL 39.0-49.9 42083-3) NRBC x10^3 (test code = <0.01 See_Comment [Au tomated message] 4586189849) The system [employer] generated this result transmit willie reference range : 10*3/?L. The reference range was not used to interpret this result as normal/abnormal . NRBC/100 WBC (test code See_Comment [Au tomated message] = 7653447518) The system [facility] generated this result transmit willie reference range : 0.0 - 10.0 /100 WBC s. The reference r zakia was not used to interpret this result as normal/abnormal . IPF % (test code = 6698335874) Lab Interpretation (test Abnormal code = 48610-8) [facility] HospitalLaky[facility] Acid Whole [id number] 05:27:17 Test Item Value Reference Range Interpretation Comments LACTIC ACID (test code = 3.55 mmol/L 0.50-2.20 H 0114485175) Lab Interpretation (test code = Abnormal 55877-4) [facility] GLUCOSE (AUTOMATED)2021-06-21 05:15:20 Test Item Value Reference Range Interpretation Comments POCT GLU (test code = 4500221883) 252 mg/dL 70-110 H Lab Interpretation (test code = Abnormal 64955-8) [facility] 23:57:17 Test Item Value Reference Range Interpretation Comments POCT GLU (test code = 2105423634) 143 mg/dL 70-110 H Lab Interpretation (test code = Abnormal 57608-5) [facility] Whole [id number] 22:44:12 Test Item Value Reference Range Interpretation Comments LACTIC ACID (test code = 4.40 mmol/L 0.50-2.20 H 8408598147) Lab Interpretation (test code = Abnormal 77846-9) [facility] METABOLIC PANEL (NA, K, CL, CO2, GLUCOSE, BUN, CREATININE, CA)2021-06-20 18:53:00 Test Item Value Reference Range Interpretation Comments NA (test code = 128 mmol/L 135-145 L 9657717529) K (test code = 3.8 mmol/L 3.5-5.0 5557534899) CL (test code = 106 mmol/L 98-108 2220354019) CO2 TOTAL (test code = 16 mmol/L 23-31 L 1091496658) AGAP (test code = 2-16 4962589665) BUN (test code = 17 mg/dL 7-23 9933995194) GLUCOSE (test code = 143 mg/dL 70-110 H 6707677562) CREATININE (test code = 0.96 mg/dL 0.50-1.04 4942017264) CALCIUM (test code = 7.2 mg/dL 8.6-10.6 L 9617031377) eGFR (test code = mL/min/1.73m2 8433527008) ANA (test code = ANA) Association of [...] tests). Lab Interpretation Abnormal (test code = 72817-0) [facility] [id number] 18:29:31 Test Item Value Reference Range Interpretation Comments LACTIC ACID (test code = 3.67 mmol/L 0.50-2.20 H 1089542537) Lab Interpretation (test code = Abnormal 52831-2) [facility]21-[facility]-20 18:14:36 Test Item Value Reference Range Interpretation Comments POCT GLU (test code = 8994502797) 140 mg/dL 70-110 H Lab Interpretation (test code = Abnormal 71641-6) [facility] (NA, K, CL, CO2, GLUCOSE, BUN, CREATININE, CA)2021-06-20 14:04:20 Test Item Value Reference Range Interpretation Comments NA (test code = 127 mmol/L 135-145 L 2300158167) K (test code = 3.5 mmol/L 3.5-5.0 1444995752) CL (test code = 105 mmol/L 98-108 3196387326) CO2 TOTAL (test code = 16 mmol/L 23-31 L 8551525401) AGAP (test code = 2-16 4747894491) BUN (test code = 20 mg/dL 7-23 8139388376) GLUCOSE (test code = 214 mg/dL 70-110 H 0671457066) CREATININE (test code = 1.28 mg/dL 0.50-1.04 H 3734848961) CALCIUM (test code = 7.2 mg/dL 8.6-10.6 L 3115429031) eGFR (test code = mL/min/1.73m2 1111911614) ANA (test code = ANA) Association of [...] tests). Lab Interpretation Abnormal (test code = 03521-6) [facility] 14:04:20 Test Item Value Reference Range Interpretation Comments MAGNESIUM (test code = 9983363550) 2.2 mg/dL 1.7-2.4 Lab Interpretation (test code = Normal 68405-2) [facility]2021-[facility]-18 14:04:20 Test Item Value Reference Range Interpretation Comments PHOSPHORUS (test code = 7148782655) 3.3 mg/dL 2.5-5.0 Lab Interpretation (test code = Normal 21386-6) [facility] HospitalHEPAT[facility] PANEL (50591) (ALB,T.PRO,BILI T,BU/BC,ALT,AST,ALK PHOS)2021-06-20 14:04:20 Test Item Value Reference Range Interpretation Comments TOTAL BILI (test code = 2093022373) 0.8 mg/dL 0.1-1.1 BILI UNCON (test code = 3000127059) 0.4 mg/dL 0.1-1.1 BILI CONJ (test code = 4878117892) 0.0 mg/dL 0.0-0.3 T PROTEIN (test code = 2969959660) 4.4 g/dL 6.3-8.2 L ALBUMIN (test code = 8724125166) 2.0 g/dL 3.5-5.0 L ALK PHOS (test code = 5232448383) 53 U/L 34-122 ALTv (test code = 1742-6) 85 U/L 5-35 H AST(SGOT) (test code = 9321780948) 56 U/L 13-40 H Lab Interpretation (test code = Abnormal 49145-6) [facility] WITH [id number] 11:35:59 Test Item Value Reference Range Interpretation Comments WBC (test code = See_Comment H [Automated 2090-2) message] The system which generated this result transmitted reference range : 4.30 - 11.10 10*3/?L. The reference range was not used to interpret this result as normal/abnormal . RBC (test code = See_Comment [Automated 145-8) message] The system which generated this result [...] RDW-SD (test code = 44.5 fL 39.0-49.9 90107-4) RDW-CV (test code = 13.2 % 12.0-15.5 788-0) PLT (test code = See_Comment [Automated 777-3) message] The system which generated this result transmitted reference range : 166 - 358 10*3/?L. The reference range was not used to interpret this result as normal/abnormal . MPV (test code = 8.6 fL 9.5-12.9 L 96725-5) NRBC/100 WBC (test See_Comment [Automat ed code = 5695059590) message] The system which generated this result transmitted reference range : 0.0 - 10.0 /100 WBCs. The reference range was not used to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
[2021-10-12 12:17] LABS: Absolute Lymphocytes (CBC) 2.3 K/uL (0.7-4.9); Hematocrit 41.6 % (36.0-45.0); Lymphocytes % 30.5 % (15.3-44.8); MPV 6.5 fL (7.6-11.3); RBC Red Blood Cell Count 4.58 M/uL (3.86-4.86)
[2021-10-12 12:34] LABS: BUN Blood Urea Nitrogen 8 mg/dL (7-18); Bicarbonate 26 mmol/L (21-32); Glucose Level 104 mg/dL (74-106); Potassium 3.8 mmol/L (3.5-5.1); Sodium Level 136 mmol/L (136-145)
--- NOTE | 2021-10-12 13:53 | ER ---
Nurse's Notes [facility] Name: Gabrielle Levine Age: 46 yrs Sex: Female : 1975 Arrival Date: 10/12/2021 Time: 11:01 Bed 12 Private MD: Diagnosis: Other acute sinusitis Presentation: 10/12 11:22 Chief complaint: Patient states: "I went to the ENT and I was told I have an impacted jd3 sinus and been having a fever. I was placed on antibiotics and I don't think they are working. The culture was sent on Tuesday.". Coronavirus screen: At this time, the client does not indicate any symptoms associated with coronavirus-19. Ebola Screen: No symptoms or risks identified at this time. Initial Sepsis Screen: Does the patient meet any 2 criteria? No. Patient's initial sepsis screen is negative. Does the patient have a suspected source of infection? No. Patient's initial sepsis screen is negative. Risk Assessment: Do you want to hurt yourself or someone else? Patient reports no desire to harm self or others. Onset of symptoms was October 12, 2021. 11:22 Method Of Arrival: Ambulatory jd3 11:22 Acuity: PAZ 3 jd3 11:31 Note ENT called while in triage and notified the pt of culture coming back as Staff. 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 - Hysterectomy jd3 Historical: - Allergies: 11:26 Azithromycin; jd3 11:26 Cephalexin Monohydrate; jd3 11:26 Erythromycin; jd3 11:26 metformin; jd3 11:26 Methocarbamol; jd3 11:26 phenytoin sodium; jd3 11:26 phenytoin sodium extended; jd3 11:28 Wellbutrin; jd3 11:28 Dilantin; jd3 - Home Meds: 11:26 Vitamin Oral [Active]; Biktarvy Oral [Active]; clozapine Oral [Active]; jd3 Hydroxyzine Oral [Active]; ozempic [Active]; Prilosec Oral [Active]; Doxycycline Oral [Active]; Topamax Oral [Active]; - PMHx: 11:26 HIV positive; Migraines; Irritable bowel syndrome; PTSD; Anxiety; jd3 - PSHx: 11:26 hysterectomy; jd3 - Immunization history:: Adult Immunizations Client reports receiving the 2nd dose of the Covid vaccine, Flu vaccine is up to date. - Social history:: Smoking status: Patient reports the use of cigarette tobacco products, denies chronic smoking, but will smoke occasionally. Screenin:01 Abuse screen: Denies threats or abuse. Denies injuries from another. Nutritional ss screening: No deficits noted. Tuberculosis screening: Never had TB. Fall Risk None identified. Assessment: 12:00 General: Appears in no apparent distress. comfortable, Behavior is calm, cooperative. ss Neuro: Level of Consciousness is awake, alert, obeys commands, Oriented to person, place, time, situation. Cardiovascular: Capillary refill < 3 seconds is brisk in bilateral fingers Patient's skin is warm and dry. Respiratory: Airway is patent Respiratory effort is even, unlabored, Respiratory pattern is regular, symmetrical. : No signs and/or symptoms were reported regarding the genitourinary system. Derm: Skin is intact, is healthy with good turgor, Skin is dry, Skin is pink, warm \\T\\ dry. normal. 13:01 Reassessment: Patient appears in no apparent distress at this time. Patient and/or ss family updated on plan of care and expected duration. Pain level reassessed. Patient is alert, oriented x 3, equal unlabored respirations, skin warm/dry/pink. 14:02 Reassessment: Patient appears in no apparent distress at this time. Patient and/or ss family updated on plan of care and expected duration. Pain level reassessed. Patient is alert, oriented x 3, equal unlabored respirations, skin warm/dry/pink. Vital Signs: 11:29 BP 115 / 76; Pulse 89; Resp 17 S; Temp 97.8(O); Pulse Ox 97% on R/A; Weight 117.93 kg jd3 (R); Height 5 ft. 8 in. (172.72 cm) (R); Pain 10/10; 11:29 Body Mass Index 39.53 (117.93 kg, 172.72 cm) jd3 ED Course: 11:01 Patient arrived in ED. mr 11:06 Yadiel Joseph PA is PHCP. [facility] 11:06 Cruz Sigala MD is Attending Physician. [facility] 11:24 Triage completed. jd3 11:27 Arm band placed on. jd3 11:29 Patient notified of wait time. jd3 11:30 Nurse Practitioner and/or Physician Assembly Member to see patient. jd3 12:00 First set of blood cultures drawn by ny. Inserted saline lock: 22 gauge in left 3 antecubital area, using aseptic technique. Blood collected. 12:05 Initial lab(s) drawn, by ny, sent to lab. Second set of blood cultures drawn by [facility] 13:01 Patient has correct armband on for positive identification. Bed in low position. Call light in reach. 14:02 Anusha José, RN is Primary Nurse. 14:02 No provider procedures requiring assistance completed. IV discontinued, intact, bleeding controlled, No redness/swelling at site. Pressure dressing applied. Administered Medications: No medications were administered Outcome: 13:52 Discharge ordered by . hafsa 14:02 Discharged to home ambulatory. 14:02 Condition: good 14:02 Discharge instructions given to patient, Instructed on discharge instructions, follow up and referral plans. Demonstrated understanding of instructions, follow-up care. 14:02 Patient left the ED. Signatures: Yadiel Joseph PA PA jmm Rivera, Mary mr Anusha José, RN RN [facility] Guille Laura, RAQUEL RN earline
--- NOTE | 2021-10-12 13:53 | EDPHYS ---
Physician Documentation [facility] Name: Gabrielle Levine Age: 46 yrs Sex: Female : 1975 Arrival Date: 10/12/2021 Time: 11:01 Bed 12 Private MD: ED Physician Cruz Sigala HPI: 10/12 11:35 This 46 yrs old Female presents to ER via Ambulatory with complaints of Fever, jmm Infection. 13:49 This is a 46-year-old female with history of HIV, migraines or herbal bowel syndrome jmm the presents emerged department with complaints of right sinus pain. Patient has been on antibiotics for the past 5 days and has concerns that she may be septic.. 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 - Hysterectomy jd3 Historical: - Allergies: 11:26 Azithromycin; jd3 11:26 Cephalexin Monohydrate; jd3 11:26 Erythromycin; jd3 11:26 metformin; jd3 11:26 Methocarbamol; jd3 11:26 phenytoin sodium; jd3 11:26 phenytoin sodium extended; jd3 11:28 Wellbutrin; jd3 11:28 Dilantin; jd3 - Home Meds: 11:26 Vitamin Oral [Active]; Biktarvy Oral [Active]; clozapine Oral [Active]; jd3 Hydroxyzine Oral [Active]; ozempic [Active]; Prilosec Oral [Active]; Doxycycline Oral [Active]; Topamax Oral [Active]; - PMHx: 11:26 HIV positive; Migraines; Irritable bowel syndrome; PTSD; Anxiety; jd3 - PSHx: 11:26 hysterectomy; jd3 - Immunization history:: Adult Immunizations Client reports receiving the 2nd dose of the Covid vaccine, Flu vaccine is up to date. - Social history:: Smoking status: Patient reports the use of cigarette tobacco products, denies chronic smoking, but will smoke occasionally. ROS: 13:49 Cardiovascular: Negative for chest pain, palpitations, and edema, Respiratory: Negative jmm for shortness of breath, cough, wheezing, and pleuritic chest pain, Neuro: Negative for headache, weakness, numbness, tingling, and seizure. 13:49 Constitutional: Positive for body aches, chills. Exam: 13:49 Constitutional: This is a well developed, well nourished patient who is awake, alert, jmm and in no acute distress. Head/Face: atraumatic. Eyes: EOMI, no conjunctival erythema appreciated ENT: Moist Mucus Membranes Neck: Trachea midline, Supple Chest/axilla: Normal chest wall appearance and motion. Cardiovascular: Regular rate and rhythm. No edema appreciated Respiratory: Normal respirations, no respiratory distress appreciated Abdomen/GI: Non distended, soft Back: Normal ROM Skin: General appearance color normal MS/ Extremity: Moves all extremities, no obvious deformities appreciated, no edema noted to the lower extremities Neuro: Awake and alert Psych: Behavior is normal, Mood is normal, Patient is cooperative and pleasant Vital Signs: 11:29 BP 115 / 76; Pulse 89; Resp 17 S; Temp 97.8(O); Pulse Ox 97% on R/A; Weight 117.93 kg jd3 (R); Height 5 ft. 8 in. (172.72 cm) (R); Pain 10/10; 11:29 Body Mass Index 39.53 (117.93 kg, 172.72 cm) jd3 MDM: 11:35 Patient medically screened. [facility] 13:51 Data reviewed: vital signs, nurses notes. Counseling: I had a detailed discussion with [facility] the patient and/or guardian regarding: the historical points, exam findings, and any diagnostic results supporting the discharge/admit diagnosis, lab results, the need for outpatient follow up, to return to the emergency department if symptoms worsen or persist or if there are any questions or concerns that arise at home. ED course: Patient is alert nontoxic in appearance in the ED. Labs did not indicate any signs of sepsis. Vital signs are normal. Patient advised to follow-up with ENT. Patient is currently taking medication which is sensitive to her infection.. 10/12 11:38 Order name: CBC with Diff; Complete Time: 12:34 [facility] 10/12 11:38 Order name: Procalcitonin; Complete Time: 13:04 [facility] 10/12 11:38 Order name: Lactate; Complete Time: 12:43 [facility] 10/12 11:38 Order name: Blood Culture Adult (2) [facility] 10/12 11:38 Order name: BMP; Complete Time: 12:35 [facility] Administered Medications: No medications were administered Disposition: 14:06 Co-signature as Attending Physician, Cruz Sigala MD. rn Disposition Summary: 10/12/21 13:52 Discharge Ordered Location: Home [facility] Condition: Stable [facility] Diagnosis - Other acute sinusitis [facility] Followup: [facility] - With: Private Physician - When: 2 - 3 days - Reason: Recheck today's complaints, Continuance of care, Re-evaluation by your physician Discharge Instructions: - Discharge Summary Sheet [facility] - Sinusitis, Adult jm Forms: - Medication Reconciliation Form [facility] - Thank You Letter [facility] - Antibiotic Education [facility] - Prescription Opioid Use [facility] Signatures: Dispatcher [employer] EDMS Yadiel Joseph PA PA [facility] Cruz Sigala MD MD rn Guille Laura RN RN jd3
[2021-10-12 14:12] VITALS: BP 115/76; TEMP 97.8; O2SAT 97
== END 2021-10-12 14:02 | disposition home or self-care (01) ==
LOC: ER 10:57
DX: J01.80 Other acute sinusitis (principal); F43.10 Post-traumatic stress disorder, unspecified; F17.210 Nicotine dependence, cigarettes, uncomplicated; Z21 Asymptomatic human immunodeficiency virus [HIV] infection status; Z88.1 Allergy status to other antibiotic agents; Z88.8 Allergy status to other drugs, medicaments and biological substances
CPT/HCPCS: 36415; 80048; 83605; 84145; 85025; 87040; 99283

== ENCOUNTER 2022-01-30 05:57 | Emergency (ER) | payer BC ==
--- NOTE | 2022-01-30 10:36 | RAD REPORT ---
EXAM DESCRIPTION: Alba Clements And Omari (2 Views)01/30/2022 9:22 am CLINICAL HISTORY: Shortness breath COMPARISON: 2020 FINDINGS: The lungs appear clear of acute infiltrate. The heart is normal size IMPRESSION: No acute abnormalities displayed
--- NOTE | 2022-01-30 11:15 | EDPHYS ---
Physician Documentation [facility] Name: Gabrielle Levine Age: 46 yrs Sex: Female : 1975 Arrival Date: 01/30/2022 Time: 06:01 Bed 23 Private MD: ED Physician Crystal Peterson HPI: 01/30 07:42 This 46 yrs old Female presents to ER via Ambulatory with complaints of Fever, sd2 Breathing Difficulty, Cough, Chest Congestion, Vomiting. 07:42 46 yo F with a history of HIV with viral load undetectable presents with CC of sd2 intermittent fever, SOB, sore throat, cough, chest congestion and post-tussive emesis starting 1 month ago. Seen 2 weeks ago at [facility] with negative COVID test and diagnosed with bronchitis. Placed on Medrol dose pack and Tessalon perles but has not improved. States has been taking Robitussin at home with no relief and Phenergan DM with significant relief. Complains of chest wall soreness from coughing as well. . 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 - Social history:: Smoking status: Patient denies any tobacco usage or history of. ROS: 07:42 Cardiovascular: Negative for chest pain, palpitations, and edema. sd2 07:42 MS/Extremity: Negative for injury and deformity, Skin: Negative for injury, rash, and discoloration, Neuro: Negative for headache, numbness and tingling. 07:42 Constitutional: Positive for body aches, chills, fever, malaise, Negative for 07:42 Eyes: 07:42 ENT: Positive for sinus congestion, sore throat, Negative for 07:42 Respiratory: Positive for cough, shortness of breath, Negative for hemoptysis. 07:42 Abdomen/GI: Positive for vomiting, Negative for abdominal pain, nausea, diarrhea. Exam: 07:42 Constitutional: This is a well developed, well nourished patient who is awake, alert, sd2 and in no acute distress. Head/Face: Normocephalic, atraumatic. Eyes: EOMI, normal conjunctiva bilaterally ENT: Nasal congestion present. Chest/axilla: Normal chest wall appearance and motion. Nontender with no deformity. Cardiovascular: Regular rate and rhythm with a normal S1 and S2. No gallops, murmurs, or rubs. 2+ distal pulses. Respiratory: Lungs have equal breath sounds bilaterally, clear to auscultation and percussion. No rales, rhonchi. Occasional expiratory wheeze noted at bilateral bases. No increased work of breathing, no retractions or nasal flaring. Abdomen/GI: Soft, non-tender, with normal bowel sounds. No guarding or rebound. No evidence of tenderness throughout. Skin: Warm, dry with normal turgor. Normal color with no rashes, no lesions, and no evidence of cellulitis. MS/ Extremity: Pulses equal, no cyanosis. Neurovascular intact. Full, normal range of motion. Ambulatory without difficulty. Psych: Awake, alert, with orientation to person, place and time. Behavior, mood, and affect are within normal limits. Vital Signs: 06:15 BP 143 / 84; Pulse 83; Resp 18; Temp 97.8; Pulse Ox 98% on R/A; Weight 117.93 kg; tw5 Height 5 ft. 8 in. (172.72 cm); Pain 3/10; 07:25 BP 127 / 98; Pulse 73; Resp 19; Pulse Ox 99% ; corey 08:56 BP 138 / 87; Pulse 65; Resp 17; Pulse Ox 100% on R/A; corey 06:15 Body Mass Index 39.53 (117.93 kg, 172.72 cm) tw5 MDM: 07:26 Patient medically screened. sd2 07:42 Differential diagnosis: viral Infection, bacterial infection, URI, bronchitis, sd2 pneumonia among others. Data reviewed: vital signs, nurses notes. 11:12 Counseling: I had a detailed discussion with the patient and/or guardian regarding: the sd2 historical points, exam findings, and any diagnostic results supporting the discharge/admit diagnosis, lab results, radiology results, the need for outpatient follow up, to return to the emergency department if symptoms worsen or persist or if there are any questions or concerns that arise at home. Medical screen evaluation completed. [facility] emergency medical condition absent. ED course: Labs and imaging reviewed. COVID, flu and strep testing are negative. Chest x-ray with no acute process noted. The patient was advised of need for follow-up with her primary care provider regarding her symptoms since that have been ongoing for 1 month. Due to her occasional expiratory wheezing, will treat for bronchitis. She has already been on steroids and does not want to repeat these. Will place on doxycycline and give albuterol inhaler for further use. She verbalizes understanding of discharge plan and strict return precautions at this time.. 01/30 07:25 Order name: SARS-COV-2 RT PCR (Document "Date of Onset" if Symptomatic); Complete Time: sd2 10:37 01/30 07:25 Order name: Influenza Screen (a \\T\\ B); Complete Time: 10:37 sd2 01/30 07:25 Order name: Strep; Complete Time: 10:37 sd2 01/30 07:25 Order name: XRAY Chest Pa And Lat (2 Views); Complete Time: 10:37 sd2 01/30 09:04 Order name: Throat Culture EDMS Administered Medications: No medications were administered Disposition Summary: 01/30/22 11:14 Discharge Ordered Location: Home sd2 Problem: an ongoing problem sd2 Symptoms: are unchanged sd2 Condition: Stable sd2 Diagnosis - Acute bronchitis, unspecified sd2 Followup: sd2 - With: Private Physician - When: 2 - 3 days - Reason: Recheck today's complaints, Continuance of care, Re-evaluation by your physician Followup: sd2 - With: Emergency Department - When: As needed - Reason: Discharge Instructions: - Discharge Summary Sheet [id number] - Viral Respiratory Infection sd2 - Acute Bronchitis, Adult, [id number] sd2 Forms: - Medication Reconciliation Form sd2 - Thank You Letter sd2 - Antibiotic Education sd2 - Prescription Opioid Use sd2 Prescriptions: - ProAir HFA 90 mcg/actuation Inhalation HFA aerosol inhaler - inhale 2 puff by INHALATION route every 4-6 hours As needed; 1 Inhaler; [facility] Refills: 0, Product Selection Permitted - Doxycycline Hyclate 100 mg Oral Tablet - take 1 tablet by ORAL route every 12 hours; 20 tablet; Refills: 0, Product sd2 Selection Permitted Signatures: Dispatcher [employer] Melva Hussein tw5 Crystal Peterson MD MD sd2 Corrections: (The following items were deleted from the chart) 08:10 08:06 Influenza Screen (A ordered. FELIPE WANG
--- NOTE | 2022-01-30 11:15 | ER ---
Nurse's Notes [facility] Name: Gabrielle Levine Age: 46 yrs Sex: Female : 1975 Arrival Date: 01/30/2022 Time: 06:01 Bed 23 Private MD: Diagnosis: Acute bronchitis, unspecified Presentation: 01/30 06:15 Chief complaint: Patient states: "I have a respiratory infection. It started off with a tw5 sore throat about a month ago. Now I have a congestive cough, then the fever hit for about a weak. Now I am run down and I cannot take it anymore. I cannot stop coughing. I was seen in [place] [facility] last . I feel like I am only getting worse.". Coronavirus screen: Vaccine status: Patient reports receiving the 2nd dose of the covid vaccine. Coronavirus screen: Vaccine status: Patient reports receiving the 2nd dose of the covid vaccine. Moderna. Ebola Screen: Patient negative for fever greater than or equal to 101.5 degrees Fahrenheit, and additional compatible Ebola Virus Disease symptoms Patient denies exposure to infectious person. Patient denies travel to an Ebola-affected area in the 21 days before illness onset. Initial Sepsis Screen: Does the patient meet any 2 criteria? No. Patient's initial sepsis screen is negative. Does the patient have a suspected source of infection? Yes:. Risk Assessment: Do you want to hurt yourself or someone else? Patient reports no desire to harm self or others. Onset of symptoms is unknown. 06:15 Method Of Arrival: Ambulatory tw5 06:15 Acuity: PAZ 3 tw5 Triage Assessment: 06:20 General: Appears in no apparent distress. Behavior is calm, cooperative, appropriate tw5 for age. Pain: Pain currently is 3 out of 10 on a pain scale. Respiratory: Reports shortness of breath cough that is dry, hacking, persistent Onset: The symptoms/episode began/occurred gradually, the patient has mild shortness of breath. 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 - Social history:: Smoking status: Patient denies any tobacco usage or history of. Screenin:09 Abuse screen: Denies threats or abuse. Denies injuries from another. Nutritional corey screening: No deficits noted. Tuberculosis screening: No symptoms or risk factors identified. Fall Risk None identified. Assessment: 07:09 Cardiovascular: Rhythm is regular. corey 07:25 Respiratory: Airway is patent Respiratory effort is even, unlabored, Breath sounds are corey clear bilaterally. Vital Signs: 06:15 BP 143 / 84; Pulse 83; Resp 18; Temp 97.8; Pulse Ox 98% on R/A; Weight 117.93 kg; tw5 Height 5 ft. 8 in. (172.72 cm); Pain 3/10; 07:25 BP 127 / 98; Pulse 73; Resp 19; Pulse Ox 99% ; corey 08:56 BP 138 / 87; Pulse 65; Resp 17; Pulse Ox 100% on R/A; corey 06:15 Body Mass Index 39.53 (117.93 kg, 172.72 cm) tw5 ED Course: 06:01 Patient arrived in ED. ja2 06:20 Triage completed. tw5 06:20 Arm band placed on. tw5 07:04 Annabelle Casanova, RN is Primary Nurse. corey 07:05 Crystal Peterson MD is Attending Physician. sd2 07:09 Patient has correct armband on for positive identification. Bed in low position. corey 07:09 No provider procedures requiring assistance completed. corey 09:24 XRAY Chest Pa And Lat (2 Views) In Process Unspecified. EDMS 10:37 Assisted to bathroom. mb7 11:22 Patient did not have IV access during this emergency room visit. corey Administered Medications: No medications were administered Medication: 07:09 VIS not applicable for this client. corey Outcome: 11:14 Discharge ordered by . sd2 11:22 Discharged to home ambulatory. corey 11:22 Condition: good 11:22 Discharge instructions given to patient. 11:34 Patient left the ED. corey Signatures: Dispatcher [employer] ALYSAOR Nettie Hummel ja2 Celeste Barrazafany tw5 HarjeetKayla mb7 Annabelle Casanova RN RN ha Dunlop, Stephanie, MD MD sd2
[2022-01-30 11:48] VITALS: TEMP 97.8
[2022-01-30 11:55] VITALS: BP 138/87; O2SAT 100
== END 2022-01-30 11:34 | disposition home or self-care (01) ==
LOC: ER 05:57
DX: J40 Bronchitis, not specified as acute or chronic (principal); Z20.822 Contact with and (suspected) exposure to COVID-19; Z21 Asymptomatic human immunodeficiency virus [HIV] infection status; Z88.1 Allergy status to other antibiotic agents; Z88.3 Allergy status to other anti-infective agents; Z88.8 Allergy status to other drugs, medicaments and biological substances
CPT/HCPCS: 87070; 87081; 87804 ×2; 71046; 99283; U0003

== ENCOUNTER → 2023-09-09 | Emergency (ER) | payer BC, SELFPAY ==
--- OUTSIDE RECORDS SUMMARY | 2023-09-09 05:25 | XMS REPORT | Continuity of Care Document ---
Author Name Unknown Address [address] [place] [address] 1 [address] [place] [address] [facility] thconnect Address [address] [address] [address] [place] [address] Care Team Providers Care Rn Acute Dialysis Name Role Phone Pcp, Patient Does Not Have A Primary Care Physic liana [email or web address] Attending Clinician Unavailalonzo BRIONES Attending Clinician Unavailable Doctor Unassigned, [place] Attending Clinician U anna John Jr., MD, Timmy Brownlee Attending Clinician [phone] Roni GARCÍA, Ellen Gant Attending Clinician Unavail able JASON MACIAS Attending Clinician Unavailable Jason Macias MD Attending Clinician [phone] Chan Franklin MD Attending Clinician [phone] Vlad Vides DO Attending Clinician [phone] VLAD VIDES Attending Clinician Unavailable Nii Huynh Attending Clinician Unavailable Nii Huynh Attending Clinician Unavailable [email or web address]_Phoebe Admitting Clinician Unavaila esau BRIONES Admitting Clinician Unavailable JASON MACIAS Admitting Clinician Unavailable Jason Macias MD Admitting Clinician [phone] Nii Huynh Admitting Clinician Unavailable Payers Payer Name Policy Type Policy Number Effective Date Expirati on Date Source [place] [id number] 2022 00:00:00 Problems Condition Name Condition Details Condition Category Status Onset Date Resolution Date Last Treatment Date Treating Clinician Comments Source Rash Rash Disease Active 2020-07 00:00: 00 [facility] IBS (irritable bowel syndrome) IBS (irritable bowel syndrome) Disease Active 2020-07 00:00: 00 [facility] Lactic acidemia Lactic acidemia Disease Active 2020-07 00:00: 00 [facility] Urinary tract infection Urinary tract infection Disease Active 2020-07 00:00: 00 [facility] Sepsis Sepsis Disease Active 2020-07 00:00: 00 [facility] HIV (human immunodefi ciency virus infection) HIV (human immunodefi ciency virus infection) Disease Active 2020-07 00:00: 00 [facility] Diabetes mellitus Diabetes mellitus Disease Active 2020-07 00:00: 00 [facility] Urinary retention Urinary retention Disease Active 2020-07 00:00: 00 [facility] Morbid obesity with body mass index of 50 or higher Morbid obesity with body mass index of 50 or higher Disease Active 08-30 00:00: 00 [facility] Morbid obesity with body mass index of 40.0-49.9 Morbid obesity with body mass index of 40.0-49.9 Disease Active 08-30 00:00: 00 [facility] Allergies, Adverse Reactions, Alerts Allergy Name Allergy Type Status Severity Reaction(s) Onset Date Inactive Date Treating Clinician Comments Source BUPROPIO N DRUG INGREDI Active Rash 2020-07 00:00: 00 [facility] Bupropio n Propensi ty to adverse reaction s Active Rash 2020-07 00:00: 00 Suspected cause of AGEP 06/2021 [facility] Fish Containi ng Products Propensi ty to adverse reaction s Active Unknown - See comments 2020-07 00:00: 00 [facility] FISH CONTAINI NG PRODUCTS Drug Class Active Unknown-Cmnt 2020-07 00:00: 00 [facility] BANANA DRUG INGREDI Active Unknown-Cmnt 2020-07 00:00: 00 [facility] Banana Propensi ty to adverse reaction s Active Unknown - See comments 2020-07 00:00: 00 [facility] Fish Containi ng Products Propensi ty to adverse reaction s Active Unknown - See comments 2020-07 00:00: 00 [facility] Azithrom ycin Propensi ty to adverse reaction s Active Other - See comments 08-05 00:00: 00 Liver failure [facility] AZITHROM YCIN DRUG INGREDI Active Other-Cmnt 08-05 00:00: 00 [facility] ERYTHROM YCIN DRUG Active SOB 08-05 00:00: 00 [facility] Erythrom ycin Propensi ty to adverse reaction s Active Shortness of Breath 08-05 00:00: 00 [facility] CEPHALEX IN DRUG INGREDI Active N/V 08-05 00:00: 00 [facility] LATEX DRUG INGREDI Active ITCHING 08-05 00:00: 00 [facility] CEFTRIAX ONE SODIUM DRUG INGREDI Active N/V 08-05 00:00: 00 [facility] Cephalex in Propensi ty to adverse reaction s Active Nausea and/or Vomiting 08-05 00:00: 00 [facility] Latex Propensi ty to adverse reaction s Active Itching 08-05 00:00: 00 [facility] Ceftriax one Sodium Propensi ty to adverse reaction s Active Nausea and/or Vomiting 08-05 00:00: 00 [facility] antihist amines Drug Active [facility] antihist amines Drug Active [facility] Pepcid Drug Active [facility] Dilantin Drug Active [facility] Pepcid Drug Active [facility] Dilantin Drug Active [facility] antihist amines Drug Active [facility] Pepcid Drug Active [facility] Dilantin Drug Active [facility] antihist amines Drug Active [facility] Pepcid Drug Active [facility] Dilantin Drug Active [facility] antihist amines Drug Active [facility] Pepcid Drug Active [facility] Dilantin Drug Active [facility] Social History Social Habit Start Date Stop Date Quantity Comments [facility]2 (event) 2021-05-20 00:00:00 2021-06-19 19:11:00 Not sure [facility] History of Social function 2021-06-19 00:00:00 2021-06-19 00:00:00 [facility] Tobacco use and exposure 2021-06-19 00:00:00 2021-06-19 00:00:00 Smokeless tobacco non-user [facility] Alcohol intake 2021-06-19 00:00:00 2021-06-19 00:00:00 Current drinker of alcohol (finding) [facility] Sex Assigned At 1975 00:00:00 1975 00:00:00 [facility] Smoking Status Start Date Stop Date Source Never smoked tobacco [facility] Unknown if ever smoked [facility] Medications Ordered Medication Name Filled Medication Name Start Date Stop Date Current Medication? Ordering Clinician Indication Dosage Frequency Signature (SIG) Comments Components Source cetirizine (ZYRTEC) 10 mg tablet 2020-07 10:18: 49 Yes 20mg Take 20 mg by mouth daily. [facility] omeprazole 20 mg capsule 2020-07 10:18: 49 Yes 20mg Take 20 mg by mouth daily. [facility] cetirizine (ZYRTEC) 10 mg tablet 2020-07 10:18: 49 Yes 20mg Take 20 mg by mouth daily. [facility] omeprazole 20 mg capsule 2020-07 10:18: 49 Yes 20mg Take 20 mg by mouth daily. [facility] cetirizine (ZYRTEC) 10 mg tablet 2020-07 10:18: 49 Yes 20mg Take 20 mg by mouth daily. [facility] omeprazole 20 mg capsule 2020-07 10:18: 49 Yes 20mg Take 20 mg by mouth daily. [facility] cetirizine (ZYRTEC) 10 mg tablet 2020-07 10:18: 49 Yes 20mg Take 20 mg by mouth daily. [facility] omeprazole 20 mg capsule 2020-07 10:18: 49 Yes 20mg Take 20 mg by mouth daily. [facility] cetirizine (ZYRTEC) 10 mg tablet 2020-07 10:18: 49 Yes 20mg Take 20 mg by mouth daily. [facility] omeprazole 20 mg capsule 2020-07 10:18: 49 Yes 20mg Take 20 mg by mouth daily. [facility] cetirizine (ZYRTEC) 10 mg tablet 2020-07 10:18: 49 Yes 20mg Take 20 mg by mouth daily. [facility] omeprazole 20 mg capsule 2020-07 10:18: 49 Yes 20mg Take 20 mg by mouth daily. [facility] triamcinolo ne acetonide 0.1 % cream 2020-07 00:00: 00 Yes [id number] Apply to area(s) 2 (two) times daily. [facility] triamcinolo ne acetonide 0.1 % cream 2020-07 00:00: 00 Yes [id number] Apply to area(s) 2 (two) times daily. [facility] triamcinolo ne acetonide 0.1 % cream 2020-07 00:00: 00 Yes [id number] Apply to area(s) 2 (two) times daily. [facility] triamcinolo ne acetonide 0.1 % cream 2020-07 00:00: 00 Yes [id number] Apply to area(s) 2 (two) times daily. [facility] triamcinolo ne acetonide 0.1 % cream 2020-07 00:00: 00 Yes [id number] Apply to area(s) 2 (two) times daily. [facility] triamcinolo ne acetonide 0.1 % cream 2020-07 00:00: 00 Yes [id number] Apply to area(s) 2 (two) times daily. [facility] furosemide (LASIX) injection 20 mg 2020-07 00:00: 00 06-26 23:59 :00 No 20mg 20 mg, Slow IV Push, Q6H, 4 doses, First dose (after last reorder) on Tue06/25/21 at 1800, Last dose on Tue06/26/21 at 1200, Routine [facility] furosemide (LASIX) injection 20 mg 2020-07 00:00: 00 06-25 18:14 :00 No 20mg 20 mg, Slow IV Push, Q6H, 4 doses, First dose (after last reorder) on Tue06/24/21 at 1800, Last dose on Tue06/25/21 at 1200, Routine [facility] polyethylen e glycol 3350 powder 17 g 2020-07 22:15: 00 Yes 17g 17 g, Oral, DAILY, First dose (after last modificati on) on Tue06/24/21 at 1615, Until Discontinu ed, Routine [facility] phenazopyri dine (PYRIDIUM) tablet 200 mg 2020-07 20:00: 00 06-25 14:43 :00 No 200mg 200 mg, Oral, TID, 6 doses, First dose on Tue06/23/21 at 1400, Last dose on Tue06/25/21 at 0800, Routine [facility] furosemide (LASIX) injection 20 mg 2020-07 18:00: 00 06-24 12:00 :00 No 20mg 20 mg, Slow IV Push, Q6H, 4 doses, First dose on Tue06/23/21 at 1200, Last dose on Tue06/24/21 at 0600, Routine [facility] cetirizine (ZYRTEC) tablet 5 mg 2020-07 15:49: 57 Yes 5mg 5 mg, Oral, QHSPRN, Starting on Tue06/23/21 at 0949, Until Discontinu ed, Routine, Itching [facility] hydrOXYzine (ATARAX) tablet 25 mg 2020-07 15:43: 01 Yes 25mg 25 mg, Oral, Q6HPRN, Starting on Tue06/23/21 at 0943, Until Discontinu ed, Routine, Itching [facility] hydrOXYzine (ATARAX) tablet 10 mg 2020-07 20:30: 18 06-23 15:43 :21 No 10mg 10 mg, Oral, Q6HPRN, Starting on 06/22/21 at 1430, Until Tue06/23/21 at 0943, Routine, Itching [facility] triamcinolo ne acetonide (TRIDERM) 0.1 % cream 2020-07 02:00: 00 Yes Topical, BID, First dose on 06/20/21 at 2000, Until Discontinu ed, Routine [facility] acetaminoph en ADULT (OFIRMEV) injection 1,000 mg 2020-07 02:00: 00 06-21 02:11 :00 No 1000mg 1,000 mg, IV Infusion, Administer over 15 Minutes, Q12H, 2 doses, First dose on 06/20/21 at 2000, Last dose on Tue06/21/21 at 0800, Routine
Indicatio n: Non-periop erative Patient
Approved by: Per Policy (NPO Status) [facility] albumin (ALBUMINAR 25%) 25 % injection 25 g 2020-07 20:00: 00 06-20 19:17 :00 No 25g 25 g, IV Infusion, ONCE, 1 dose, On 06/20/21 at 1400, 100 mL
Silvia cation: NEPHROTIC SYNDROME (ACUTE, SEVERE PERIPHERAL OR PULMONARY EDEMA)
Comments: Short-term use of albumin in combinatio n with diuretic therapy when: serum albumin <2 g/dL and optimal diuretic therapy alone has failed [facility] ca acetate-alu m sulfate (DOMEBORO) TOPICAL packet 1 Packet 2020-07 17:45: 00 06-27 13:59 :00 No 1{packe t} 1 Packet, Topical, TID, 21 doses, First dose on 06/20/21 at 1145, Last dose on Tue06/26/21 at 2000, Routine [facility] bictegrav-e mtricit-ten ofov ala (BIKTARVY) 50-200-25 mg tablet 1 tablet 2020-07 15:00: 00 Yes 1{tbl} 1 tablet, Oral, DAILY, First dose on 06/20/21 at 0900, Until Discontinu ed, Routine [facility] multivitami n tablet 1 tablet 2020-07 15:00: 00 Yes 1{tbl} 1 tablet, Oral, DAILY, First dose on 06/20/21 at 0900, Until Discontinu ed, Routine [facility] lactated ringers IV infusion 1,000 mL 2020-07 15:00: 00 06-22 22:12 :48 No 1000mL at 150 mL/hr, 1,000 mL, IV Infusion, CONTINUOUS , Starting on 06/20/21 at 0900, Until Tue06/22/21 at 1612, Routine [facility] albumin (ALBUTEIN 5 %) 5 % injection 25 g 2020-07 10:30: 00 06-20 09:29 :00 No 25g 25 g, IV Infusion, ONCE, 1 dose, On 06/20/21 at 0430, 500 mL
Silvia cation: SEVERE SEPSIS AND SEPTIC SHOCK
C omments: First-line therapy: Crystalloi ds. Albumin in fluid resuscitat ion when patient requires substantia l amounts of crystalloi ds. [facility] lactated ringers IV infusion 500 mL 2020-07 10:00: 00 06-20 16:46 :00 No 500mL at 999 mL/hr, 500 mL, Intravenou s, ONCE, 1 dose, On 06/20/21 at 0400, Routine [facility] lactated ringers IV infusion 500 mL 2020-07 08:50: 00 06-20 09:00 :00 No 500mL at 999 mL/hr, 500 mL, Intravenou s, ONCE, 1 dose, On 06/20/21 at 0300, Routine [facility] lactated ringers IV infusion 500 mL 2020-07 07:00: 00 06-20 07:04 :00 No 500mL at 999 mL/hr, 500 mL, Intravenou s, ONCE, 1 dose, On Tue06/20/21 at 0100, Routine [facility] zinc sulfate (ORAZINC) capsule 220 mg 2020-07 02:00: 00 Yes 220mg 220 mg, Oral, TID, First dose on Tue06/19/21 at 2000, Until Discontinu ed, Routine [facility] ascorbic acid (vitamin C) (VITAMIN C) tablet 500 mg 2020-07 02:00: 00 Yes 500mg 500 mg, Oral, BID, First dose on Tue06/19/21 at 2000, Until Discontinu ed, Routine [facility] chlorhexidi ne (PERIDEX) 0.12 % mouthwash 15 mL 2020-07 02:00: 00 Yes 15mL 15 mL, Oral (Swish And Spit Out), BID, First dose on Tue06/19/21 at 2000, Until Discontinu ed, Routine [facility] magnesium sulfate in water 4 gram/50 mL (8 %) IV Piggyback 4 g 2020-07 00:30: 00 06-20 02:20 :00 No 4g 4 g, IV Piggyback, ONCE, 1 dose, On Tue06/19/21 at 1830, Routine [facility] Sliding Scale Insulin-Reg ular + Fsbg Testing 2020-07 00:00: 00 Yes Subcutaneo us, Q6H, First dose on Tue06/19/21 at 1800, Until Discontinu ed, Routine [facility] enoxaparin (LOVENOX) injection 40 mg 2020-07 23:00: 00 Yes 40mg 40 mg, Subcutaneo us, DAILY, First dose on Tue06/19/21 at 1700, Until Discontinu ed, Routine [facility] ceFEPIme (MAXIPIME) 2,000 mg in NaCl 0.9% (NS) 100 mL MINI-BAG 2020-07 23:00: 00 06-25 17:37 :00 No 2000mg 2,000 mg, IV Piggyback, Q12H ABX, First dose on Tue06/19/21 at 1700, Until Discontinu ed, Administer over 30 Minutes, 100 mL
Reas on for Anti-Infec tive: Empiric Therapy for Suspected Infection< br>Empiric Therapy Site: Other
O ther site: skin/soft tissue, urinary tract infection< br>Duratio n of therapy: 7 days [facility] lactated ringers IV infusion 1,000 mL 2020-07 22:45: 00 06-19 22:52 :00 No 1000mL at 999 mL/hr, 1,000 mL, Intravenou s, ONCE, 1 dose, On Tue06/19/21 at 1645, Routine [facility] FENTanyl PF (SUBLIMAZE (PF)) injection 50 mcg 2020-07 21:49: 48 Yes 50ug 50 mcg, Slow IV Push, Q5MIN PRN, 3 doses, Starting on Tue06/19/21 at 1549, Until Discontinu ed, Routine, tube room [facility] ondansetron (ZOFRAN (PF)) injection 4 mg 2020-07 21:48: 41 Yes 4mg 4 mg, Slow IV Push, Q6HPRN, Starting on Tue06/19/21 at 1548, Until Discontinu ed, Routine, Nausea and Vomiting (N/V) [facility] morpHINE injection 2 mg 2020-07 21:48: 03 Yes 2mg 2 mg, Slow IV Push, Q4HPRN, Starting on Tue06/19/21 at 1548, Until Discontinu ed, Routine, Pain (scale 7-10) [facility] HYDROcodone -acetaminop hen (NORCO 5) 5-325 mg tablet 1 tablet 2020-07 21:47: 51 Yes 1{tbl} 1 tablet, Oral, Q6HPRN, Starting on Tue06/19/21 at 1547, Until Discontinu ed, Routine, Pain (scale 4-6) [facility] acetaminoph en (TYLENOL) tablet 650 mg 2020-07 21:47: 51 Yes 650mg 650 mg, Oral, Q6HPRN, Starting on Tue06/19/21 at 1547, Until Discontinu ed, Routine, Pain (scale 1-3) [facility] vancomycin (VANCOCIN) 1,000 mg in NaCl 0.9% (NS) 250 mL VIAL-MATE IV piggyback 2020-07 21:45: 00 06-23 15:54 :29 No 1000mg 1,000 mg, IV Piggyback, Q12H ABX, First dose on Tue06/19/21 at 1545, Until Discontinu ed, Administer over 60 Minutes, 250 mL
Reas on for Anti-Infec tive: Empiric Therapy for Suspected Infection< br>Empiric Therapy Site: Skin / Soft tissue
Duration of therapy: 7 days [facility] pantoprazol e (PROTONIX) injection 40 mg 2020-07 21:45: 00 06-21 22:21 :00 No [id number] 40mg 40 mg, Slow IV Push, Q24H, 3 doses, First dose on Tue06/19/21 at 1545, Last dose on Tue06/21/21 at 1545 [facility] D5W 0.45% NaCl (1/2NS) 1 L + KCL 20 mEq 2020-07 21:45: 00 06-20 13:47 :19 No IV Infusion, at 100 mL/hr, CONTINUOUS , Starting on Tue06/19/21 at 1545, Until 06/20/21 at 0747, Routine [facility] glucagon (GLUCAGEN DIAGNOSTIC KIT) injection 1 mg 2020-07 21:38: 47 Yes 1mg 1 mg, Intramuscu lar, PRN, Starting on Tue06/19/21 at 1538, Until Discontinu ed, DONNIE, Blood Glucose < or = 70 mg/dL and patient is unable to swallow or has mental changes. [facility] dextrose 50 % in water (D50W) injection 25 mL 2020-07 21:38: 47 Yes 25mL 25 mL, Slow IV Push, PRN, Starting on Tue06/19/21 at 1538, Until Discontinu ed, DONNIE, Blood Glucose < or = 70 mg/dL and patient is unable to swallow or has mental status changes. [facility] cetirizine (ZYRTEC) 10 mg tablet 2020-07 15:46: 14 Yes 20mg Take 20 mg by mouth daily. [facility] omeprazole 20 mg capsule 2020-07 15:46: 14 Yes 20mg Take 20 mg by mouth daily. [facility] naproxen sodium (ANAPROX DS) 550 mg tablet 2019-07 00:00: 00 Yes [id number] 550mg Take 1 tablet by mouth 2 (two) times daily with meals. [facility] methylPREDN ISolone (MEDROL, JOY,) 4 mg tablets 2019-07 00:00: 00 Yes [id number] Take by mouth SEE-INSTRU CTIONS. follow package directions [facility] naproxen sodium (ANAPROX DS) 550 mg tablet 2019-07 00:00: 00 Yes [id number] 550mg Take 1 tablet by mouth 2 (two) times daily with meals. [facility] methylPREDN ISolone (MEDROL, JOY,) 4 mg tablets 2019-07 00:00: 00 Yes [id number] Take by mouth SEE-INSTRU CTIONS. follow package directions [facility] naproxen sodium (ANAPROX DS) 550 mg tablet 2019-07 00:00: 00 Yes [id number] 550mg Take 1 tablet by mouth 2 (two) times daily with meals. [facility] methylPREDN ISolone (MEDROL, JOY,) 4 mg tablets 2019-07 00:00: 00 Yes [id number] Take by mouth SEE-INSTRU CTIONS. follow package directions [facility] naproxen sodium (ANAPROX DS) 550 mg tablet 2019-07 00:00: 00 Yes [id number] 550mg Take 1 tablet by mouth 2 (two) times daily with meals. [facility] methylPREDN ISolone (MEDROL, JOY,) 4 mg tablets 2019-07 00:00: 00 Yes [id number] Take by mouth SEE-INSTRU CTIONS. follow package directions [facility] naproxen sodium (ANAPROX DS) 550 mg tablet 2019-07 00:00: 00 Yes [id number] 550mg Take 1 tablet by mouth 2 (two) times daily with meals. [facility] methylPREDN ISolone (MEDROL, JOY,) 4 mg tablets 2019-07 00:00: 00 Yes [id number] Take by mouth SEE-INSTRU CTIONS. follow package directions [facility] naproxen sodium (ANAPROX DS) 550 mg tablet 2019-07 00:00: 00 Yes [id number] 550mg Take 1 tablet by mouth 2 (two) times daily with meals. [facility] methylPREDN ISolone (MEDROL, JOY,) 4 mg tablets 2019-07 00:00: 00 Yes [id number] Take by mouth SEE-INSTRU CTIONS. follow package directions [facility] naproxen sodium (ANAPROX DS) 550 mg tablet 2019-07 00:00: 00 Yes [id number] 550mg Take 1 tablet by mouth 2 (two) times daily with meals. [facility] methylPREDN ISolone (MEDROL, JOY,) 4 mg tablets 2019-07 00:00: 00 Yes [id number] Take by mouth SEE-INSTRU CTIONS. follow package directions [facility] naproxen sodium (ANAPROX DS) 550 mg tablet 2019-07 00:00: 00 Yes [id number] 550mg Take 1 tablet by mouth 2 (two) times daily with meals. [facility] methylPREDN ISolone (MEDROL, JOY,) 4 mg tablets 2019-07 00:00: 00 Yes [id number] Take by mouth SEE-INSTRU CTIONS. follow package directions [facility] methocarbam oL 500 mg tablet 2019-07 00:00: 00 05-27 05:59 :00 No [id number] 500mg Take 1 tablet by mouth 3 (three) times daily for 5 days. [facility] cetirizine (ZYRTEC) 10 mg tablet 08-30 19:00: 58 Yes 20mg Take 20 mg by mouth daily. [facility] omeprazole 20 mg capsule 08-30 19:00: 58 Yes 20mg Take 20 mg by mouth daily. [facility] clindamycin 300 mg capsule 08-30 00:00: 00 Yes 300mg Take 1 capsule by mouth 4 (four) times daily. [facility] clindamycin 300 mg capsule 08-30 00:00: 00 Yes 300mg Take 1 capsule by mouth 4 (four) times daily. [facility] clindamycin 300 mg capsule 08-30 00:00: 00 Yes 300mg Take 1 capsule by mouth 4 (four) times daily. [facility] clindamycin 300 mg capsule 08-30 00:00: 00 Yes 300mg Take 1 capsule by mouth 4 (four) times daily. [facility] clindamycin 300 mg capsule 08-30 00:00: 00 Yes 300mg Take 1 capsule by mouth 4 (four) times daily. [facility] clindamycin 300 mg capsule 08-30 00:00: 00 Yes 300mg Take 1 capsule by mouth 4 (four) times daily. [facility] clindamycin 300 mg capsule 08-30 00:00: 00 Yes 300mg Take 1 capsule by mouth 4 (four) times daily. [facility] clindamycin 300 mg capsule 08-30 00:00: 00 Yes 300mg Take 1 capsule by mouth 4 (four) times daily. [facility] clotrimazol e-betametha sone (LOTRISONE) cream 08-05 00:00: 00 Yes Apply to area(s) 2 (two) times daily. [facility] Nitrofurant oin&Nit. Macrocryst (MACROBID) 100 mg capsule 08-05 00:00: 00 Yes 100mg Take 1 Cap by mouth 2 (two) times daily. [facility] clotrimazol e-betametha sone (LOTRISONE) cream 08-05 00:00: 00 Yes Apply to area(s) 2 (two) times daily. [facility] Nitrofurant oin&Nit. Macrocryst (MACROBID) 100 mg capsule 08-05 00:00: 00 Yes 100mg Take 1 Cap by mouth 2 (two) times daily. [facility] clotrimazol e-betametha sone (LOTRISONE) cream 08-05 00:00: 00 Yes Apply to area(s) 2 (two) times daily. [facility] Nitrofurant oin&Nit. Macrocryst (MACROBID) 100 mg capsule 08-05 00:00: 00 Yes 100mg Take 1 Cap by mouth 2 (two) times daily. [facility] clotrimazol e-betametha sone (LOTRISONE) cream 08-05 00:00: 00 Yes Apply to area(s) 2 (two) times daily. [facility] Nitrofurant oin&Nit. Macrocryst (MACROBID) 100 mg capsule 08-05 00:00: 00 Yes 100mg Take 1 Cap by mouth 2 (two) times daily. [facility] clotrimazol e-betametha sone (LOTRISONE) cream 08-05 00:00: 00 Yes Apply to area(s) 2 (two) times daily. [facility] Nitrofurant oin&Nit. Macrocryst (MACROBID) 100 mg capsule 08-05 00:00: 00 Yes 100mg Take 1 Cap by mouth 2 (two) times daily. [facility] clotrimazol e-betametha sone (LOTRISONE) cream 08-05 00:00: 00 Yes Apply to area(s) 2 (two) times daily. [facility] Nitrofurant oin&Nit. Macrocryst (MACROBID) 100 mg capsule 08-05 00:00: 00 Yes 100mg Take 1 Cap by mouth 2 (two) times daily. [facility] clotrimazol e-betametha sone (LOTRISONE) cream 08-05 00:00: 00 Yes Apply to area(s) 2 (two) times daily. [facility] Nitrofurant oin&Nit. Macrocryst (MACROBID) 100 mg capsule 08-05 00:00: 00 Yes 100mg Take 1 Cap by mouth 2 (two) times daily. [facility] clotrimazol e-betametha sone (LOTRISONE) cream 08-05 00:00: 00 Yes Apply to area(s) 2 (two) times daily. [facility] Nitrofurant oin&Nit. Macrocryst (MACROBID) 100 mg capsule 08-05 00:00: 00 Yes 100mg Take 1 Cap by mouth 2 (two) times daily. [facility] Vital Signs Vital Name Observation Time Observation Value Comments S ource Systolic blood pressure 2021-06-26 14:00:00 129 mm[Hg] [facility] Diastolic blood pressure 2021-06-26 14:00:00 75 mm[Hg] [facility] Heart rate 2021-06-26 14:00:00 82 /min [facility] Body temperature 2021-06-26 14:00:00 36.44 Shaneka [facility] Respiratory rate 2021-06-26 14:00:00 18 /min [facility] Oxygen saturation in Arterial blood by Pulse oximetry 2021-06-26 14:00:00 95 /min [facility] Body height 2021-06-22 17:00:00 167.6 cm [facility] Body weight 2021-06-22 17:00:00 133.3 kg [facility] BMI 2021-06-22 17:00:00 47.46 kg/m2 [facility] Systolic blood pressure 2020-05-21 15:10:00 154 mm[Hg] [facility] Diastolic blood pressure 2020-05-21 15:10:00 97 mm[Hg] [facility] Heart rate 2020-05-21 15:10:00 99 /min [facility] Body temperature 2020-05-21 15:10:00 36.44 Shaneka [facility] Respiratory rate 2020-05-21 15:10:00 18 /min [facility] Body height 2020-05-21 15:10:00 167.6 cm [facility] Body weight 2020-05-21 15:10:00 123.832 kg [facility] BMI 2020-05-21 15:10:00 44.06 kg/m2 [facility] Oxygen saturation in Arterial blood by Pulse oximetry 2020-05-21 15:10:00 97 /min [facility] Procedures Procedure Date / Time Performed Performing Clinician Source AUTHORIZATION FOR RELEASE OF PHI 2021-12-29 05:01:00 Doctor Unassigned, [place] [facility] EXTERNAL PROVIDER RECORDS 2021-07-14 06:01:00 Do ctor Unassigned, [place] [facility] PHOSPHORUS 2021-06-26 11:43:00 Oc Ramirez [facility] MAGNESIUM 2021-06-26 11:43:00 [facility] BASIC METABOLIC PANEL (NA, K, CL, CO2, GLUCOSE, BUN, CREATININE, CA) 2021-06-26 11:43:00 James [facility] CBC WITHOUT DIFF 2021-06-26 11:43:00 [facility] 2021-06-25 23:59:00 Denny [facility] POCT GLUCOSE (AUTOMATED) 2021-06-25 17:53:00 Denny [facility] POCT GLUCOSE (AUTOMATED) 2021-06-25 06:12:00 Denny [facility] POCT GLUCOSE (AUTOMATED) 2021-06-24 23:14:00 Denny [facility] POCT GLUCOSE (AUTOMATED) 2021-06-24 17:52:00 Denny [facility] POCT GLUCOSE (AUTOMATED) 2021-06-24 11:59:00 Ridge Macias [facility] PHOSPHORUS 2021-06-24 10:51:00 Jair Hernandez [facility] MAGNESIUM 2021-06-24 10:51:00 Farhana Hernandezgilma [facility] BASIC METABOLIC PANEL (NA, K, CL, CO2, GLUCOSE, BUN, CREATININE, CA) 2021-06-24 10:51:00 [facility] 2021-06-24 10:51:[address] [facility] POCT GLUCOSE (AUTOMATED) 2021-06-24 06:15:00 Denny [facility] POCT GLUCOSE (AUTOMATED) 2021-06-24 02:01:00 Denny [facility] POCT GLUCOSE (AUTOMATED) 2021-06-23 23:10:00 Denny [facility] POCT GLUCOSE (AUTOMATED) 2021-06-23 17:26:00 Denny [facility] POCT GLUCOSE (AUTOMATED) 2021-06-23 11:32:00 Denny [facility] PHOSPHORUS 2021-06-23 10:04:00 [facility] MAGNESIUM 2021-06-23 10:04:00 Jair Hernandez [facility] BASIC METABOLIC PANEL (NA, K, CL, CO2, GLUCOSE, BUN, CREATININE, CA) 2021-06-23 10:04:00 Jair Hernandez [facility] VANCOMYCIN TROUGH 2021-06-23 10:04:00 Mick Schumacher [facility] CBC WITHOUT DIFF 2021-06-23 10:04:[address] [facility] LACTIC ACID WHOLE BLOOD 2021-06-23 10:04:00 Sarah Colon [facility] HUMAN IMMUNODEFICIENCY VIRUS 1 (HIV-1) BY QUANTITATIVE NAAT 2021-06-23 10:04:00 [facility]ATED) 2021-06-23 06:11:00 Denny [facility] LACTIC ACID WHOLE BLOOD 2021-06-23 00:24:00 [facility] 2021-06-22 23:08:00 Denny [facility] POCT GLUCOSE (AUTOMATED) 2021-06-22 18:19:00 Denny [facility] CD4 SUBSET ASSAY 2021-06-22 17:53:00 Marija Nash [facility] MYCOPLASMA PNEUMONIAE ANTIBODY, IGM 2021-06-22 17:50:00 David [facility] LACTIC ACID WHOLE BLOOD 2021-06-22 17:50:00 Salazar rosado [facility] XR CHEST 1 VW 2021-06-22 14:32:00 David [facility] AC VBG + LACTIC ACID 2021-06-22 11:21:00 [facility] 2021-06-22 11:20:00 David [facility] MAGNESIUM 2021-06-22 11:20:00 David [facility] COMP. METABOLIC PANEL ([id number]) 2021-06-22 11:20:00 Daivd [facility] CBC WITH DIFF 2021-06-22 11:20:00 David [facility] POCT GLUCOSE (AUTOMATED) 2021-06-22 11:18:00 Denny [facility] POCT GLUCOSE (AUTOMATED) 2021-06-22 05:35:00 Denny [facility] POCT GLUCOSE (AUTOMATED) 2021-06-22 00:34:00 Denny [facility] POCT GLUCOSE (AUTOMATED) 2021-06-21 17:53:00 Denny [facility] POCT GLUCOSE (AUTOMATED) 2021-06-21 11:02:00 Denny [facility] LACTIC ACID WHOLE BLOOD 2021-06-21 09:49:00 [facility] 2021-06-21 09:44:00 [facility] 2021-06-21 09:44:00 David [facility] COMP. METABOLIC PANEL ([id number]) 2021-06-21 09:44:00 [facility] VANCOMY[facility]IN [facility]OUGH 2021-06-21 09:44:00 Clark Echols [facility] CBC WITHOUT DIFF 2021-06-21 09:44:00 [facility]LO[facility] 2021-06-21 05:12:00 [facility] POCT GLUCOSE (AUTOMATED) 2021-06-21 05:11:00 Denny [facility] POCT GLUCOSE (AUTOMATED) 2021-06-20 23:55:00 Ridge Macias [facility] LACTIC ACID WHOLE BLOOD 2021-06-20 22:14:00 David [facility] LACTIC ACID WHOLE BLOOD 2021-06-20 18:18:00 David [facility] BASIC METABOLIC PANEL (NA, K, CL, CO2, GLUCOSE, BUN, CREATININE, CA) 2021-06-20 18:17:00 David [facility] POCT GLUCOSE (AUTOMATED) 2021-06-20 18:01:00 Ridge Macias [facility] POCT GLUCOSE (AUTOMATED) 2021-06-20 10:46:00 Ridge Macias [facility] PHOSPHORUS 2021-06-20 10:43:00 Clark Echols [facility] MAGNESIUM 2021-06-20 10:43:00 Onesimo [facility] HEPATIC FUNCTION PANEL ([id number]) (ALB,T.PRO,BILI T,BU/BC,ALT,AST,ALK PHOS) 2021-06-20 10:43:00 Sarah Schumacher [facility] BASIC METABOLIC PANEL (NA, K, CL, CO2, GLUCOSE, BUN, CREATININE, CA) 2021-06-20 10:43:00 Onesimo [facility] CBC WITH DIFF 2021-06-20 10:43:00 Clark Echols [facility] POCT GLUCOSE (AUTOMATED) 2021-06-20 05:37:00 Ridge Macias [facility] LACTIC ACID WHOLE BLOOD 2021-06-20 05:30:00 Rabia Echols [facility] URINE CULTURE 2021-06-19 23:12:00 Onesimo [facility] LACTIC ACID WHOLE BLOOD 2021-06-19 22:31:00 Rabia Echols [facility] PHOSPHORUS 2021-06-19 22:30:00 Onesimo [facility] MAGNESIUM 2021-06-19 22:30:00 Onesimo [facility] IONIZED CALCIUM 2021-06-19 22:30:00 Clark Echols [facility] BASIC METABOLIC PANEL (NA, K, CL, CO2, GLUCOSE, BUN, CREATININE, CA) 2021-06-19 22:30:00 Onesimo [facility] CBC WITH DIFF 2021-06-19 22:30:00 Clark Echols [facility] HB ABO GROUPING 2021-06-19 22:30:00 Clark Echols [facility] MRSA / MSSA SCREEN BY PCRRAY 2021-06-19 22:30:00 Onesimo [facility] POCT GLUCOSE (AUTOMATED) 2021-06-19 22:25:00 Ridge Macias [facility] MEMORANDUM OF TRANSFER (MOT) 2021-06-19 06:01:00 Doctor Unassigned, [place] [facility] XR HIPS 3 VW RIGHT 2020-05-21 15:55:59 Vlad Vides [facility] XR KNEE <3 VW RIGHT 2020-05-21 15:55:59 Kierra Vides [facility] Encounters Start Date/Time End Date/Time Encounter Type Admission Type Attending Clinicians Care Facility Care Department Encounter ID Source 2023-05-29 00:00:00 2023-05-29 00:00:00 Outpatient GC_GCBZW_Ka diyala_S PRIV PRIV [id number] [facility] 2023-04-26 00:00:00 2023-04-26 00:00:00 Outpatient GC_GCBZW_Ka diyala_S PRIV PRIV [id number] [facility] 2023-04-26 00:00:00 2023-04-26 00:00:00 Outpatient GC_GCBZW_Ka diyala_S PRIV PRIV [id number] [facility] 2022-01-13 11:14:00 2022-01-13 11:14:00 Outpatient MICHAEL_JO HN [facility] [id number] [facility] 2021-12-29 00:00:00 2021-12-29 00:00:00 Orders Only Doctor Unassigned, [place] [facility] 1.0.114 350.1.13.10 4.2.7.2.686 [id number] [facility] 2021-08-04 00:00:00 2021-08-04 00:00:00 Telephone Timmy John [facility] 1..114 350.1.13.10 4.2.7.2.686 [id number] [facility] 2021-07-14 00:00:00 2021-07-14 00:00:00 Orders Only Doctor Unassigned, [place] [facility] 1..114 350.1.13.10 4.2.7.2.686 [id number] [facility] 2021-06-29 00:00:00 2021-06-29 00:00:00 Transition of Care Ellen Tamayo 1..840.114 350.1.13.10 4.2.7.2.686 [id number] [facility] 2021-06-19 15:45:00 2021-06-26 10:18:00 Inpatient U JASON MACIAS [facility] SBU [id number] [facility] 2021-06-19 15:45:00 2021-06-26 10:18:00 Hospital Encounter Jason Macias [facility] 1.2.840.114 350.1.13.10 4.2.7.2.686 [id number] [facility] 2021-06-23 00:00:00 2021-06-23 00:00:00 Patient Secure Msg Doctor Unassigned, [place] [facility] 1.2.840.114 350.1.13.10 4.2.7.2.686 [id number] [facility] 2021-06-22 10:26:00 2021-06-22 23:59:00 Hospital Encounter Chan Franklin Jason Macias [facility] 1.2.840.114 350.1.13.10 4.2.7.2.686 [id number] [facility] 2020-05-21 09:13:00 2020-05-21 10:22:00 Emergency VidesVlad [facility] 1.2.840.114 350.1.13.10 4.2.7.2.686 [id number] [facility] 2020-05-21 09:13:00 2020-05-21 09:13:00 Emergency X SINGER VLAD [facility] ERT [id number] [facility] 2019-08-24 19:15:00 2019-08-24 19:15:00 Emergency Nii Huynh Amir [facility] [id number] [facility] 2019-08-24 19:15:00 2019-08-24 19:15:00 Emergency Nii Huynh Amir [facility] [id number] [facility] Results Test Description Test Time Test Comments Results Result Co mments Source [facility] 12:22:03* Test Item Value Reference Range Interpretation Comme nts MAGNESIUM (test code = 6702674086) 2.1 mg/dL 1.7-2.4 Lab Interpretation (test cod e = 46393-1) Normal [facility]21[facility]24 12:22:03* Test Item Value Reference Range Interpretation Comme nts PHOSPHORUS (test code = 8622217021) 4.5 mg/dL 2.5-5.0 Lab Interpretation (test cod e = 31715-4) Normal [facility] [id number] 12:00:40* Test Item Value Reference Range Interpretation Comme nts WBC (test code = 6690-2) See_Comment H [Automated message] The system which generated this result transmitted reference range: 4.30 - 11.10 10*3/?L. The reference range was not used to interpret this result as normal/abnormal. RBC (test code = 789-8) See_Comment L [Automated message] The system which generated this result transmitted reference range: 3.93 - 5.25 10*6/?L. The reference range was not used to interpret this result as normal/abnormal. HGB (test code = 718-7) 11.3 g/dL 11.6-15.0 L HCT (test code = 4544-3) 34.4 % 35.7-45.2 L MCH (test code = 785-6) 30.3 pg 25.9-32.8 MCV (test code = 787-2) 92.2 fL 80.6-95.5 MCHC (test code = 786-4) 32.8 g/dL 31.6-35.1 PLT (test code = 777-3) See_Comment [Automated message] The system which generated this result transmitted reference range: 166 - 358 10*3/?L. The reference range was not used to interpret this result as normal/abnormal. MPV (test code = 25089-3) 8.5 fL 9.5-12.9 L RDW-CV (test code = 788-0) 13.8 % 12.0-15.5 RDW-SD (test code = 43653-8) 46.3 fL 39.0-49.9 NRBC x10^3 (test code = 1717857611) <0.01 See_Comment [Automated Responde Aia ge] The system which generated this result transmitted reference range: 10*3/?L. The reference range was not used to interpret this result as normal/abnormal. NRBC/100 WBC (test code = 7625443291) See_Comment [Automated Responde Aia BrightWhistle] The system which generated this result transmitted reference range: 0.0 - 10.0 /100 WBCs. The reference range was not used to interpret this result as normal/abnormal. IPF % (test code = 9346899479) Lab Interpretation (test code = 31223-7) Abnormal [facility] GLUCOSE (AUTOMATED)2021-06-26 00:04:01* Test Item Value Reference Range Interpretation Comme nts POCT GLU (test code = 3312692438) 173 mg/dL 70-110 H Lab Interpretation (test cod e = 01117-2) Abnormal [facility] GLUCOSE (AUTOMATED)2021-06-25 17:55:35* Test Item Value Reference Range Interpretation Comme nts POCT GLU (test code = 1050873335) 145 mg/dL 70-110 H Lab Interpretation (test cod e = 20541-1) Abnormal [facility] GLUCOSE (AUTOMATED)2021-06-25 06:15:45* Test Item Value Reference Range Interpretation Comme nts POCT GLU (test code = 5612072036) 135 mg/dL 70-110 H Lab Interpretation (test cod e = 64040-7) Abnormal [facility] GLUCOSE (AUTOMATED)2021-06-24 23:16:03* Test Item Value Reference Range Interpretation Comme nts POCT GLU (test code = 9501897699) 110 mg/dL 70-110 Lab Interpretation (test cod e = 77443-6) Normal [facility] PNEUMON[facility]E ANTIBODY, [id number] 20:37:47* Test Item Value Reference Range Interpretation Comme nts Mycoplasma IGM (test code = 5256-3) 0.18 U/L See_Comment INTERPRETIVE INFORMATION: ?Mycoplasma pneumoniae Ab, IgM ?0.76 U/L or less .......... Negative: No clinically ?significant amount of ?M. pneumoniae IgM antibody ?detected. ?0.77 - 0.95 U/L ........... Low Positive: M. pneumoniae- ?specific IgM presumptively ?detected. Collection of a ?follow-up sample in 1-2 ?weeks is recommended to ?assure reactivity. ?0.96 U/L or greater ....... Positive: Highly significant ?amount of M. pneumoniae- ?specific IgM antibody ?detected. However, low levels ?of IgM antibodies may ?occasionally persist for more ?than 12 months post-infection.Performed By: [facility] [place] [id number] Director: Nirmala Layton MD [Automated message] The system which generated this result transmitted reference range: <=0.76. The reference range was not used to interpret this result as normal/abnormal. [facility] GLUCOSE (AUTOMATED)2021-06-24 17:53:24* Test Item Value Reference Range Interpretation Comme [facility] POCT GLU (test code = 1903296293) 120 mg/dL 70-110 H Lab Interpretation (test cod e = 67557-6) Abnormal [facility] GLUCOSE (AUTOMATED)2021-06-24 12:00:41* Test Item Value Reference Range Interpretation Comme nts POCT GLU (test code = 0773006451) 152 mg/dL 70-110 H Lab Interpretation (test cod e = 59195-3) [facility] (NA, K, CL, CO2, GLUCOSE, BUN, CREATININE, CA)2021-06-24 11:54:18* Test Item Value Reference Range Interpretation Comme nts NA (test code = 8996986887) 134 mmol/L 135-145 L K (test code = 2596581556) 3.5 mmol/L 3.5-5.0 CL (test code = 5747705026) 105 mmol/L 98-108 CO2 TOTAL (test code = 0338117783) 24 mmol/L 23-31 AGAP (test code = 8837981393) 2-16 BUN (test code = 1402385711) 20 mg/dL 7-23 GLUCOSE (test code = 4295028783) 191 mg/dL 70-110 H CREATININE (test code = 5297621228) 0.77 mg/dL 0.50-1.04 CALCIUM (test code = 2534551123) 7.7 mg/dL 8.6-10.6 L eGFR (test code = 5163798966) mL/min/1.73m2 ANA (test code = ANA) Association [...] imaging tests). Lab Interpretation (test code = 07748-9) [facility] 11:54:18* Test Item Value Reference Range Interpretation Comme nts PHOSPHORUS (test code = 7322587746) 3.4 mg/dL 2.5-5.0 Lab Interpretation (test cod e = 02556-2) Normal [facility]22 11:54:18* Test Item Value Reference Range Interpretation Comme nts MAGNESIUM (test code = 8719151786) 2.0 mg/dL 1.7-2.4 Lab Interpretation (test cod e = 13188-6) Normal [facility] [id number] 11:12:33* Test Item Value Reference Range Interpretation Comme nts WBC (test code = 6690-2) See_Comment H [Automated message] The system which generated this result transmitted reference range: 4.30 - 11.10 10*3/?L. The reference range was not used to interpret this result as normal/abnormal. RBC (test code = 789-8) See_Comment L [Automated message] The system which generated this result transmitted reference range: 3.93 - 5.25 10*6/?L. The reference range was not used to interpret this result as normal/abnormal. HGB (test code = 718-7) 10.2 g/dL 11.6-15.0 L HCT (test code = 4544-3) 30.3 % 35.7-45.2 L MCH (test code = 785-6) 30.6 pg 25.9-32.8 MCV (test code = 787-2) 91.0 fL 80.6-95.5 MCHC (test code = 786-4) 33.7 g/dL 31.6-35.1 PLT (test code = 777-3) See_Comment [Automated message] The system which generated this result transmitted reference range: 166 - 358 10*3/?L. The reference range was not used to interpret this result as normal/abnormal. MPV (test code = 92744-9) 8.9 fL 9.5-12.9 L RDW-CV (test code = 788-0) 14.5 % 12.0-15.5 RDW-SD (test code = 29482-7) 47.9 fL 39.0-49.9 NRBC x10^3 (test code = 8373926332) See_Comment [Automated messa ge] The system which generated this result transmitted reference range: 10*3/?L. The reference range was not used to interpret this result as normal/abnormal. NRBC/100 WBC (test code = 7371576178) See_Comment [Automated messa ge] The system which generated this result transmitted reference range: 0.0 - 10.0 /100 WBCs. The reference range was not used to interpret this result as normal/abnormal. IPF % (test code = 4631577028) Lab Interpretation (test code = 23998-5) Abnormal [facility] GLUCOSE (AUTOMATED)2021-06-24 06:19:32* Test Item Value Reference Range Interpretation Comme nts POCT GLU (test code = 6933144352) 275 mg/dL 70-110 H Lab Interpretation (test cod e = 15784-1) Abnormal [facility] GLUCOSE (AUTOMATED)2021-06-24 02:05:55* Test Item Value Reference Range Interpretation Comme nts POCT GLU (test code = 6158527678) 175 mg/dL 70-110 H Lab Interpretation (test cod e = 71416-2) Abnormal [facility] GLUCOSE (AUTOMATED)2021-06-23 23:20:29* Test Item Value Reference Range Interpretation Comme nts POCT GLU (test code = 0407588665) 173 mg/dL 70-110 H Lab Interpretation (test cod e = 53562-4) Abnormal [facility] IMMUNODEFICIENCY VIRUS 1 (HIV-1) BY QUANTITATIVE [id number] 21:30:43* Test Item Value Reference Range Interpretation Comme nts HIV-1 Quantitative Interpretation (test code = 2862940859) Not Detected Not Detected ANA (test code = ANA) The Aptima HIV-1 Q uant assay is an FDA-approved nucleic acid amplification [...] repeat testing if clinically indicated. Lab Interpretation (test code = 71677-0) Normal [facility] SU[facility] [id number] 18:16:29* Test Item Value Reference Range Interpretation Comme nts CD4 % (test code = 8123-2) 29 % 31-60 L CD4 Absolute (test code = 95605-9) See_Comment [Automated [employer]View] The system which generated this result transmitted reference range: 410-1,590 Cells/?L. The reference range was not used to interpret this result as normal/abnormal. Lab Interpretation (test code = 77893-1) [facility]normal [facility]2021-06-23 17:28:01* Test Item Value Reference Range Interpretation Comme nts POCT GLU (test code = 9836258249) 103 mg/dL 70-110 Lab Interpretation (test cod e = 49693-3) Normal [facility] T[facility] Level - Draw immediately prior to the NEXT dose, but, no more than 60 minutes before the 2ND dose. 2021-06-23 11:44:09* Test Item Value Reference Range Interpretation Comme nts VANCO TROUGH (test code = 6822872982) <5.0 10.0-20.0 L ANA (test code = ANA) Toxic Range: ?>20 ug/mL 15-20 ug/mL is recommended for severe infection or when Vancomycin ROSETTA is greater than or equal to 2. Lab Interpretation (test code = 70334-2) Abnormal [facility] GLU[facility] (AUTOMATED)2021-06-23 11:34:02* Test Item Value Reference Range Interpretation Comme nts POCT GLU (test code = 0154787012) 128 mg/dL 70-110 H Lab Interpretation (test cod e = 31008-7) Abnormal [facility] METABOLIC PANEL (NA, K, CL, CO2, GLUCOSE, BUN, CREATININE, CA)2021-06-23 11:08:10* Test Item Value Reference Range Interpretation Comme nts NA (test code = 5948167424) 135 mmol/L 135-145 K (test code = 3208770552) 4.1 mmol/L 3.5-5.0 CL (test code = 5133571697) 110 mmol/L 98-108 H CO2 TOTAL (test code = 6459257303) 24 mmol/L 23-31 AGAP (test code = 1195327771) 2-16 L BUN (test code = 3391546714) 17 mg/dL 7-23 GLUCOSE (test code = 7387015132) 135 mg/dL 70-110 H CREATININE (test code = 3384515738) 0.67 mg/dL 0.50-1.04 CALCIUM (test code = 7796436397) 8.0 mg/dL 8.6-10.6 L eGFR (test code = 3744172799) mL/min/1.73m2 ANA (test code = ANA) Association [...] imaging tests). Lab Interpretation (test code = 22845-4) [facility]normal [facility] 11:08:10* Test Item Value Reference Range Interpretation Comme nts MAGNESIUM (test code = 0431234874) 2.2 mg/dL 1.7-2.4 Lab Interpretation (test cod e = 68814-7) Normal [facility]21[facility]21 11:08:10* Test Item Value Reference Range Interpretation Comme nts PHOSPHORUS (test code = 8870171663) 2.9 mg/dL 2.5-5.0 Lab Interpretation (test cod e = 18405-3) Normal [facility] [id number] 10:23:04* Test Item Value Reference Range Interpretation Comme nts WBC (test code = 6690-2) See_Comment H [Automated message] The system which generated this result transmitted reference range: 4.30 - 11.10 10*3/?L. The reference range was not used to interpret this result as normal/abnormal. RBC (test code = 789-8) See_Comment L [Automated message] The system which generated this result transmitted reference range: 3.93 - 5.25 10*6/?L. The reference range was not used to interpret this result as normal/abnormal. HGB (test code = 718-7) 10.4 g/dL 11.6-15.0 L HCT (test code = 4544-3) 30.1 % 35.7-45.2 L MCH (test code = 785-6) 31.0 pg 25.9-32.8 MCV (test code = 787-2) 89.9 fL 80.6-95.5 MCHC (test code = 786-4) 34.6 g/dL 31.6-35.1 PLT (test code = 777-3) See_Comment [Automated message] The system which generated this result transmitted reference range: 166 - 358 10*3/?L. The reference range was not used to interpret this result as normal/abnormal. MPV (test code = 35526-9) 8.8 fL 9.5-12.9 L RDW-CV (test code = 788-0) 14.2 % 12.0-15.5 RDW-SD (test code = 27485-3) 46.4 fL 39.0-49.9 NRBC x10^3 (test code = 7285577931) See_Comment [Automated messa ge] The system which generated this result transmitted reference range: 10*3/?L. The reference range was not used to interpret this result as normal/abnormal. NRBC/100 WBC (test code = 9478252529) See_Comment [Automated Responde Aia ge] The system which generated this result transmitted reference range: 0.0 - 10.0 /100 WBCs. The reference range was not used to interpret this result as normal/abnormal. IPF % (test code = 6352717355) Lab Interpretation (test code = 85681-0) [facility] Mhqeu1619-27-72 10:16:20* Test Item Value Reference Range Interpretation Comme [facility] LACTIC ACID (test code = 9070579952) 2.09 mmol/L 0.50-2.20 Lab Interpretation (test cod e = 38246-8) Normal [facility] GLUCOSE (AUTOMATED)2021-06-23 06:12:14* Test Item Value Reference Range Interpretation Comme [facility] POCT GLU (test code = 2268773115) 138 mg/dL 70-110 H Lab Interpretation (test cod e = 45495-2) [facility] Yrrwz6171-20-75 00:54:09* Test Item Value Reference Range Interpretation Comme [facility] LACTIC ACID (test code = 7094239385) 3.13 mmol/L 0.50-2.20 H Lab Interpretation (test cod e = 66467-3) Abnormal [facility] GLUCOSE (AUTOMATED)2021-06-22 23:21:03* Test Item Value Reference Range Interpretation Comme nts POCT GLU (test code = 2338813036) 143 mg/dL 70-110 H Lab Interpretation (test cod e = 49741-9) Abnormal [facility] GLUCOSE (AUTOMATED)2021-06-22 18:45:21* Test Item Value Reference Range Interpretation Comme nts POCT GLU (test code = 7114303818) 123 mg/dL 70-110 H Lab Interpretation (test cod e = 31321-8) [facility]normal [facility] Byyth6342-53-52 18:03:01* Test Item Value Reference Range Interpretation Comme nts LACTIC ACID (test code = 9090240362) 3.63 mmol/L 0.50-2.20 H Lab Interpretation (test cod e = 80812-0) Abnormal [facility] WITH [id number] 13:14:33* Test Item Value Reference Range Interpretation Comme nts WBC (test code = 6690-2) See_Comment H [Automated message] The system which generated this result transmitted reference range: 4.30 - 11.10 10*3/?L. The reference range was not used to interpret this result as normal/abnormal. RBC (test code = 789-8) See_Comment L [Automated message] The system which generated this result transmitted reference range: 3.93 - 5.25 10*6/?L. The reference range was not used to interpret this result as normal/abnormal. HGB (test code = 718-7) 10.6 g/dL 11.6-15.0 L HCT (test code = 4544-3) 31.9 % 35.7-45.2 L MCV (test code = 787-2) 91.1 fL 80.6-95.5 MCH (test code = 785-6) 30.3 pg 25.9-32.8 MCHC (test code = 786-4) 33.2 g/dL 31.6-35.1 RDW-SD (test code = 39037-6) 46.0 fL 39.0-49.9 RDW-CV (test code = 788-0) 13.6 % 12.0-15.5 PLT (test code = 777-3) See_Comment [Automated message] The system which generated this result transmitted reference range: 166 - 358 10*3/?L. The reference range was not used to interpret this result as normal/abnormal. MPV (test code = 34301-5) 8.9 fL 9.5-12.9 L NRBC/100 WBC (test code = 2014339438) See_Comment [Automated message] The system which generated this result transmitted reference range: 0.0 - 10.0 /100 WBCs. The reference range was not used to interpret this result as normal/abnormal. NRBC x10^3 (test code = 3467897818) <0.01 See_Comment [Automated message] The system which generated this result transmitted reference range: 10*3/?L. The reference range was not used to interpret this result as normal/abnormal. GRAN MAT (NEUT) % (test code = 770-8) 83.5 % IMM GRAN % (test code = 4676279919) 5.10 % LYMPH % (test code = 736-9) 6.3 % MONO % (test code = 5905-5) 4.5 % EOS % (test code = 713-8) 0.1 % BASO % (test code = 706-2) 0.5 % GRAN MAT x10^3(ANC) (test code = 7401414374) 22.80 10*3/uL 1.88-7.09 H IMM GRAN x10^3 (test code = 6023722629) 1.40 10*3/uL 0.00-0.06 H LYMPH x10^3 (test code = 731-0) 1.72 10*3/uL 1.32-3.29 MONO x10^3 (test code = 742-7) 1.24 10*3/uL 0.33-0.92 H EOS x10^3 (test code = 711-2) 0.04 10*3/uL 0.03-0.39 BASO x10^3 (test code = 704-7) 0.13 10*3/uL 0.01-0.07 H BANDS (test code = 3031825338) MARKED INCREASED A TOXIC CHANGES (test code = 803-7) Present A Lab Interpretation (test code = 34455-5) [facility]normal [facility]OL[facility]EL ([id number])2021-06-22 12:17:52* Test Item Value Reference Range Interpretation Comme nts NA (test code = 9368078602) 134 mmol/L 135-145 L K (test code = 3096655420) 4.0 mmol/L 3.5-5.0 CL (test code = 8773186777) 108 mmol/L 98-108 CO2 TOTAL (test code = 5513153401) 21 mmol/L 23-31 L AGAP (test code = 6458125003) 2-16 BUN (test code = 9179425065) 11 mg/dL 7-23 GLUCOSE (test code = 7190280812) 160 mg/dL 70-110 H CREATININE (test code = 9160421429) 0.61 mg/dL 0.50-1.04 TOTAL BILI (test code = 1613477170) 0.3 mg/dL 0.1-1.1 CALCIUM (test code = 6243257193) 7.6 mg/dL 8.6-10.6 L T PROTEIN (test code = 3606423388) 4.8 g/dL 6.3-8.2 L ALBUMIN (test code = 9359430885) 2.2 g/dL 3.5-5.0 L ALK PHOS (test code = 0331892318) 75 U/L 34-122 ALTv (test code = 1742-6) 26 U/L 5-35 AST(SGOT) (test code = 4522473099) 21 U/L 13-40 eGFR (test code = 3407633297) mL/min/1.73m2 ANA (test code = ANA) Association [...] imaging tests). Lab Interpretation (test code = 01831-2) [facility]normal [facility]2021[facility]20 12:17:52* Test Item Value Reference Range Interpretation Comme nts MAGNESIUM (test code = 4288429194) 2.0 mg/dL 1.7-2.4 Lab Interpretation (test cod e = 30070-4) Normal [facility]2021-[facility]-20 12:17:52* Test Item Value Reference Range Interpretation Comme nts PHOSPHORUS (test code = 6253407143) 2.0 mg/dL 2.5-5.0 L Lab Interpretation (test cod e = 79291-2) Abnormal [facility] DallasAC VBG + LACTIC UUFN0806-04-34 12:03:21* Test Item Value Reference Range Interpretation Comme nts PH (test code = 6975442845) 7.32-7.42 PCO2 WENDY (test code = 3232232533) See_Comment L [Automated messa ge] The system which generated this result transmitted reference range: 41 - 51 mmHg. The reference range was not used to interpret this result as normal/abnormal. PO2 WENDY (test code = 5650609647) See_Comment HH [Automated messa ge] The system which generated this result transmitted reference range: 25 - 40 mmHg. The reference range was not used to interpret this result as normal/abnormal. HCO3 WENDY (test code = 8952413035) See_Comment L [Automated messa ge] The system which generated this result transmitted reference range: 24 - 28 mEq/L. The reference range was not used to interpret this result as normal/abnormal. AC VBE(BEAKER) (test code = 4444735145) mEq/L LACTIC ACID (test code = 5911658747) 3.13 mmol/L 0.50-2.20 H Lab Interpretation (test code = 68702-5) Abnormal [facility] GLUCOSE (AUTOMATED)2021-06-22 11:29:33* Test Item Value Reference Range Interpretation Comme nts POCT GLU (test code = 1196100565) 154 mg/dL 70-110 H Lab Interpretation (test cod e = 42451-0) Abnormal [facility] GLUCOSE (AUTOMATED)2021-06-22 05:41:42* Test Item Value Reference Range Interpretation Comme nts POCT GLU (test code = 1297223701) 217 mg/dL 70-110 H Lab Interpretation (test cod e = 00170-4) Abnormal [facility] GLUCOSE (AUTOMATED)2021-06-22 00:36:50* Test Item Value Reference Range Interpretation Comme nts POCT GLU (test code = 4182246390) 142 mg/dL 70-110 H Lab Interpretation (test cod e = 55733-6) Abnormal [facility] GLUCOSE (AUTOMATED)2021-06-21 17:54:52* Test Item Value Reference Range Interpretation Comme nts POCT GLU (test code = 3103141721) 160 mg/dL 70-110 H Lab Interpretation (test cod e = 12445-6) Abnormal [facility]Van[facility] hospitalycin T[facility] Level - Draw immediately prior to the 4TH dose, but, no more than 60 minutes before the 4TH dose. 2021-06-21 11:09:36* Test Item Value Reference Range Interpretation Comme nts VANCO TROUGH (test code = 6151892985) 5.8 ug/mL 10.0-20.0 L ANA (test code = ANA) Toxic Range: ?>20 ug/mL 15-20 ug/mL is recommended for severe infection or when Vancomycin ROSETTA is greater than or equal to 2. Lab Interpretation (test code = 83063-6) Abnormal [facility] GLUCOSE (AUTOMATED)2021-06-21 11:03:43* Test Item Value Reference Range Interpretation Comme nts POCT GLU (test code = 4969702011) 155 mg/dL 70-110 H Lab Interpretation (test cod e = 57424-2) [facility]normal [facility] MET[facility]OLIC PANEL (72372)2021-06-21 10:33:49* Test Item Value Reference Range Interpretation Comme [facility] NA (test code = 9982061848) 132 mmol/L 135-145 L K (test code = 0157680512) 4.1 mmol/L 3.5-5.0 CL (test code = 0100841416) 108 mmol/L 98-108 CO2 TOTAL (test code = 0382537371) 18 mmol/L 23-31 L AGAP (test code = 8455715881) 2-16 BUN (test code = 8384301897) 13 mg/dL 7-23 GLUCOSE (test code = 3684346913) 175 mg/dL 70-110 H CREATININE (test code = 4833545938) 0.75 mg/dL 0.50-1.04 TOTAL BILI (test code = 7195559852) 0.3 mg/dL 0.1-1.1 CALCIUM (test code = 3324046518) 7.8 mg/dL 8.6-10.6 L T PROTEIN (test code = 2464612434) 4.7 g/dL 6.3-8.2 L ALBUMIN (test code = 7202615122) 2.3 g/dL 3.5-5.0 L ALK PHOS (test code = 8842934936) 73 U/L 34-122 ALTv (test code = 1742-6) 39 U/L 5-35 H AST(SGOT) (test code = 9880339837) 28 U/L 13-40 eGFR (test code = 5063978290) mL/min/1.73m2 ANA (test code = ANA) Association [...] imaging tests). Lab Interpretation (test code = 29371-1) [facility]2021-[facility]-19 10:33:49* Test Item Value Reference Range Interpretation Comme nts MAGNESIUM (test code = 7160683387) 2.1 mg/dL 1.7-2.4 Lab Interpretation (test cod e = 44305-1) Normal [facility]2021-[facility]-19 10:33:49* Test Item Value Reference Range Interpretation Comme nts PHOSPHORUS (test code = 1079792704) 1.9 mg/dL 2.5-5.0 L Lab Interpretation (test cod e = 67395-1) Abnormal [facility] DallasL[facility] Acid Whole Xpmpr8009-61-07 10:13:28* Test Item Value Reference Range Interpretation Comme nts LACTIC ACID (test code = 2881036309) 3.09 mmol/L 0.50-2.20 H Lab Interpretation (test cod e = 23161-9) Abnormal [facility] DallasCBC WITHOUT QMHM8170-94-47 10:08:31* Test Item Value Reference Range Interpretation Comme nts WBC (test code = 6690-2) See_Comment H [Automated message] The system which generated this result transmitted reference range: 4.30 - 11.10 10*3/?L. The reference range was not used to interpret this result as normal/abnormal. RBC (test code = 789-8) See_Comment [Automated message] The system which generated this result transmitted reference range: 3.93 - 5.25 10*6/?L. The reference range was not used to interpret this result as normal/abnormal. HGB (test code = 718-7) 12.4 g/dL 11.6-15.0 HCT (test code = 4544-3) 36.9 % 35.7-45.2 MCH (test code = 785-6) 31.0 pg 25.9-32.8 MCV (test code = 787-2) 92.3 fL 80.6-95.5 MCHC (test code = 786-4) 33.6 g/dL 31.6-35.1 PLT (test code = 777-3) See_Comment [Automated message] The system which generated this result transmitted reference range: 166 - 358 10*3/?L. The reference range was not used to interpret this result as normal/abnormal. MPV (test code = 90706-2) 9.0 fL 9.5-12.9 L RDW-CV (test code = 788-0) 13.3 % 12.0-15.5 RDW-SD (test code = 97681-6) 45.6 fL 39.0-49.9 NRBC x10^3 (test code = 3764382711) <0.01 See_Comment [Automated Responde Aia ge] The system which generated this result transmitted reference range: 10*3/?L. The reference range was not used to interpret this result as normal/abnormal. NRBC/100 WBC (test code = 5916949872) See_Comment [Automated Responde Aia ge] The system which generated this result transmitted reference range: 0.0 - 10.0 /100 WBCs. The reference range was not used to interpret this result as normal/abnormal. IPF % (test code = 0643273413) Lab Interpretation (test code = 92612-4) Abnormal [facility] DallasL[facility] Acid Whole Uffmt9551-10-78 05:27:17* Test Item Value Reference Range Interpretation Comme nts LACTIC ACID (test code = 4019195064) 3.55 mmol/L 0.50-2.20 H Lab Interpretation (test cod e = 02424-4) Abnormal [facility] GLUCOSE (AUTOMATED)2021-06-21 05:15:20* Test Item Value Reference Range Interpretation Comme nts POCT GLU (test code = 2907091395) 252 mg/dL 70-110 H Lab Interpretation (test cod e = 31390-9) Abnormal [facility] GLUCOSE (AUTOMATED)2021-06-20 23:57:17* Test Item Value Reference Range Interpretation Comme nts POCT GLU (test code = 0151062244) 143 mg/dL 70-110 H Lab Interpretation (test cod e = 80377-1) Abnormal [facility] DallasLams[facility] Acid Whole Gldim4551-97-86 22:44:12* Test Item Value Reference Range Interpretation Comme [facility] LACTIC ACID (test code = 7539855387) 4.40 mmol/L 0.50-2.20 H Lab Interpretation (test cod e = 22341-6) Abnormal [facility] METABOLIC PANEL (NA, K, CL, CO2, GLUCOSE, BUN, CREATININE, CA)2021-06-20 18:53:00* Test Item Value Reference Range Interpretation Comme [facility] NA (test code = 0743555207) 128 mmol/L 135-145 L K (test code = 2335837084) 3.8 mmol/L 3.5-5.0 CL (test code = 4908890986) 106 mmol/L 98-108 CO2 TOTAL (test code = 2271959502) 16 mmol/L 23-31 L AGAP (test code = 5908427928) 2-16 BUN (test code = 0871519902) 17 mg/dL 7-23 GLUCOSE (test code = 3169301908) 143 mg/dL 70-110 H CREATININE (test code = 4377175978) 0.96 mg/dL 0.50-1.04 CALCIUM (test code = 1417430600) 7.2 mg/dL 8.6-10.6 L eGFR (test code = 2744048549) mL/min/1.73m2 ANA (test code = ANA) Association [...] imaging tests). Lab Interpretation (test code = 22225-9) [facility]normal [facility] DallasL[facility] Whole Peree7900-47-01 18:29:31* Test Item Value Reference Range Interpretation Comme [facility] LACTIC ACID (test code = 7574742565) 3.67 mmol/L 0.50-2.20 H Lab Interpretation (test cod e = 41967-5) Abnormal [facility]POWV GLUCOSE (AUTOMATED)2021-06-20 18:14:36* Test Item Value Reference Range Interpretation Comme [facility] POCT GLU (test code = 8924144202) 140 mg/dL 70-110 H Lab Interpretation (test cod e = 25961-2) [facility] (NA, K, CL, CO2, GLUCOSE, BUN, CREATININE, CA)2021-06-20 14:04:20* Test Item Value Reference Range Interpretation Comme [facility] NA (test code = 3148602395) 127 mmol/L 135-145 L K (test code = 2876459519) 3.5 mmol/L 3.5-5.0 CL (test code = 4512503973) 105 mmol/L 98-108 CO2 TOTAL (test code = 6377778737) 16 mmol/L 23-31 L AGAP (test code = 0863539144) 2-16 BUN (test code = 9409637351) 20 mg/dL 7-23 GLUCOSE (test code = 8616772766) 214 mg/dL 70-110 H CREATININE (test code = 9002811997) 1.28 mg/dL 0.50-1.04 H CALCIUM (test code = 9033982432) 7.2 mg/dL 8.6-10.6 L eGFR (test code = 2423590106) mL/min/1.73m2 ANA (test code = ANA) Association [...] imaging tests). Lab Interpretation (test code = 23670-8) [facility]normal [facility]2021-[facility]-18 14:04:20* Test Item Value Reference Range Interpretation Comme nts MAGNESIUM (test code = 2296645274) 2.2 mg/dL 1.7-2.4 Lab Interpretation (test cod e = 79056-7) Normal [facility]2021-[facility]-18 14:04:20* Test Item Value Reference Range Interpretation Comme nts PHOSPHORUS (test code = 2769669861) 3.3 mg/dL 2.5-5.0 Lab Interpretation (test cod e = 75678-6) Normal [facility] DallasHEPAT[facility] FUNCTION [facility] (14685) (ALB,T.PRO,BILI T,BU/BC,ALT,AST,ALK PHOS)2021-06-20 14:04:20* Test Item Value Reference Range Interpretation Comme nts TOTAL BILI (test code = 5820003884) 0.8 mg/dL 0.1-1.1 BILI UNCON (test code = 6737332352) 0.4 mg/dL 0.1-1.1 BILI CONJ (test code = 3225758310) 0.0 mg/dL 0.0-0.3 T PROTEIN (test code = 3107832313) 4.4 g/dL 6.3-8.2 L ALBUMIN (test code = 7445770277) 2.0 g/dL 3.5-5.0 L ALK PHOS (test code = 4643618472) 53 U/L 34-122 ALTv (test code = 1742-6) 85 U/L 5-35 H AST(SGOT) (test code = 6827158600) 56 U/L 13-40 H Lab Interpretation (test cod e = 35455-6) [facility]normal [facility] DallasCBC WITH XJBE0056-26-92 11:35:59* Test Item Value Reference Range Interpretation Comme nts WBC (test code = 6690-2) See_Comment H [Automated message] The system which generated this result transmitted reference range: 4.30 - 11.10 10*3/?L. The reference range was not used to interpret this result as normal/abnormal. RBC (test code = 789-8) See_Comment [Automated message] The system which generated this result transmitted reference range: 3.93 - 5.25 10*6/?L. The reference range was not used to interpret this result as normal/abnormal. HGB (test code = 718-7) 13.1 g/dL 11.6-15.0 HCT (test code = 4544-3) 39.0 % 35.7-45.2 MCV (test code = 787-2) 91.3 fL 80.6-95.5 MCH (test code = 785-6) 30.7 pg 25.9-32.8 MCHC (test code = 786-4) 33.6 g/dL 31.6-35.1 RDW-SD (test code = 40663-3) 44.5 fL 39.0-49.9 RDW-CV (test code = 788-0) 13.2 % 12.0-15.5 PLT (test code = 777-3) See_Comment [Automated message] The system which generated this result transmitted reference range: 166 - 358 10*3/?L. The reference range was not used to interpret this result as normal/abnormal. MPV (test code = 18207-3) 8.6 fL 9.5-12.9 L NRBC/100 WBC (test code = 8511988658) See_Comment [Automated message] The system which generated this result transmitted reference range: 0.0 - 10.0 /100 WBCs. The reference range was not used to interpret this result as normal/abnormal. NRBC x10^3 (test code = 1860830976) <0.01 See_Comment [Automated message] The system which generated this result transmitted reference range: 10*3/?L. The reference range was not used to interpret this result as normal/abnormal. GRAN MAT (NEUT) % (test code = 770-8) 78.1 % IMM GRAN % (test code = 7665178883) 2.40 % LYMPH % (test code = 736-9) 9.2 % MONO % (test code = 5905-5) 6.2 % EOS % (test code = 713-8) 3.3 % BASO % (test code = 706-2) 0.8 % GRAN MAT x10^3(ANC) (test code = 3808960531) 15.95 10*3/uL 1.88-7.09 H IMM GRAN x10^3 (test code = 2040808828) 0.49 10*3/uL 0.00-0.06 H LYMPH x10^3 (test code = 731-0) 1.88 10*3/uL 1.32-3.29 MONO x10^3 (test code = 742-7) 1.27 10*3/uL 0.33-0.92 H EOS x10^3 (test code = 711-2) 0.68 10*3/uL 0.03-0.39 H BASO x10^3 (test code = 704-7) 0.16 10*3/uL 0.01-0.07 H BANDS (test code = 3615414851) MARKED INCREASED A TOXIC CHANGES (test code = 803-7) Present A Lab Interpretation (test code = 98532-5) Abnormal [facility] GLUCOSE (AUTOMATED)2021-06-20 10:47:12* Test Item Value Reference Range Interpretation Comme nts POCT GLU (test code = 1890505651) 228 mg/dL 70-110 H Lab Interpretation (test cod e = 42896-1) [facility]normal [facility] DallasL[facility] Whole Bkfzl6892-12-37 05:38:29* Test Item Value Reference Range Interpretation Comme nts LACTIC ACID (test code = 5914068569) 2.69 mmol/L 0.50-2.20 H Lab Interpretation (test cod e = 83957-0) Abnormal [facility] GLUCOSE (AUTOMATED)2021-06-20 05:38:29* Test Item Value Reference Range Interpretation Comme nts POCT GLU (test code = 6329498601) 260 mg/dL 70-110 H Lab Interpretation (test cod e = 38395-9) Abnormal [facility] DallasIonized Itvywvj4742-99-82 23:28:46* Test Item Value Reference Range Interpretation Comme nts IONIZED CA (test code = 2727318069) 4.20 mg/dL 4.50-5.30 L PH SERUM (test code = 7925996059) 7.35-7.45 Lab Interpretation (test cod e = 30201-9) [facility] Gumdrkervpre4672-33-98 23:17:16* Test Item Value Reference Range Interpretation Comme nts WBC (test code = 6690-2) See_Comment H [Automated message] The system which generated this result transmitted reference range: 4.30 - 11.10 10*3/?L. The reference range was not used to interpret this result as normal/abnormal. RBC (test code = 789-8) See_Comment [Automated message] The system which generated this result transmitted reference range: 3.93 - 5.25 10*6/?L. The reference range was not used to interpret this result as normal/abnormal. HGB (test code = 718-7) 14.3 g/dL 11.6-15.0 HCT (test code = 4544-3) 43.8 % 35.7-45.2 MCV (test code = 787-2) 92.8 fL 80.6-95.5 MCH (test code = 785-6) 30.3 pg 25.9-32.8 MCHC (test code = 786-4) 32.6 g/dL 31.6-35.1 RDW-SD (test code = 90644-9) 45.0 fL 39.0-49.9 RDW-CV (test code = 788-0) 13.2 % 12.0-15.5 PLT (test code = 777-3) See_Comment H [Automated message] The system which generated this result transmitted reference range: 166 - 358 10*3/?L. The reference range was not used to interpret this result as normal/abnormal. MPV (test code = 51763-7) 8.8 fL 9.5-12.9 L NRBC/100 WBC (test code = 8774540912) See_Comment [Automated message] The system which generated this result transmitted reference range: 0.0 - 10.0 /100 WBCs. The reference range was not used to interpret this result as normal/abnormal. NRBC x10^3 (test code = 4929646991) <0.01 See_Comment [Automated message] The system which generated this result transmitted reference range: 10*3/?L. The reference range was not used to interpret this result as normal/abnormal. GRAN MAT (NEUT) % (test code = 770-8) 84.6 % IMM GRAN % (test code = 9184133952) 1.00 % LYMPH % (test code = 736-9) 8.2 % MONO % (test code = 5905-5) 5.3 % EOS % (test code = 713-8) 0.3 % BASO % (test code = 706-2) 0.6 % GRAN MAT x10^3(ANC) (test code = 3449034642) 16.90 10*3/uL 1.88-7.09 H IMM GRAN x10^3 (test code = 4314785924) 0.20 10*3/uL 0.00-0.06 H LYMPH x10^3 (test code = 731-0) 1.64 10*3/uL 1.32-3.29 MONO x10^3 (test code = 742-7) 1.06 10*3/uL 0.33-0.92 H EOS x10^3 (test code = 711-2) 0.05 10*3/uL 0.03-0.39 BASO x10^3 (test code = 704-7) 0.12 10*3/uL 0.01-0.07 H BANDS (test code = 9774860791) MARKED INCREASED A Lab Interpretation (test code = 34009-1) [facility] DallasType [facility] Screen - The Type and Screen expires at midnight on the 3rd day after it was drawn. A current Type and Screen is required when RBCs are requested. For all other blood products, a Type and Scr een performed during the current hospitalizati...2021-06-19 23:14:01* Test Item Value Reference Range Interpretation Comme nts ABO & RH (test code = 20) A NEGATIVE Performed at [facility] Laboratory Services - [facility] Blood [place] [id number] Free: [phone] No. [id number] IAT (test code = 1185) Negative Performed at [facility] Laboratory Services [facility] Blood [place] [address]Toll Free: [phone] No. [id number] [facility] (NA, K, CL, CO2, GLUCOSE, BU, CREATININE, CA)2021-06-19 23:11:51* Test Item Value Reference Range Interpretation Comme nts NA (test code = 3553745065) 130 mmol/L 135-145 L K (test code = 6827243979) 3.9 mmol/L 3.5-5.0 CL (test code = 2777569132) 105 mmol/L 98-108 CO2 TOTAL (test code = 9146704376) 16 mmol/L 23-31 L AGAP (test code = 5900063583) 2-16 BUN (test code = 9083625302) 19 mg/dL 7-23 GLUCOSE (test code = 4150765718) 196 mg/dL 70-110 H CREATININE (test code = 1952593180) 1.12 mg/dL 0.50-1.04 H CALCIUM (test code = 8585012973) 7.2 mg/dL 8.6-10.6 L eGFR (test code = 8371606098) mL/min/1.73m2 ANA (test code = ANA) Association [...] imaging tests). Lab Interpretation (test code = 06685-3) Abnormal [facility] [place], [id number] 23:11:51* Test Item Value Reference Range Interpretation Comme nts MAGNESIUM (test code = 3632394442) 1.3 mg/dL 1.7-2.4 L Lab Interpretation (test cod e = 87666-8) [id number] 23:11:51* Test Item Value Reference Range Interpretation Comme nts PHOSPHORUS (test code = 1810107606) 3.5 mg/dL 2.5-5.0 Lab Interpretation (test cod e = 40196-7) [facility] Whole [id number] 22:36:49* Test Item Value Reference Range Interpretation Comme nts LACTIC ACID (test code = [id number]) 4.23 mmol/L 0.50-2.20 H Lab Interpretation (test cod e = [id number]) [facility]2021-06-19 22:26:28* Test Item Value Reference Range Interpretation Comme nts POCT GLU (test code = [id number]) 185 mg/dL 70-110 H Lab Interpretation (test cod e = [id number]) [facility] KNEE <3 VW [id number] 16:01:07HISTORY: ?Pain. MVC. FINDINGS: AP, lateral, oblique views [...] acute fracture or dislocation in right knee. Wimb, Radiant Results Inft User - 05/21/2020 10:02 [...] acute fracture or dislocation in right knee. [facility] HIPS 3 VW [id number] 16:00:19HISTORY: ?Pain. MVC. FINDINGS: AP view of [...] acute fracture or dislocation in right hip. [facility] Foot Complete 3+ Views [id number] 20:26:02Patient: KRISTIN YOUNG Date/Time08/24/2019 20:08 CSTReason for ExamInjuryReportDICTATION LOCATION: [id number]: Female, 44 years of age with FallPROCEDURE:LEFT [...] 08/24/2019 8:26 pmXR Ankle Complete 3+ Views [id number] 20:26:02 Patient: KRISTIN YOUNG Date/Time08/24/2019 20:08 CSTReason for ExamFallReportDICTATION LOCATION: [id number]: Female, 44 years of age with FallPROCEDURE:LEFT FOOT, 3 VIEWS.LEFT ANKLE, 3 VIEWS.COMPARISON: No prior studies.COMMENT: Large amount of soft tissue swelling seen laterally. Acute transverse fracture seen in the lateral malleolus without displacement. No other acutefracture or dislocation is seen. Ankle mortise joint is well aligned. Small dorsal and plantar calcaneal spurs are present.
[2023-09-09 06:01] LABS: Absolute Basophils 0.1 K/uL (0-0.5); Absolute Lymphocytes (CBC) 3.1 K/uL (0.7-4.9); Hematocrit 38.6 % (36.0-45.0); Lymphocytes % 31.8 % (15.3-44.8); Platelets 342 thou/uL (152-406); RBC Red Blood Cell Count 4.15 M/uL (3.86-4.86)
[2023-09-09 06:17] LABS: Albumin 3.2 g/dL (3.4-5.0); Albumin/Globulin Ratio 0.8 (1.1-1.8); Bilirubin Total 0.4 mg/dL (0.2-1.0); Protein, Total 7.2 g/dL (6.4-8.2)
[2023-09-09 06:30] LABS: Specific Gravity 1.014 (1.005-1.030)
[2023-09-09 06:36] LABS: Specific Gravity 1.014 (1.005-1.030); Urine Bacteria None Seen /HPF (<20); Urine Bilirubin NEGATIVE (Negative); Urine Blood Negative (Negative); Urine Clarity Turbid (Clear); Urine Color Light-Yellow (Yellow); Urine Glucose NEGATIVE (Negative); Urine Protein NEGATIVE (Negative); Urine RBC <5 /HPF (None Seen); Urine Urobilinogen Normal (Normal); Urine pH 6.5 (5.0-7.0)
--- NOTE | 2023-09-09 06:50 | ER ---
Nurse's Notes [facility] Name: Gabrielle Levine Age: 48 yrs Sex: Female : 1975 Arrival Date: 09/09/2023 Time: 05:19 Bed 14 Private MD: Diagnosis: Sprain of ankle;Avulsion fracture of right lateral malleolus, acute right ankle sprain, feeling unwell overall Presentation: 09/08 05:36 Chief complaint: Patient states: reports rolling her ankle on 09/07/23 and swelling km8 starting last night; pt also concerned for UTI due to falling multiple times this past month;. Coronavirus screen: Client denies travel out of the [place] in the last 14 days. Ebola Screen: No symptoms or risks identified at this time. Initial Sepsis Screen: Does the patient meet any 2 criteria? No. Patient's initial sepsis screen is negative. Does the patient have a suspected source of infection? No. Patient's initial sepsis screen is negative. Risk Assessment: Do you want to hurt yourself or someone else? Patient reports no desire to harm self or others. Onset of symptoms was September 07, 2023. 05:36 Method Of Arrival: Wheelchair km8 05:36 Acuity: PAZ 3 km8 Triage Assessment: 05:39 General: Appears in no apparent distress. comfortable, Behavior is calm, cooperative, km8 appropriate for age. Pain: Denies pain. EENT: No signs and/or symptoms were reported regarding the EENT system. Neuro: Level of Consciousness is awake, alert, obeys commands, Oriented to person, place, time, situation. Cardiovascular: Denies chest pain, shortness of breath, Patient's skin is warm and dry. Respiratory: Airway is patent Respiratory effort is even, unlabored, Respiratory pattern is regular, symmetrical. GI: No signs and/or symptoms were reported involving the gastrointestinal system. : Denies burning with urination, urinary frequency, urgency, Parent/caregiver report the patient having "dark urine". Derm: Skin is intact, is healthy with good turgor, Skin is dry, Skin is pink, warm \\T\\ dry. normal, Skin temperature is warm. Musculoskeletal: Circulation, motion, and sensation intact. Range of motion: intact in all extremities, Swelling present in right ankle. 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 - Social history:: Smoking status: Patient denies any tobacco usage or history of. Patient uses alcohol, occasionally. Patient/guardian denies using street drugs, but used to use street drugs. - Family history:: not pertinent. Screenin:42 [facility] ED Fall Risk Assessment (Adult) History of falling in the last 3 months, km8 including since admission Yes- fall prone (multiple falls) (3 pts) Confusion or Disorientation No (0 pts) Intoxicated or Sedated No (0 pts) Impaired Gait No (0 pts) Mobility Assist Device Used No (0 pt) Altered Elimination No (0 pt) Score/Fall Risk Level 3 or more points = High Risk Oriented to surroundings, Maintained a safe environment, Educated pt \\T\\ family on fall prevention, incl call for assistance when getting out of bed, Assessed \\T\\ reinforced patient's understanding of fall precautions, Provided non-skid footwear, Hourly rounding (assess needs \\T\\ fall precautionary measures) done, Used ambulatory aids as needed (educated on \\T\\ assisted with), Remained w/in arm's length of patient and in sight while toileting, Offered frequent toileting (1:1 observation), Remained with patient while ambulating. Abuse screen: Denies threats or abuse. Denies injuries from another. Nutritional screening: No deficits noted. Tuberculosis screening: No symptoms or risk factors identified. Assessment: 05:42 Reassessment: see triage assessment/notes. [facility] 06:43 Reassessment: Patient appears in no apparent distress at this time. No changes from 8 previously documented assessment. Patient and/or family updated on plan of care and expected duration. Pain level reassessed. Patient is alert, oriented x 3, equal unlabored respirations, skin warm/dry/pink. Vital Signs: 05:36 BP 135 / 84; Pulse 78; Resp 16; Temp 98.2(TE); Pulse Ox 95% on R/A; Weight 115.67 kg km8 (R); Height 5 ft. 6 in. (R); Pain 0/10; 06:00 BP 121 / 72; Pulse 66; Resp 16; Pulse Ox 98% on R/A; km8 05:36 Body Mass Index 41.16 (115.67 kg, 167.64 cm) km8 05:36 Pain Scale: Adult km8 [place] Coma Score: 05:42 Eye Response: spontaneous(4). Motor Response: obeys commands(6). Verbal Response: km8 oriented(5). Total: 15. ED Course: 05:26 Patient arrived in ED. gm2 05:33 Jim Palomino MD is Attending Physician. sp4 05:36 Marybeth Vasquez, RN is Primary Nurse. km8 05:39 Triage completed. km8 05:39 Arm band placed on right wrist. km8 05:42 Patient has correct armband on for positive identification. Bed in low position. Call km8 light in reach. Side rails up X 1. Pulse ox on. NIBP on. 05:42 Patient maintains SpO2 saturation greater than 95% on room air. km8 05:51 Initial lab(s) drawn, by me, sent to lab. km8 05:51 Missed attempt(s): 22 gauge in right antecubital area. Bleeding controlled, band aid km8 applied, catheter tip intact. 06:13 Ankle Right 3 View XRAY In Process Unspecified. EDMS 06:13 Foot Right 3 View XRAY In Process Unspecified. EDMS 06:43 Provided Education on: non-weight baring and walking boot teaching. km8 06:43 No provider procedures requiring assistance completed. km8 06:43 Patient did not have IV access during this emergency room visit. km8 06:49 Jason Main MD is Referral Physician. sp4 Administered Medications: No medications were administered Medication: 06:43 VIS not applicable for this client. km8 Outcome: 06:50 Discharge ordered by . sp4 06:53 Discharged to home ambulatory, with crutches, km8 06:53 Condition: good 06:53 Discharge instructions given to patient, Instructed on discharge instructions, follow up and referral plans. medication usage, crutch walking, non-weight baring to RLE Demonstrated understanding of instructions, follow-up care, medications, crutch walking, Prescriptions given X 1, 07:08 Patient left the ED. km8 Signatures: Dispatcher [employer] EDMS Jim Palomino MD MD sp4 Lesli Valverde 2 Marybeth Vasquez RN RN km8
--- NOTE | 2023-09-09 06:50 | EDPHYS ---
Physician Documentation [facility] Name: Gabrielle Levine Age: 48 yrs Sex: Female : 1975 Arrival Date: 09/09/2023 Time: 05:19 Bed 14 Private MD: ED Physician Jim Palmoino HPI: 09/08 05:33 This 48 yrs old Female presents to ER via Unassigned with complaints of Fall sp4 Injury. 05:52 48 year old female presents with complaint of the Right ankle pain after a fall on sp4 Tuesday 2 days ago. Patient also complains of feeling unwell and this had been bothering her for the past several days. Patient is concerned about having a UTI. . 06:29 States she has history of HIV. Patient takes Biktarvy, she is compliant with her sp4 medication she states her last HIV RNA count is undetectable. . 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 - Social history:: Smoking status: Patient denies any tobacco usage or history of. Patient uses alcohol, occasionally. Patient/guardian denies using street drugs, but used to use street drugs. - Family history:: not pertinent. ROS: 05:52 Constitutional: Negative for fever, chills, and weight loss, Positive Right ankle pain sp4 and positive feeling unwell. 05:52 All other systems are negative, Exam: 05:52 Constitutional: This is a well developed, well nourished patient who is awake, alert, sp4 and in no acute distress. Head/Face: Normocephalic, atraumatic. Eyes: Pupils equal round and reactive to light, extra-ocular motions intact. Lids and lashes normal. Conjunctiva and sclera are not injected. Cornea within normal limits. Periorbital areas with no swelling, redness, or edema. ENT: Nares patent. No nasal discharge, no septal abnormalities noted. Tympanic membranes are normal and external auditory canals are clear. Oropharynx with no redness, swelling, or masses, exudates, or evidence of obstruction, uvula midline. Mucous membranes moist. Neck: Trachea midline, no thyromegaly or masses palpated, and no cervical lymphadenopathy. Supple, full range of motion without nuchal rigidity, or vertebral point tenderness. Chest/axilla: Normal chest wall appearance and motion. Nontender with no deformity. No lesions are appreciated. Cardiovascular: Regular rate and rhythm with a normal S1 and S2. No gallops, murmurs, or rubs. Normal PMI, no JVD. No pulse deficits. Respiratory: Lungs have equal breath sounds bilaterally, clear to auscultation and percussion. No rales, rhonchi or wheezes noted. No increased work of breathing, no retractions or nasal flaring. Abdomen/GI: Soft, with normal bowel sounds. No distension or tympany. No guarding or rebound. No evidence of tenderness throughout. Back: No spinal tenderness. No costovertebral tenderness. Skin: Warm, dry with normal turgor. Normal color with no rashes, no lesions, and no evidence of cellulitis. MS/ Extremity: Pulses equal, no cyanosis. Neurovascular intact. Full, normal range of motion. Right ankle lateral swelling and tenderness. No laxity, no deformity, intact peripheral pulses. Neuro: Awake and alert, GCS 15, oriented to person, place, time, and situation. Cranial nerves II-XII grossly intact. Motor strength 5/5 in all extremities. Sensory grossly intact. Psych: Awake, alert, with orientation to person, place and time. Behavior, mood, and affect are within normal limits Vital Signs: 05:36 BP 135 / 84; Pulse 78; Resp 16; Temp 98.2(TE); Pulse Ox 95% on R/A; Weight 115.67 kg km8 (R); Height 5 ft. 6 in. (R); Pain 0/10; 06:00 BP 121 / 72; Pulse 66; Resp 16; Pulse Ox 98% on R/A; km8 05:36 Body Mass Index 41.16 (115.67 kg, 167.64 cm) 8 05:36 Pain Scale: Adult km8 Leonor Coma Score: 05:42 Eye Response: spontaneous(4). Motor Response: obeys commands(6). Verbal Response: km8 oriented(5). Total: 15. Procedures: 06:48 Splinting: Splint applied to lateral aspect of right calf, right ankle, lateral aspect sp4 of right foot, right calf, right Achilles and right heel using Ortho 3D boot, applied by myself. Examined by me, post splint application: neurovascular intact, 2+ distal pulses palpable, brisk capillary refill noted, Patient tolerated well, crutches provided . MDM: 05:35 Patient medically screened. sp4 05:58 ED course: Allergies: Azithromycin; Cephalexin Monohydrate; Dilantin; Erythromycin; sp4 metformin; Methocarbamol; phenytoin sodium; Wellbutrin PMHx: Anxiety; HIV positive; Irritable bowel syndrome; Migraines; PTSD PSHx: Cholecystectomy; hysterectomy; tubal ligation . 06:25 ED course: EXAM: Ankle Right 3 View XR Right Ankle 3 Views HISTORY: Pain COMPARISON: sp4 None. TECHNIQUE: Right Ankle 3 Views FINDINGS: No fracture or dislocation. No significant sclerotic/lytic bone lesion. Moderate calcaneal enthesophyte (bone spur) arising from plantar fascia attachment site. Joint spaces unremarkable. Mild, anterolateral, right ankle soft tissue swelling. IMPRESSION: 1. Moderate right calcaneal enthesophyte (bone spur) arising from plantar fascia attachment site. 2. Mild, anterolateral, right ankle soft tissue swelling. . 06:48 Differential diagnosis: abrasion, contusion, fracture, multiple trauma, sprain, strain. sp4 Data reviewed: vital signs, nurses notes, lab test result(s), radiologic studies, plain films. Consideration of Admission/Observation Escalation of care including admission/observation considered. ED course: Patient advised to have no weightbearing to right lower extremity for at least 2 weeks and follow-up with orthopedist in 2 weeks for repeat x-ray and assessment . . 09/08 05:40 Order name: Urinalysis W/Microscopic; Complete Time: 06:41 sp4 03 05:40 Order name: Test, Urine; Complete Time: 06:41 sp4 09/08 05:40 Order name: Urine Drug Screen; Complete Time: 06:52 sp4 09/08 05:40 Order name: CBC with Diff sp4 09/08 05:40 Order name: CMP; Complete Time: 06:25 sp4 09/08 05:40 Order name: Ankle Right 3 View XRAY sp4 09/08 05:40 Order name: Foot Right 3 View XRAY sp4 09/08 06:47 Order name: Crutch Training; Complete Time: 06:49 sp4 09/08 06:47 Order name: Orthopedic shoe: Ortho boot Right lower extremity applied by ; Complete sp4 Time: 06:49 09/08 06:48 Order name: Crutches; Complete Time: 06:49 sp4 Administered Medications: No medications were administered Disposition Summary: 09/09/23 06:50 Discharge Ordered Problem: new sp4 Symptoms: have improved sp4 Condition: Stable sp4 Diagnosis - Sprain of ankle sp4 - Avulsion fracture of right lateral malleolus, acute right ankle sprain, feeling sp4 unwell overall Followup: sp4 - With: Jason Main MD - When: 7 - 10 days - Reason: Recheck today's complaints Discharge Instructions: - Discharge Summary Sheet sp4 - Ankle Fracture, [id number] sp4 Forms: - Patient Portal Instructions sp4 - Work release form cm10 Prescriptions: - Ibuprofen 800 mg Oral Tablet - take 1 tablet ORAL route every 8 hours As needed take with food; 30 tablet; sp4 Refills: 0, Product Selection Permitted Signatures: Dispatcher [employer] Jim Mckenna MD MD sp4 Marybeth Vasquez RN RN km8
[2023-09-09 06:51] LABS: Barbiturates NEGATIVE (NEGATIVE); Benzodiazepines NEGATIVE (NEGATIVE); Cocaine NEGATIVE (NEGATIVE); METHAMPHETAM NEGATIVE (NEGATIVE); Methadone NEGATIVE (NEGATIVE); Opiates NEGATIVE (NEGATIVE); Phencyclidine NEGATIVE (NEGATIVE); THC Cannibis NEGATIVE (NEGATIVE)
[2023-09-09 07:20] VITALS: BP 121/72; TEMP 98.2; O2SAT 98
[2023-09-09 07:29] LABS: Blood Morphology Comment NOT SEEN (NOT SEEN); Platelet Estimate ADEQ; White Blood Cell Scan OK (OK)
--- NOTE | 2023-09-09 12:41 | RAD REPORT ---
EXAM DESCRIPTION: XR Right Foot Complete, 3 or More Views CLINICAL HISTORY: The patient is 48 years old and is Female; PAIN TECHNIQUE: Three views of the right foot. COMPARISON: Correlation with the right ankle x-rays, September 09, 2023. FINDINGS: Bones/joints: Avulsion fracture of undetermined age versus os fibulare, tip of the later al malleolus. This finding is better visualized on the x-rays of the right foot. No acute fracture visualized in the foot. No dislocation. Soft tissues: Lateral ankle soft tissue swelling. No radiopaque foreign body. IMPRESSION: Avulsion fracture of undetermined age versus os fibulare, tip of the lateral malleolus. This finding is better visualized on the current x-rays of the right foot. Electronically signed by: Crystal Joyner MD 09/09/2023 06:33 AM MILLER HELPER DISTILLERY Due to temporary technical issues with the PACS/Fluency reporting system, reports are being signed by the in house radiologists without review as a courtesy to insure prompt reporting. The interpreting radiologist is fully responsible for the content of the report.
--- NOTE | 2023-09-09 12:42 | RAD REPORT ---
EXAM DESCRIPTION: Ankle Right 3 View XR Right Ankle 3 Views CLINICAL HISTORY: Pain COMPARISON: None. TECHNIQUE: Right Ankle 3 Views FINDINGS: No fracture or dislocation. No significant sclerotic/lytic bone lesion. Moderate calcaneal enthesophyte (bone spur) arising from plantar fascia attachment site. Joint spaces unremarkable. Mild, anterolateral, right ankle soft tissue swelling. IMPRESSION: 1. Moderate right calcaneal enthesophyte (bone spur) arising from plantar fascia attachm ent site. 2. Mild, anterolateral, right ankle soft tissue swelling. Electronically signed by: Shane Manuel MD 09/09/2023 06:21 AM APPLICATIONS SCIENTIST Due to temporary technical issues with the PACS/Fluency reporting system, reports are being signed by the in house radiologists without review as a courtesy to insure prompt reporting. The interpreting radiologist is fully responsible for the content of the report.
== END ==
LOC: ER 05:19
DX: S82.61XA Displaced fracture of lateral malleolus of right fibula, initial encounter for closed fracture (principal); S93.401A Sprain of unspecified ligament of right ankle, initial encounter; R53.81 Other malaise
CPT/HCPCS: 36415; 80053; 80307; 81001; 81025; 85025; 99284

== ENCOUNTER 2024-11-09 16:07 | Emergency (ER) | payer BC, SELFPAY ==
--- OUTSIDE RECORDS SUMMARY | 2024-11-09 16:13 | XMS REPORT | Continuity of Care Document ---
Author Name Unknown Address [address] [facility] [address] [place] [address] [facility] Address [address] [facility] [address] [place] [address] Care Team Providers Care Tester Rocket [employer] Name Role Phone PCP, PATIENT DOES NOT HAVE A Primary Care Physic liana Unavailable RADIOLOGY Attending Clinician Unavailable Radiology Attending Clinician Unavailable Roxanne Dixon MD Attending Clinician [phone] [email or web address] Attending Clinician Unavaila esau BRIONES Attending Clinician Unavailable Doctor Unassigned, Bernard Attending Clinician U anna John Jr., MD, Timmy Brownlee Attending Clinician [phone] Roni GARCÍA, Ellen Gant Attending Clinician Unavail able JASON MACIAS Attending Clinician Unavailable Jason Macias MD Attending Clinician [phone] Chan Franklin MD Attending Clinician [phone] Vlad Vides DO Attending Clinician [phone] VLAD VIDES Attending Clinician Unavailable Nii Huynh Attending Clinician Unavailable Nii Huynh Attending Clinician Unavailable CARLOS LEARY Admitting Clinician Unavaila esau [email or web address]_S Admitting Clinician Unavaila esau BRIONES Admitting Clinician Unavailable JASON MACIAS Admitting Clinician Unavailable Jason Macias MD Admitting Clinician [phone] Nii Huynh Admitting Clinician Unavailable Payers Payer Name Policy Type Policy Number Effective Date Expirati on Date Source [place] [id number] 2023 00:[place] [id number] 2022 00:00:00 Problems Condition Name Condition Details Condition Category Status Onset Date Resolution Date Last Treatment Date Treating Clinician Comments Source Rash Rash Disease Active 2020-07 00:00: 00 [facility] IBS (irritable bowel syndrome) IBS (irritable bowel syndrome) Disease Active 2020-07 00:00: 00 [facility] Lactic acidemia Lactic acidemia Disease Active 2020-07 00:00: 00 [facility] Urinary tract infection Urinary tract infection Disease Active 2020-07 00:00: 00 [facility] Sepsis Sepsis Disease Active 2020-07 00:00: 00 [facility] HIV (human immunodefi ciency virus infection) HIV (human immunodefi ciency virus infection) Disease Active 2020-07 00:00: 00 [facility] Diabetes mellitus Diabetes mellitus Disease Active 2020-07 00:00: 00 [facility] Urinary retention Urinary retention Disease Active 2020-07 00:00: 00 [facility] Morbid obesity with body mass index of 50 or higher Morbid obesity with body mass index of 50 or higher Disease Active 08-30 00:00: 00 [facility] Morbid obesity with body mass index of 40.0-49.9 Morbid obesity with body mass index of 40.0-49.9 Disease Active 08-30 00:00: 00 [facility] Allergies, Adverse Reactions, Alerts Allergy Name Allergy Type Status Severity Reaction(s) Onset Date Inactive Date Treating Clinician Comments Source BUPROPIO N DRUG INGREDI Active Rash 2020-07 00:00: 00 [facility] Bupropio n Propensi ty to adverse reaction s Active Rash 2020-07 00:00: 00 Suspected cause of AGEP 06/2021 [facility] Fish Containi ng Products Propensi ty to adverse reaction s Active Unknown - See comments 2020-07 00:00: 00 [facility] FISH CONTAINI NG PRODUCTS Drug Class Active Unknown-Cmnt 2020-07 00:00: 00 [facility] BANANA DRUG INGREDI Active Unknown-Cmnt 2020-07 00:00: 00 [facility] Banana Propensi ty to adverse reaction s Active Unknown - See comments 2020-07 00:00: 00 [facility] Fish Containi ng Products Propensi ty to adverse reaction s Active Unknown - See comments 2020-07 00:00: 00 [facility] Azithrom ycin Propensi ty to adverse reaction s Active Other - See comments 08-05 00:00: 00 Liver failure [facility] AZITHROM YCIN DRUG INGREDI Active Other-Cmnt 08-05 00:00: 00 [facility] ERYTHROM YCIN DRUG Active SOB 08-05 00:00: 00 [facility] Erythrom ycin Propensi ty to adverse reaction s Active Shortness of Breath 08-05 00:00: 00 [facility] CEPHALEX IN DRUG INGREDI Active N/V 08-05 00:00: 00 [facility] LATEX DRUG INGREDI Active ITCHING 08-05 00:00: 00 [facility] CEFTRIAX ONE SODIUM DRUG INGREDI Active N/V 08-05 00:00: 00 [facility] Cephalex in Propensi ty to adverse reaction s Active Nausea and/or Vomiting 08-05 00:00: 00 [facility] Latex Propensi ty to adverse reaction s Active Itching 08-05 00:00: 00 [facility] Ceftriax one Sodium Propensi ty to adverse reaction s Active Nausea and/or Vomiting 08-05 00:00: 00 [facility] antihist amines Drug Active [facility] antihist amines Drug Active [facility] Pepcid Drug Active [facility] Dilantin Drug Active [facility] Pepcid Drug Active [facility] Dilantin Drug Active [facility] antihist amines Drug Active [facility] Pepcid Drug Active [facility] Dilantin Drug Active [facility] antihist amines Drug Active [facility] Pepcid Drug Active [facility] Dilantin Drug Active [facility] antihist amines Drug Active [facility] Pepcid Drug Active [facility] Dilantin Drug Active [facility] Social History Social Habit Start Date Stop Date Quantity Comments Source [facility] function 2023-12-09 00:00:00 2023-12-09 00:00:00 [facility] Alcoholic beverage intake 2023-12-09 00:00:00 2023-12-09 00:00:00 Current drinker of alcohol (finding) [facility] Exposure to SARS-CoV-2 (event) 2021-05-20 00:00:00 2021-06-19 19:11:00 Not sure [facility] Tobacco use and exposure 2021-06-19 00:00:00 2021-06-19 00:00:00 Smokeless tobacco non-user [facility] Alcohol intake 2021-06-19 00:00:00 2021-06-19 00:00:00 Current drinker of alcohol (finding) [facility] Sex assigned at 1975 00:00:00 1975 00:00:00 [facility] Smoking Status Start Date Stop Date Source Never smoked tobacco [facility] Unknown if [facility] Medications Ordered Medication Name Filled Medication Name Start Date Stop Date Current Medication? Ordering Clinician Indication Dosage Frequency Signature (SIG) Comments Components Source cetirizine (ZYRTEC) 10 mg tablet 2020-07 10:18: 49 Yes 20mg Take 20 mg by mouth daily. [facility] omeprazole 20 mg capsule 2020-07 10:18: 49 Yes 20mg Take 20 mg by mouth daily. [facility] triamcinolo ne acetonide 0.1 % cream 2020-07 00:00: 00 Yes [id number] Apply to area(s) 2 (two) times daily. [facility] furosemide (LASIX) injection 20 mg 2020-07 00:00: 00 06-26 23:59 :00 No 20mg 20 mg, Slow IV Push, Q6H, 4 doses, First dose (after last reorder) on Tue06/25/21 at 1800, Last dose on Tue06/26/21 at 1200, Routine [facility] furosemide (LASIX) injection 20 mg 2020-07 00:00: 00 06-25 18:14 :00 No 20mg 20 mg, Slow IV Push, Q6H, 4 doses, First dose (after last reorder) on Tue06/24/21 at 1800, Last dose on Tue06/25/21 at 1200, Routine [facility] polyethylen e glycol 3350 powder 17 g 2020-07 22:15: 00 Yes 17g 17 g, Oral, DAILY, First dose (after last modificati on) on Tue06/24/21 at 1615, Until Discontinu ed, Routine [facility] phenazopyri dine (PYRIDIUM) tablet 200 mg 2020-07 20:00: 00 06-25 14:43 :00 No 200mg 200 mg, Oral, TID, 6 doses, First dose on Tue06/23/21 at 1400, Last dose on Tue06/25/21 at 0800, Routine [facility] furosemide (LASIX) injection 20 mg 2020-07 18:00: 00 06-24 12:00 :00 No 20mg 20 mg, Slow IV Push, Q6H, 4 doses, First dose on Tue06/23/21 at 1200, Last dose on Tue06/24/21 at 0600, Routine [facility] cetirizine (ZYRTEC) tablet 5 mg 2020-07 15:49: 57 Yes 5mg 5 mg, Oral, QHSPRN, Starting on Tue06/23/21 at 0949, Until Discontinu ed, Routine, Itching [facility] hydrOXYzine (ATARAX) tablet 25 mg 2020-07 15:43: 01 Yes 25mg 25 mg, Oral, Q6HPRN, Starting on Tue06/23/21 at 0943, Until Discontinu ed, Routine, Itching [facility] hydrOXYzine (ATARAX) tablet 10 mg 2020-07 20:30: 18 06-23 15:43 :21 No 10mg 10 mg, Oral, Q6HPRN, Starting on Tue06/22/21 at 1430, Until Tue06/23/21 at 0943, Routine, Itching [facility] triamcinolo ne acetonide (TRIDERM) 0.1 % cream 2020-07 02:00: 00 Yes Topical, BID, First dose on 06/20/21 at 2000, Until Discontinu ed, Routine [facility] acetaminoph en ADULT (OFIRMEV) injection 1,000 mg 2020-07 02:00: 00 06-21 02:11 :00 No 1000mg 1,000 mg, IV Infusion, Administer over 15 Minutes, Q12H, 2 doses, First dose on 06/20/21 at 2000, Last dose on Tue06/21/21 at 0800, Routine
Indicatio n: Non-periop erative Patient
Approved by: Per Policy (NPO Status) [facility] albumin (ALBUMINAR 25%) 25 % injection 25 g 2020-07 20:00: 00 06-20 19:17 :00 No 25g 25 g, IV Infusion, ONCE, 1 dose, On 06/20/21 at 1400, 100 mL
Silvia cation: NEPHROTIC SYNDROME (ACUTE, SEVERE PERIPHERAL OR PULMONARY EDEMA)
Comments: Short-term use of albumin in combinatio n with diuretic therapy when: serum albumin <2 g/dL and optimal diuretic therapy alone has failed [facility] ca acetate-alu m sulfate (DOMEBORO) TOPICAL packet 1 Packet 2020-07 17:45: 00 06-27 13:59 :00 No 1{packe t} 1 Packet, Topical, TID, 21 doses, First dose on 06/20/21 at 1145, Last dose on Tue06/26/21 at 2000, Routine [facility] bictegrav-e mtricit-ten ofov ala (BIKTARVY) 50-200-25 mg tablet 1 tablet 2020-07 15:00: 00 Yes 1{tbl} 1 tablet, Oral, DAILY, First dose on 06/20/21 at 0900, Until Discontinu ed, Routine [facility] multivitami n tablet 1 tablet 2020-07 15:00: 00 Yes 1{tbl} 1 tablet, Oral, DAILY, First dose on 06/20/21 at 0900, Until Discontinu ed, Routine [facility] lactated ringers IV infusion 1,000 mL 2020-07 15:00: 00 06-22 22:12 :48 No 1000mL at 150 mL/hr, 1,000 mL, IV Infusion, CONTINUOUS , Starting on 06/20/21 at 0900, Until Tue06/22/21 at 1612, Routine [facility] albumin (ALBUTEIN 5 %) 5 % injection 25 g 2020-07 10:30: 00 06-20 09:29 :00 No 25g 25 g, IV Infusion, ONCE, 1 dose, On 06/20/21 at 0430, 500 mL
Silvia cation: SEVERE SEPSIS AND SEPTIC SHOCK
C omments: First-line therapy: Crystalloi ds. Albumin in fluid resuscitat ion when patient requires substantia l amounts of crystalloi ds. [facility] lactated ringers IV infusion 500 mL 2020-07 10:00: 00 06-20 16:46 :00 No 500mL at 999 mL/hr, 500 mL, Intravenou s, ONCE, 1 dose, On 06/20/21 at 0400, Routine [facility] lactated ringers IV infusion 500 mL 2020-07 08:50: 00 06-20 09:00 :00 No 500mL at 999 mL/hr, 500 mL, Intravenou s, ONCE, 1 dose, On 06/20/21 at 0300, Routine [facility] lactated ringers IV infusion 500 mL 2020-07 07:00: 00 06-20 07:04 :00 No 500mL at 999 mL/hr, 500 mL, Intravenou s, ONCE, 1 dose, On Tue06/20/21 at 0100, Routine [facility] zinc sulfate (ORAZINC) capsule 220 mg 2020-07 02:00: 00 Yes 220mg 220 mg, Oral, TID, First dose on Tue06/19/21 at 2000, Until Discontinu ed, Routine [facility] ascorbic acid (vitamin C) (VITAMIN C) tablet 500 mg 2020-07 02:00: 00 Yes 500mg 500 mg, Oral, BID, First dose on Tue06/19/21 at 2000, Until Discontinu ed, Routine [facility] chlorhexidi ne (PERIDEX) 0.12 % mouthwash 15 mL 2020-07 02:00: 00 Yes 15mL 15 mL, Oral (Swish And Spit Out), BID, First dose on Tue06/19/21 at 2000, Until Discontinu ed, Routine [facility] magnesium sulfate in water 4 gram/50 mL (8 %) IV Piggyback 4 g 2020-07 00:30: 00 06-20 02:20 :00 No 4g 4 g, IV Piggyback, ONCE, 1 dose, On Tue06/19/21 at 1830, [facility] + Fsbg Testing 2020-07 00:00: 00 Yes Subcutaneo us, Q6H, First dose on Tue06/19/21 at 1800, Until Discontinu ed, Routine [facility] enoxaparin (LOVENOX) injection 40 mg 2020-07 23:00: 00 Yes 40mg 40 mg, Subcutaneo us, DAILY, First dose on Tue06/19/21 at 1700, Until Discontinu ed, Routine [facility] ceFEPIme (MAXIPIME) 2,000 mg in NaCl 0.9% [...] infection< br>Duratio n of therapy: 7 days [facility] lactated ringers IV infusion 1,000 mL 2020-07 22:45: 00 06-19 22:52 :00 No 1000mL at 999 mL/hr, 1,000 mL, Intravenou s, ONCE, 1 dose, On Tue06/19/21 at 1645, Routine [facility] FENTanyl PF (SUBLIMAZE (PF)) injection 50 mcg 2020-07 21:49: 48 Yes 50ug 50 mcg, Slow IV Push, Q5MIN PRN, 3 doses, Starting on Tue06/19/21 at 1549, Until Discontinu ed, Routine, tube room [facility] ondansetron (ZOFRAN (PF)) injection 4 mg 2020-07 21:48: 41 Yes 4mg 4 mg, Slow IV Push, Q6HPRN, Starting on Tue06/19/21 at 1548, Until Discontinu ed, Routine, Nausea and Vomiting (N/V) [facility] morpHINE injection 2 mg 2020-07 21:48: 03 Yes 2mg 2 mg, Slow IV Push, Q4HPRN, Starting on Tue06/19/21 at 1548, Until Discontinu ed, Routine, Pain (scale 7-10) [facility] HYDROcodone -acetaminop hen (NORCO 5) 5-325 mg tablet 1 tablet 2020-07 21:47: 51 Yes 1{tbl} 1 tablet, Oral, Q6HPRN, Starting on Tue06/19/21 at 1547, Until Discontinu ed, Routine, Pain (scale 4-6) [facility] acetaminoph en (TYLENOL) tablet 650 mg 2020-07 21:47: 51 Yes 650mg 650 mg, Oral, Q6HPRN, Starting on Tue06/19/21 at 1547, Until Discontinu ed, Routine, Pain (scale 1-3) [facility] vancomycin (VANCOCIN) 1,000 mg in NaCl 0.9% [...] Soft tissue
Duration of therapy: 7 days [facility] pantoprazol e (PROTONIX) injection 40 mg 2020-07 21:45: 00 06-21 22:21 :00 No [id number] 40mg 40 mg, Slow IV Push, Q24H, 3 doses, First dose on Tue06/19/21 at 1545, Last dose on Tue06/21/21 at 1545 [facility] D5W 0.45% NaCl (1/2NS) 1 L + KCL 20 mEq 2020-07 21:45: 00 06-20 13:47 :19 No IV Infusion, at 100 mL/hr, CONTINUOUS , Starting on Tue06/19/21 at 1545, Until 06/20/21 at 0747, Routine [facility] glucagon (GLUCAGEN DIAGNOSTIC KIT) injection 1 mg 2020-07 21:38: 47 Yes 1mg 1 mg, Intramuscu lar, PRN, Starting on Tue06/19/21 at 1538, Until Discontinu ed, DONNIE, Blood Glucose < or = 70 mg/dL and patient is unable to swallow or has mental changes. [facility] dextrose 50 % in water (D50W) injection 25 mL 2020-07 21:38: 47 Yes 25mL 25 mL, Slow IV Push, PRN, Starting on Tue06/19/21 at 1538, Until Discontinu ed, DONNIE, Blood Glucose < or = 70 mg/dL and patient is unable to swallow or has mental status changes. [facility] cetirizine (ZYRTEC) 10 mg tablet 2020-07 15:46: 14 Yes 20mg Take 20 mg by mouth daily. [facility] omeprazole 20 mg capsule 2020-07 15:46: 14 Yes 20mg Take 20 mg by mouth daily. [facility] naproxen sodium (ANAPROX DS) 550 mg tablet 2019-07 00:00: 00 Yes [id number] 550mg Take 1 tablet by mouth 2 (two) times daily with meals. [facility] methylPREDN ISolone (MEDROL, JOY,) 4 mg tablets 2019-07 00:00: 00 Yes [id number] Take by mouth SEE-INSTRU CTIONS. follow package directions [facility] methocarbam oL 500 mg tablet 2019-07 00:00: 00 05-27 05:59 :00 No [id number] 500mg Take 1 tablet by mouth 3 (three) times daily for 5 days. [facility] cetirizine (ZYRTEC) 10 mg tablet 08-30 19:00: 58 Yes 20mg Take 20 mg by mouth daily. [facility] omeprazole 20 mg capsule 08-30 19:00: 58 Yes 20mg Take 20 mg by mouth daily. [facility] clindamycin 300 mg capsule 08-30 00:00: 00 Yes 300mg Take 1 capsule by mouth 4 (four) times daily. [facility] clotrimazol e-betametha sone (LOTRISONE) cream 08-05 00:00: 00 Yes Apply to area(s) 2 (two) times daily. [facility] Nitrofurant oin&Nit. Macrocryst (MACROBID) 100 mg capsule 08-05 00:00: 00 Yes 100mg Take 1 Cap by mouth 2 (two) times daily. [facility] Vital Signs Vital Name Observation Time Observation Value Comments S ouralana Systolic blood pressure 2021-06-26 14:00:00 129 mm[Hg] [facility] Diastolic blood pressure 2021-06-26 14:00:00 75 mm[Hg] [facility] Heart rate 2021-06-26 14:00:00 82 /min [facility] Body temperature 2021-06-26 14:00:00 36.44 Shaneka [facility] Respiratory rate 2021-06-26 14:00:00 18 /min [facility] Oxygen saturation in Arterial blood by Pulse oximetry 2021-06-26 14:00:00 95 /min [facility] Body height 2021-06-22 17:00:00 167.6 cm [facility] Body weight 2021-06-22 17:00:00 133.3 kg [facility] BMI 2021-06-22 17:00:00 47.46 kg/m2 [facility] Systolic blood pressure 2020-05-21 15:10:00 154 mm[Hg] [facility] Diastolic blood pressure 2020-05-21 15:10:00 97 mm[Hg] [facility] Heart rate 2020-05-21 15:10:00 99 /min [facility] Body temperature 2020-05-21 15:10:00 36.44 Shaneka [facility] Respiratory rate 2020-05-21 15:10:00 18 /min [facility] Body height 2020-05-21 15:10:00 167.6 cm [facility] Body weight 2020-05-21 15:10:00 123.832 kg [facility] BMI 2020-05-21 15:10:00 44.06 kg/m2 [facility] Oxygen saturation in Arterial blood by Pulse oximetry 2020-05-21 15:10:00 97 /min [facility] Procedures Procedure Date / Time Performed Performing Clinician Source DEXA AXIAL (HIP AND SPINE) 2024-04-27 14:44:01 Rupert leblanc, Paper [facility] AUTHORIZATION FOR RELEASE OF PHI 2021-12-29 05:01:00 Doctor Unassigned, Bernard [facility] EXTERNAL PROVIDER RECORDS 2021-07-14 06:01:00 Do ctor Unassigned, Bernard [facility] PHOSPHORUS 2021-06-26 11:43:00 [facility] MAGNESIUM 2021-06-26 11:43:00 [facility] BASIC METABOLIC PANEL (NA, K, CL, CO2, GLUCOSE, BUN, CREATININE, CA) 2021-06-26 11:43:00 James [facility] CBC WITHOUT DIFF 2021-06-26 11:43:00 James [facility] POCT GLUCOSE (AUTOMATED) 2021-06-25 23:59:00 Denny [facility] POCT GLUCOSE (AUTOMATED) 2021-06-25 17:53:00 Denny [facility] POCT GLUCOSE (AUTOMATED) 2021-06-25 06:12:00 Denny [facility] POCT GLUCOSE (AUTOMATED) 2021-06-24 23:14:00 Denny [facility] POCT GLUCOSE (AUTOMATED) 2021-06-24 17:52:00 Denny [facility] POCT GLUCOSE (AUTOMATED) 2021-06-24 11:59:00 Denny [facility] PHOSPHORUS 2021-06-24 10:51:00 [facility] MAGNESIUM 2021-06-24 10:51:00 Jair Hernandez [facility] BASIC METABOLIC PANEL (NA, K, CL, CO2, GLUCOSE, BUN, CREATININE, CA) 2021-06-24 10:51:00 Jair Hernandez [facility] CBC WITHOUT DIFF 2021-06-24 10:51:00 Jair Hernandez [facility] POCT GLUCOSE (AUTOMATED) 2021-06-24 06:15:00 Denny [facility] POCT GLUCOSE (AUTOMATED) 2021-06-24 02:01:00 Denny [facility] POCT GLUCOSE (AUTOMATED) 2021-06-23 23:10:00 Denny [facility] POCT GLUCOSE (AUTOMATED) 2021-06-23 17:26:00 Denny [facility] POCT GLUCOSE (AUTOMATED) 2021-06-23 11:32:00 Denny [facility] PHOSPHORUS 2021-06-23 10:04:00 [facility] MAGNESIUM 2021-06-23 10:04:00 Jair Hernandez [facility] BASIC METABOLIC PANEL (NA, K, CL, CO2, GLUCOSE, BUN, CREATININE, CA) 2021-06-23 10:04:00 [facility] 2021-06-23 10:04:00 Mick Schumacher bette [facility] CBC WITHOUT DIFF 2021-06-23 10:04:00 [facility] WHOLE [facility]LOOD 2021-06-23 10:04:00 Salazar rosado [facility] HUMAN IMMUNODEFICIENCY VIRUS 1 (HIV-1) BY QUANTITATIVE NAAT 2021-06-23 10:04:00 David [facility] POCT GLUCOSE (AUTOMATED) 2021-06-23 06:11:00 Denny [facility] LACTIC ACID WHOLE BLOOD 2021-06-23 00:24:00 Salazar rosado [facility] POCT GLUCOSE (AUTOMATED) 2021-06-22 23:08:00 Denny [facility] POCT GLUCOSE (AUTOMATED) 2021-06-22 18:19:00 Denny [facility] CD4 SUBSET ASSAY 2021-06-22 17:53:00 Marija Nash [facility] MYCOPLASMA PNEUMONIAE ANTIBODY, IGM 2021-06-22 17:50:00 [facility] LACTIC ACID WHOLE BLOOD 2021-06-22 17:50:00 Salazar rosado [facility] XR CHEST 1 VW 2021-06-22 14:32:00 David [facility] AC VBG + LACTIC ACID 2021-06-22 11:21:00 [facility] PHOSPHORUS 2021-06-22 11:20:00 David [facility] MAGNESIUM 2021-06-22 11:20:00 [facility] COMP. METABOLIC PANEL ([id number]) 2021-06-22 11:20:[facility] 2021-06-22 11:20:00 David [facility] POCT GLUCOSE (AUTOMATED) 2021-06-22 11:18:00 Denny [facility] POCT GLUCOSE (AUTOMATED) 2021-06-22 05:35:00 Denny [facility] POCT GLUCOSE (AUTOMATED) 2021-06-22 00:34:00 Denny [facility] POCT GLUCOSE (AUTOMATED) 2021-06-21 17:53:00 Denny [facility] POCT GLUCOSE (AUTOMATED) 2021-06-21 11:02:00 Denny [facility] LACTIC ACID WHOLE BLOOD 2021-06-21 09:49:00 Neo Hernandez [facility] PHOSPHORUS 2021-06-21 09:44:00 Jair Hernandez [facility] MAGNESIUM 2021-06-21 09:44:00 David [facility] COMP. METABOLIC PANEL ([id number]) 2021-06-21 09:44:00 [facility]OUGH 2021-06-21 09:44:00 Clark Echols [facility] CBC WITHOUT DIFF 2021-06-21 09:44:00 Jair Hernandez [facility] LACTIC ACID WHOLE BLOOD 2021-06-21 05:12:00 Neo Hernandez [facility] POCT GLUCOSE (AUTOMATED) 2021-06-21 05:11:00 Denny [facility] POCT GLUCOSE (AUTOMATED) 2021-06-20 23:55:00 Ridge Macias [facility] LACTIC ACID WHOLE BLOOD 2021-06-20 22:14:[facility] 2021-06-20 18:18:00 Neo Hernandez [facility] BASIC METABOLIC PANEL (NA, K, CL, CO2, GLUCOSE, BUN, CREATININE, CA) 2021-06-20 18:17:00 [facility] ([facility]OMATED) 2021-06-20 18:01:00 Rigde Macias [facility] POCT GLUCOSE (AUTOMATED) 2021-06-20 10:46:00 Ridge Macias [facility] PHOSPHORUS 2021-06-20 10:43:00 Onesimo [facility] MAGNESIUM 2021-06-20 10:43:00 Onesimo [facility] HEPATIC FUNCTION PANEL ([id number]) (ALB,T.PRO,BILI T,BU/BC,ALT,AST,ALK PHOS) 2021-06-20 10:43:00 Sarah Schumacher [facility] BASIC METABOLIC PANEL (NA, K, CL, CO2, GLUCOSE, BUN, CREATININE, CA) 2021-06-20 10:43:00 Onesimo [facility] CBC WITH DIFF 2021-06-20 10:43:00 Onesimo [facility] POCT GLUCOSE (AUTOMATED) 2021-06-20 05:37:00 Ridge Macias [facility] LACTIC ACID WHOLE BLOOD 2021-06-20 05:30:00 Rabia Echols [facility] URINE CULTURE 2021-06-19 23:12:00 Onesimo [facility] LACTIC ACID WHOLE BLOOD 2021-06-19 22:31:00 Rabia Echols [facility] PHOSPHORUS 2021-06-19 22:30:00 Onesimo [facility] MAGNESIUM 2021-06-19 22:30:00 Onesimo [facility] IONIZED CALCIUM 2021-06-19 22:30:00 [facility] (NA, K, CL, CO2, GLUCOSE, BUN, CREATININE, CA) 2021-06-19 22:30:00 Onesimo [facility] CBC WITH DIFF 2021-06-19 22:30:00 Clark Echols [facility] HB ABO GROUPING 2021-06-19 22:30:00 Clark Echols [facility] MRSA / MSSA SCREEN BY RAY ROPER 2021-06-19 22:30:00 Onesimo [facility] POCT GLUCOSE (AUTOMATED) 2021-06-19 22:25:00 Ridge Macias [facility] MEMORANDUM OF TRANSFER (MOT) 2021-06-19 06:01:00 Doctor Unassigned, Bernard [facility] XR HIPS 3 VW RIGHT 2020-05-21 15:55:59 Vlad Vides [facility] XR KNEE <3 VW RIGHT 2020-05-21 15:55:59 Kierra Vides [facility] Encounters Start Date/Time End Date/Time Encounter Type Admission Type Attending Clinicians Care Facility Care Department Encounter ID Source 2024-04-27 09:15:08 2024-04-27 23:59:00 Outpatient R RADIOLOGY [facility] [id number] [facility] 2024-04-27 09:15:08 2024-04-27 23:59:00 Hospital Encounter Radiology Radiology [facility] [[email or web address] AT [facility] 1.2.840.114 350.1.13.10 4.2.7.2.686 [id number] [facility] 2023-12-09 10:40:00 2023-12-09 23:59:00 Hospital Encounter Roxanne Dixon [facility] 1.2.840.114 350.1.13.10 4.2.7.2.686 [id number] 800 [id number] [facility] 2023-05-29 00:00:00 2023-05-29 00:00:00 Outpatient GC_GCBZW_Ka diyala_S PRIV PRIV [id number] [facility] 2023-04-26 00:00:00 2023-04-26 00:00:00 Outpatient GC_GCBZW_Ka diyala_S PRIV PRIV [id number] [facility] 2023-04-26 00:00:00 2023-04-26 00:00:00 Outpatient GC_GCBZW_Ka diyala_S PRIV PRIV [id number] [facility] 2022-01-13 11:14:00 2022-01-13 11:14:00 Outpatient MICHAEL_RABIA GARCIA OKCAIN [facility] [id number] [facility] 2021-12-29 00:00:00 2021-12-29 00:00:00 Orders Only Doctor Unassigned, Bernard [facility] 1.840.114 350.1.13.10 4.2.7.2.686 [id number] [facility] 2021-08-04 00:00:00 2021-08-04 00:00:00 Telephone Timmy John [facility] 1.0.114 350.1.13.10 4.2.7.2.686 [id number] [facility] 2021-07-14 00:00:00 2021-07-14 00:00:00 Orders Only Doctor Unassigned, Bernard [facility] 1.0.114 350.1.13.10 4.2.7.2.686 [id number] [facility] 2021-06-29 00:00:00 2021-06-29 00:00:00 Transition of Care Ellen Tamayo 1.840.114 350.1.13.10 4.2.7.2.686 [id number] [facility] 2021-06-19 15:45:00 2021-06-26 10:18:00 Inpatient JASON WILLOUGHBY [facility] [[email or web address] SBU [id number] [facility] 2021-06-19 15:45:00 2021-06-26 10:18:00 Hospital Encounter Jason Macias [facility] 1.2.840.114 350.1.13.10 4.2.7.2.686 [id number] [facility] 2021-06-23 00:00:00 2021-06-23 00:00:00 Patient Secure Msg Doctor Unassigned, Bernard [facility] 1.2.840.114 350.1.13.10 4.2.7.2.686 [id number] [facility] 2021-06-22 10:26:00 2021-06-22 23:59:00 Hospital Encounter Chan Franklin Jason Macias [facility] 1.2.840.114 350.1.13.10 4.2.7.2.686 [id number] [facility] 2020-05-21 09:13:00 2020-05-21 10:22:00 Emergency Vlad Vides [facility] 1.2.840.114 350.1.13.10 4.2.7.2.686 [id number] [facility] 2020-05-21 09:13:00 2020-05-21 09:13:00 Emergency X VLAD VIDES [facility] [[email or web address] ERT [id number] [facility] 2019-08-24 19:15:00 2019-08-24 19:15:00 Emergency Nii Huynh Amir [facility] MODE [id number] [facility] 2019-08-24 19:15:00 2019-08-24 19:15:00 Emergency Nii Huynh Amir [facility] MODE [id number] [facility] Results Test Description Test Time Test Comments Results Resul t Comments Source DEXA AXIAL (HIP AND SPINE) 2024-04-27 16:20:20 DEXA AXIAL (HIP AND SPINE) HISTORY: Female 48 years Osteoporosis screening. COMPARISON: ?None. TECHNIQUE: Bone densitometry of the lumbar spine and hip was performed on a [employer] system. ? WHO-definitions ?T score ?normal ? T >/= - 1 SD around the mean ?osteopenia ?-1 > T > -2.5 SD below the mean ? ? osteoporosis ? ? ? T >/= -2.5 SD below the mean ? Fracture risk doubles for each 1.5 SD below the mean. ? FINDINGS: 1. Lumbar spine L1-L4: Z value -1.6. ?Bone mineral density of 1.124g/cm^2. The T score is -0.6. 2. Right Hip: Z value -0.5. ?Bone mineral density of 1.006 g/cm^2. The Tscore is 0.0. Right Neck: Z value -0.4. ?Bone mineral density of 0.966 g/cm^2. The Tscore is -0.3. [facility]:22[facility]* Test Item Value Reference Range Interpretation Comme nts MAGNESIUM (test code = 3381876599) 2.1 mg/dL 1.7-2.4 Lab Interpretation (test cod e = 78891-0) Normal [facility] 12:22:03* Test Item Value Reference Range Interpretation Comme nts PHOSPHORUS (test code = 0736329835) 4.5 mg/dL 2.5-5.0 Lab Interpretation (test cod e = 50628-2) Normal [facility] [id number] 12:00:40* Test Item Value Reference Range Interpretation [...] result as normal/abnormal. MPV (test code = 60786-4) 8.5 fL 9.5-12.9 L RDW-CV (test code = 788-0) 13.8 % 12.0-15.5 RDW-SD (test code = 69251-8) 46.3 fL 39.0-49.9 NRBC x10^3 (test code = 2129630686) <0.01 See_Comment [Automated [employer]] The system which generated this result transmitted reference range: 10*3/?L. The reference range was not used to interpret this result as normal/abnormal. NRBC/100 WBC (test code = 4414231173) See_Comment [Automated [employer]] The system which generated this result transmitted reference range: 0.0 - 10.0 /100 WBCs. The reference range was not used to interpret this result as normal/abnormal. IPF % (test code = 6654457005) Lab Interpretation (test code = 23868-6) Abnormal [facility] GLUCOSE (AUTOMATED)2021-06-26 00:04:01* Test Item Value Reference Range Interpretation Comme nts POCT GLU (test code = 8077687765) 173 mg/dL 70-110 H Lab Interpretation (test cod e = 86469-5) Abnormal [facility] GLUCOSE (AUTOMATED)2021-06-25 17:55:35* Test Item Value Reference Range Interpretation Comme nts POCT GLU (test code = 6590196164) 145 mg/dL 70-110 H Lab Interpretation (test cod e = 97291-1) Abnormal [facility] GLUCOSE (AUTOMATED)2021-06-25 06:15:45* Test Item Value Reference Range Interpretation Comme nts POCT GLU (test code = 2435721093) 135 mg/dL 70-110 H Lab Interpretation (test cod e = 47290-9) Abnormal [facility] GLUCOSE (AUTOMATED)2021-06-24 23:16:03* Test Item Value Reference Range Interpretation Comme nts POCT GLU (test code = 0796974842) 110 mg/dL 70-110 Lab Interpretation (test cod e = 59416-8) Normal [facility]COPLASMA PNEUMONIAE ANTIBODY, [id number] 20:37:47* Test Item Value Reference Range Interpretation [...] for more ?than 12 months post-infection.Performed By: [employer] [place] [id number] Director: Nirmala Layton MD [Automated message] The system which generated this result transmitted reference range: <=0.76. The reference range was not used to interpret this result as normal/abnormal. [facility] GLUCOSE (AUTOMATED)2021-06-24 17:53:24* Test Item Value Reference Range Interpretation Comme nts POCT GLU (test code = 3177533687) 120 mg/dL 70-110 H Lab Interpretation (test cod e = 31648-3) Abnormal [facility] GLUCOSE (AUTOMATED)2021-06-24 12:00:41* Test Item Value Reference Range Interpretation Comme nts POCT GLU (test code = 4183580159) 152 mg/dL 70-110 H Lab Interpretation (test cod e = 44139-8) [facility] (NA, K, CL, CO2, GLUCOSE, BUN, CREATININE, CA)2021-06-24 11:54:18* Test Item Value Reference Range Interpretation Comme nts NA (test code = 1239748031) 134 mmol/L 135-145 L K (test code = 7155016653) 3.5 mmol/L 3.5-5.0 CL (test code = 7410617297) 105 mmol/L 98-108 CO2 TOTAL (test code = 4113893782) 24 mmol/L 23-31 AGAP (test code = 0113015503) 2-16 BUN (test code = 9195095547) 20 mg/dL 7-23 GLUCOSE (test code = 0244906427) 191 mg/dL 70-110 H CREATININE (test code = 3527688082) 0.77 mg/dL 0.50-1.04 CALCIUM (test code = 1889194455) 7.7 mg/dL 8.6-10.6 L eGFR (test code = 0558034140) mL/min/1.73m2 ANA (test code = ANA) Association [...] imaging tests). Lab Interpretation (test code = 97383-2) [facility]normal [facility]2021[facility]-22 11:54:18* Test Item Value Reference Range Interpretation Comme nts PHOSPHORUS (test code = 5449833526) 3.4 mg/dL 2.5-5.0 Lab Interpretation (test cod e = 86094-5) Normal [facility]2021-[facility]-22 11:54:18* Test Item Value Reference Range Interpretation Comme nts MAGNESIUM (test code = 9618716163) 2.0 mg/dL 1.7-2.4 Lab Interpretation (test cod e = 98907-4) Normal [facility] [id number] 11:12:33* Test Item Value Reference Range Interpretation [...] result as normal/abnormal. MPV (test code = 89514-3) 8.9 fL 9.5-12.9 L RDW-CV (test code = 788-0) 14.5 % 12.0-15.5 RDW-SD (test code = 35356-8) 47.9 fL 39.0-49.9 NRBC x10^3 (test code = 4153700279) See_Comment [Automated messa ge] The system which generated this result transmitted reference range: 10*3/?L. The reference range was not used to interpret this result as normal/abnormal. NRBC/100 WBC (test code = 5408988060) See_Comment [Automated messa ge] The system which generated this result transmitted reference range: 0.0 - 10.0 /100 WBCs. The reference range was not used to interpret this result as normal/abnormal. IPF % (test code = 1501362294) Lab Interpretation (test code = 64158-5) Abnormal [facility] GLUCOSE (AUTOMATED)2021-06-24 06:19:32* Test Item Value Reference Range Interpretation Comme nts POCT GLU (test code = 9697945982) 275 mg/dL 70-110 H Lab Interpretation (test cod e = 93742-2) Abnormal [facility] GLUCOSE (AUTOMATED)2021-06-24 02:05:55* Test Item Value Reference Range Interpretation Comme nts POCT GLU (test code = 3746998535) 175 mg/dL 70-110 H Lab Interpretation (test cod e = 14810-4) Abnormal [facility] GLUCOSE (AUTOMATED)2021-06-23 23:20:29* Test Item Value Reference Range Interpretation Comme nts POCT GLU (test code = 2534889043) 173 mg/dL 70-110 H Lab Interpretation (test cod e = 36541-6) Abnormal [facility] IMMUNODEFICIENCY VIRUS 1 (HIV-1) BY QUANTITATIVE [id number] 21:30:43* Test Item Value Reference Range Interpretation Comme nts HIV-1 Quantitative Interpretation (test code = 2405572253) Not Detected Not Detected ANA (test code [...] clinically indicated. Lab Interpretation (test code = 09131-3) Normal [facility] SUBSET [id number] 18:16:29* Test Item Value Reference Range Interpretation Comme nts CD4 % (test code = 8123-2) 29 % 31-60 L CD4 Absolute (test code = 76526-6) See_Comment [Automated [employer]] The system which generated this result transmitted reference range: 410-1,590 Cells/?L. The reference range was not used to interpret this result as normal/abnormal. Lab Interpretation (test code = 05873-3) Abnormal [facility]2021-06-23 17:28:01* Test Item Value Reference Range Interpretation Comme nts POCT GLU (test code = 7706388640) 103 mg/dL 70-110 Lab Interpretation (test cod e = 48121-9) Normal [facility] Trough Level - Draw immediately prior to the NEXT dose, but, no more than 60 minutes before the 2ND dose. 2021-06-23 11:44:09* Test Item Value Reference Range Interpretation Comme nts VANCO TROUGH (test code = 3254945180) <5.0 10.0-20.0 L ANA (test code = ANA) Toxic Range: ?>20 ug/mL 15-20 ug/mL is recommended for severe infection or when Vancomycin ROSETTA is greater than or equal to 2. Lab Interpretation (test code = 75891-0) Abnormal [facility] GLU[facility]SE (AUTOMATED)2021-06-23 11:34:02* Test Item Value Reference Range Interpretation Comme nts POCT GLU (test code = 7965340045) 128 mg/dL 70-110 H Lab Interpretation (test cod e = 23644-7) Abnormal [facility] METABOLIC PANEL (NA, K, CL, CO2, GLUCOSE, BUN, CREATININE, CA)2021-06-23 11:08:10* Test Item Value Reference Range Interpretation Comme nts NA (test code = 3112111984) 135 mmol/L 135-145 K (test code = 5276242876) 4.1 mmol/L 3.5-5.0 CL (test code = 9681792574) 110 mmol/L 98-108 H CO2 TOTAL (test code = 5465391988) 24 mmol/L 23-31 AGAP (test code = 9176893487) 2-16 L BUN (test code = 3264190503) 17 mg/dL 7-23 GLUCOSE (test code = 7637242824) 135 mg/dL 70-110 H CREATININE (test code = 6063784050) 0.67 mg/dL 0.50-1.04 CALCIUM (test code = 2633788804) 8.0 mg/dL 8.6-10.6 L eGFR (test code = 9978393529) mL/min/1.73m2 ANA (test code = ANA) Association [...] imaging tests). Lab Interpretation (test code = 07368-5) Abnormal [facility]2021-[facility]-21 11:08:10* Test Item Value Reference Range Interpretation Comme nts MAGNESIUM (test code = 6090369019) 2.2 mg/dL 1.7-2.4 Lab Interpretation (test cod e = 22629-6) Normal [facility]2021-[facility]-21 11:08:10* Test Item Value Reference Range Interpretation Comme nts PHOSPHORUS (test code = 6525204556) 2.9 mg/dL 2.5-5.0 Lab Interpretation (test cod e = 88133-0) Normal [facility] WITHOUT [id number] 10:23:04* Test Item Value Reference Range Interpretation [...] result as normal/abnormal. MPV (test code = 08453-8) 8.8 fL 9.5-12.9 L RDW-CV (test code = 788-0) 14.2 % 12.0-15.5 RDW-SD (test code = 36968-4) 46.4 fL 39.0-49.9 NRBC x10^3 (test code = 6859373154) See_Comment [Automated [employer]] The system which generated this result transmitted reference range: 10*3/?L. The reference range was not used to interpret this result as normal/abnormal. NRBC/100 WBC (test code = 4281088930) See_Comment [Automated [employer]] The system which generated this result transmitted reference range: 0.0 - 10.0 /100 WBCs. The reference range was not used to interpret this result as normal/abnormal. IPF % (test code = 9588062725) Lab Interpretation (test code = 67830-8) [facility] [id number] 10:16:20* Test Item Value Reference Range Interpretation Comme [facility] LACTIC ACID (test code = 2925707122) 2.09 mmol/L 0.50-2.20 Lab Interpretation (test cod e = 27310-5) Normal [facility] GLUCOSE (AUTOMATED)2021-06-23 06:12:14* Test Item Value Reference Range Interpretation Comme [facility] POCT GLU (test code = 4780536849) 138 mg/dL 70-110 H Lab Interpretation (test cod e = 76127-9) [facility] [id number] 00:54:09* Test Item Value Reference Range Interpretation Comme [facility] LACTIC ACID (test code = 8969654080) 3.13 mmol/L 0.50-2.20 H Lab Interpretation (test cod e = 24240-6) Abnormal [facility] GLUCOSE (AUTOMATED)2021-06-22 23:21:03* Test Item Value Reference Range Interpretation Comme nts POCT GLU (test code = 6191287890) 143 mg/dL 70-110 H Lab Interpretation (test cod e = 24272-9) Abnormal [facility] GLUCOSE (AUTOMATED)2021-06-22 18:45:21* Test Item Value Reference Range Interpretation Comme nts POCT GLU (test code = 1902772906) 123 mg/dL 70-110 H Lab Interpretation (test cod e = 56774-8) Abnormal [facility] Acid Whole [id number] 18:03:01* Test Item Value Reference Range Interpretation Comme nts LACTIC ACID (test code = 0823089361) 3.63 mmol/L 0.50-2.20 H Lab Interpretation (test cod e = 96709-6) Abnormal [facility] WITH [id number] 13:14:33* Test Item Value Reference Range Interpretation [...] 33.2 g/dL 31.6-35.1 RDW-SD (test code = 63491-0) 46.0 fL 39.0-49.9 RDW-CV (test code = 788-0) 13.6 % 12.0-15.5 PLT (test code = 777-3) See_Comment [Automated message] The system which generated this result transmitted reference range: 166 - 358 10*3/?L. The reference range was not used to interpret this result as normal/abnormal. MPV (test code = 86253-6) 8.9 fL 9.5-12.9 L NRBC/100 WBC (test code = 6698528957) See_Comment [Automated message] The system which generated this result transmitted reference range: 0.0 - 10.0 /100 WBCs. The reference range was not used to interpret this result as normal/abnormal. NRBC x10^3 (test code = 1655307353) <0.01 See_Comment [Automated message] The system which generated this result transmitted reference range: 10*3/?L. The reference range was not used to interpret this result as normal/abnormal. GRAN MAT (NEUT) % (test code = 770-8) 83.5 % IMM GRAN % (test code = 3503599384) 5.10 % LYMPH % (test code = 736-9) 6.3 % MONO % (test code = 5905-5) 4.5 % EOS % (test code = 713-8) 0.1 % BASO % (test code = 706-2) 0.5 % GRAN MAT x10^3(ANC) (test code = 2470608578) 22.80 10*3/uL 1.88-7.09 H IMM GRAN x10^3 (test code = 1540161496) 1.40 10*3/uL 0.00-0.06 H LYMPH x10^3 (test code = 731-0) 1.72 10*3/uL 1.32-3.29 MONO x10^3 (test code = 742-7) 1.24 10*3/uL 0.33-0.92 H EOS x10^3 (test code = 711-2) 0.04 10*3/uL 0.03-0.39 BASO x10^3 (test code = 704-7) 0.13 10*3/uL 0.01-0.07 H BANDS (test code = 3387640469) MARKED INCREASED A TOXIC CHANGES (test code = 803-7) Present A Lab Interpretation (test code = 36488-2) Abnormal [facility] MET[facility]OLIC PAN[facility] (60667)2021-06-22 12:17:52* Test Item Value Reference Range Interpretation Comme nts NA (test code = 0230231848) 134 mmol/L 135-145 L K (test code = 9447569765) 4.0 mmol/L 3.5-5.0 CL (test code = 1835164046) 108 mmol/L 98-108 CO2 TOTAL (test code = 6722385114) 21 mmol/L 23-31 L AGAP (test code = 5458667937) 2-16 BUN (test code = 8199854488) 11 mg/dL 7-23 GLUCOSE (test code = 8191289259) 160 mg/dL 70-110 H CREATININE (test code = 8404172786) 0.61 mg/dL 0.50-1.04 TOTAL BILI (test code = 5807124148) 0.3 mg/dL 0.1-1.1 CALCIUM (test code = 3250617265) 7.6 mg/dL 8.6-10.6 L T PROTEIN (test code = 2848786098) 4.8 g/dL 6.3-8.2 L ALBUMIN (test code = 6520736287) 2.2 g/dL 3.5-5.0 L ALK PHOS (test code = 5991601497) 75 U/L 34-122 ALTv (test code = 1742-6) 26 U/L 5-35 AST(SGOT) (test code = 5201856786) 21 U/L 13-40 eGFR (test code = 4596389112) mL/min/1.73m2 ANA (test code = ANA) Association [...] imaging tests). Lab Interpretation (test code = 11742-2) Abnormal [facility]2021-[facility]-20 12:17:52* Test Item Value Reference Range Interpretation Comme nts MAGNESIUM (test code = 4766474552) 2.0 mg/dL 1.7-2.4 Lab Interpretation (test cod e = 63636-9) Normal [facility]2021-[facility]-20 12:17:52* Test Item Value Reference Range Interpretation Comme nts PHOSPHORUS (test code = 5770498605) 2.0 mg/dL 2.5-5.0 L Lab Interpretation (test cod e = 02268-1) Abnormal [facility]AC VBG + LACTIC [id number] 12:03:21* Test Item Value Reference Range Interpretation Comme nts PH (test code = 9137445372) 7.32-7.42 PCO2 WENDY (test code = 4257849243) See_Comment L [Automated messa ge] The system which generated this result transmitted reference range: 41 - 51 mmHg. The reference range was not used to interpret this result as normal/abnormal. PO2 WENDY (test code = 1501987540) See_Comment HH [Automated messa ge] The system which generated this result transmitted reference range: 25 - 40 mmHg. The reference range was not used to interpret this result as normal/abnormal. HCO3 WENDY (test code = 3421534378) See_Comment L [Automated messa ge] The system which generated this result transmitted reference range: 24 - 28 mEq/L. The reference range was not used to interpret this result as normal/abnormal. AC VBE(BEAKER) (test code = 3948314244) mEq/L LACTIC ACID (test code = 6276156875) 3.13 mmol/L 0.50-2.20 H Lab Interpretation (test code = 71621-6) Abnormal [facility] GLUCOSE (AUTOMATED)2021-06-22 11:29:33* Test Item Value Reference Range Interpretation Comme nts POCT GLU (test code = 2544053493) 154 mg/dL 70-110 H Lab Interpretation (test cod e = 93454-2) Abnormal [facility] GLUCOSE (AUTOMATED)2021-06-22 05:41:42* Test Item Value Reference Range Interpretation Comme nts POCT GLU (test code = 0300418761) 217 mg/dL 70-110 H Lab Interpretation (test cod e = 13455-5) Abnormal [facility] GLUCOSE (AUTOMATED)2021-06-22 00:36:50* Test Item Value Reference Range Interpretation Comme nts POCT GLU (test code = 4400595180) 142 mg/dL 70-110 H Lab Interpretation (test cod e = 73933-2) Abnormal [facility] [place] [place] GLUCOSE (AUTOMATED)2021-06-21 17:54:52* Test Item Value Reference Range Interpretation Comme nts POCT GLU (test code = 0468652538) 160 mg/dL 70-110 H Lab Interpretation (test cod e = 32821-8) Abnormal [facility]Vanced[facility] hospitalycin Trough Level - Draw immediately prior to the 4TH dose, but, no more than 60 minutes before the 4TH dose. 2021-06-21 11:09:36* Test Item Value Reference Range Interpretation Comme nts VANCO TROUGH (test code = 4436837535) 5.8 ug/mL 10.0-20.0 L AAN (test code = ANA) Toxic Range: ?>20 ug/mL 15-20 ug/mL is recommended for severe infection or when Vancomycin ROSETTA is greater than or equal to 2. Lab Interpretation (test code = 14262-3) Abnormal [facility] GLUCOSE (AUTOMATED)2021-06-21 11:03:43* Test Item Value Reference Range Interpretation Comme nts POCT GLU (test code = 2228020412) 155 mg/dL 70-110 H Lab Interpretation (test cod e = 95058-5) Abnormal [facility]. METABOLIC PANEL (47557)2021-06-21 10:33:49* Test Item Value Reference Range Interpretation Comme [facility] NA (test code = 5324168993) 132 mmol/L 135-145 L K (test code = 6714202516) 4.1 mmol/L 3.5-5.0 CL (test code = 4976270498) 108 mmol/L 98-108 CO2 TOTAL (test code = 6405026468) 18 mmol/L 23-31 L AGAP (test code = 7079747801) 2-16 BUN (test code = 9862233341) 13 mg/dL 7-23 GLUCOSE (test code = 2277439948) 175 mg/dL 70-110 H CREATININE (test code = 7849320579) 0.75 mg/dL 0.50-1.04 TOTAL BILI (test code = 8702938839) 0.3 mg/dL 0.1-1.1 CALCIUM (test code = 6930506795) 7.8 mg/dL 8.6-10.6 L T PROTEIN (test code = 3582600531) 4.7 g/dL 6.3-8.2 L ALBUMIN (test code = 0232492864) 2.3 g/dL 3.5-5.0 L ALK PHOS (test code = 1666000149) 73 U/L 34-122 ALTv (test code = 1742-6) 39 U/L 5-35 H AST(SGOT) (test code = 2818029123) 28 U/L 13-40 eGFR (test code = 9534571550) mL/min/1.73m2 ANA (test code = ANA) Association [...] imaging tests). Lab Interpretation (test code = 62447-8) Abnormal [facility]2021-[facility]:49* Test Item Value Reference Range Interpretation Comme nts MAGNESIUM (test code = 8652550892) 2.1 mg/dL 1.7-2.4 Lab Interpretation (test cod e = 31125-6) [facility]:49* Test Item Value Reference Range Interpretation Comme nts PHOSPHORUS (test code = 5727216507) 1.9 mg/dL 2.5-5.0 L Lab Interpretation (test cod e = 60033-4) [facility] TexasLactic Acid Whole [id number] 10:13:28* Test Item Value Reference Range Interpretation Comme nts LACTIC ACID (test code = 5750025469) 3.09 mmol/L 0.50-2.20 H Lab Interpretation (test cod e = 46602-3) Abnormal [facility] TexasCBC WITHOUT [id number] 10:08:31* Test Item Value Reference Range Interpretation [...] result as normal/abnormal. MPV (test code = 03008-5) 9.0 fL 9.5-12.9 L RDW-CV (test code = 788-0) 13.3 % 12.0-15.5 RDW-SD (test code = 10420-5) 45.6 fL 39.0-49.9 NRBC x10^3 (test code = 6275940171) <0.01 See_Comment [Automated [employer]] The system which generated this result transmitted reference range: 10*3/?L. The reference range was not used to interpret this result as normal/abnormal. NRBC/100 WBC (test code = 0776918135) See_Comment [Automated [employer]] The system which generated this result transmitted reference range: 0.0 - 10.0 /100 WBCs. The reference range was not used to interpret this result as normal/abnormal. IPF % (test code = 2580955593) Lab Interpretation (test code = 79950-4) Abnormal [facility] TexasLactic Acid Whole [id number] 05:27:17* Test Item Value Reference Range Interpretation Comme nts LACTIC ACID (test code = 1628602504) 3.55 mmol/L 0.50-2.20 H Lab Interpretation (test cod e = 21552-7) Abnormal [facility] GLUCOSE (AUTOMATED)2021-06-21 05:15:20* Test Item Value Reference Range Interpretation Comme nts POCT GLU (test code = 8292271452) 252 mg/dL 70-110 H Lab Interpretation (test cod e = 39310-7) Abnormal [facility] GLUCOSE (AUTOMATED)2021-06-20 23:57:17* Test Item Value Reference Range Interpretation Comme nts POCT GLU (test code = 5296838179) 143 mg/dL 70-110 H Lab Interpretation (test cod e = 97937-4) Abnormal [facility] TexasLatnic Acid Whole [id number] 22:44:12* Test Item Value Reference Range Interpretation Comme [facility] LACTIC ACID (test code = 1344780725) 4.40 mmol/L 0.50-2.20 H Lab Interpretation (test cod e = 78769-5) Abnormal [facility] METABOLIC PANEL (NA, K, CL, CO2, GLUCOSE, BUN, CREATININE, CA)2021-06-20 18:53:00* Test Item Value Reference Range Interpretation Comme [facility] NA (test code = 9662490827) 128 mmol/L 135-145 L K (test code = 4069381121) 3.8 mmol/L 3.5-5.0 CL (test code = 2475958132) 106 mmol/L 98-108 CO2 TOTAL (test code = 1693288575) 16 mmol/L 23-31 L AGAP (test code = 1719343690) 2-16 BUN (test code = 2020315893) 17 mg/dL 7-23 GLUCOSE (test code = 0000900558) 143 mg/dL 70-110 H CREATININE (test code = 7685858813) 0.96 mg/dL 0.50-1.04 CALCIUM (test code = 0999237285) 7.2 mg/dL 8.6-10.6 L eGFR (test code = 3640062247) mL/min/1.73m2 ANA (test code = ANA) Association [...] imaging tests). Lab Interpretation (test code = 25011-9) Abnormal [facility] TexasLatnic Acid Whole [id number] 18:29:31* Test Item Value Reference Range Interpretation Comme [facility] LACTIC ACID (test code = 7864988611) 3.67 mmol/L 0.50-2.20 H Lab Interpretation (test cod e = 01214-1) Abnormal [facility] [place] GLUCOSE (AUTOMATED)2021-06-20 18:14:36* Test Item Value Reference Range Interpretation Comme [facility] POCT GLU (test code = 6700754780) 140 mg/dL 70-110 H Lab Interpretation (test cod e = 54126-4) [facility] (NA, K, CL, CO2, GLUCOSE, BUN, CREATININE, CA)2021-06-20 14:04:20* Test Item Value Reference Range Interpretation Comme [facility] NA (test code = 4858507436) 127 mmol/L 135-145 L K (test code = 3701633262) 3.5 mmol/L 3.5-5.0 CL (test code = 2215857254) 105 mmol/L 98-108 CO2 TOTAL (test code = 6121049863) 16 mmol/L 23-31 L AGAP (test code = 6902107808) 2-16 BUN (test code = 9762823404) 20 mg/dL 7-23 GLUCOSE (test code = 2690885091) 214 mg/dL 70-110 H CREATININE (test code = 2609293874) 1.28 mg/dL 0.50-1.04 H CALCIUM (test code = 4088880067) 7.2 mg/dL 8.6-10.6 L eGFR (test code = 9858778557) mL/min/1.73m2 ANA (test code = ANA) Association [...] imaging tests). Lab Interpretation (test code = 39032-8) [facility]* Test Item Value Reference Range Interpretation Comme nts MAGNESIUM (test code = 6595762820) 2.2 mg/dL 1.7-2.4 Lab Interpretation (test cod e = 30366-0) Normal [facility] TexasPHOSPHORUS2021-12-18 14:04:20* Test Item Value Reference Range Interpretation Comme nts PHOSPHORUS (test code = 3550095443) 3.3 mg/dL 2.5-5.0 Lab Interpretation (test cod e = 98292-8) Normal [facility] TexasHEPATIC FUNCTION PANEL (59639) (ALB,T.PRO,BILI T,BU/BC,ALT,AST,ALK PHOS)2021-06-20 14:04:20* Test Item Value Reference Range Interpretation Comme nts TOTAL BILI (test code = 6071567602) 0.8 mg/dL 0.1-1.1 BILI UNCON (test code = 7181968941) 0.4 mg/dL 0.1-1.1 BILI CONJ (test code = 4485048898) 0.0 mg/dL 0.0-0.3 T PROTEIN (test code = 7373747626) 4.4 g/dL 6.3-8.2 L ALBUMIN (test code = 7976939203) 2.0 g/dL 3.5-5.0 L ALK PHOS (test code = 4891946694) 53 U/L 34-122 ALTv (test code = 1742-6) 85 U/L 5-35 H AST(SGOT) (test code = 2962846926) 56 U/L 13-40 H Lab Interpretation (test cod e = 43955-4) Abnormal [facility] TexasCBC WITH [id number] 11:35:59* Test Item Value Reference Range Interpretation [...] 33.6 g/dL 31.6-35.1 RDW-SD (test code = 73992-8) 44.5 fL 39.0-49.9 RDW-CV (test code = 788-0) 13.2 % 12.0-15.5 PLT (test code = 777-3) See_Comment [Automated message] The system which generated this result transmitted reference range: 166 - 358 10*3/?L. The reference range was not used to interpret this result as normal/abnormal. MPV (test code = 45492-6) 8.6 fL 9.5-12.9 L NRBC/100 WBC (test code = 8425372132) See_Comment [Automated message] The system which generated this result transmitted reference range: 0.0 - 10.0 /100 WBCs. The reference range was not used to interpret this result as normal/abnormal. NRBC x10^3 (test code = 8729704667) <0.01 See_Comment [Automated message] The system which generated this result transmitted reference range: 10*3/?L. The reference range was not used to interpret this result as normal/abnormal. GRAN MAT (NEUT) % (test code = 770-8) 78.1 % IMM GRAN % (test code = 4247925989) 2.40 % LYMPH % (test code = 736-9) 9.2 % MONO % (test code = 5905-5) 6.2 % EOS % (test code = 713-8) 3.3 % BASO % (test code = 706-2) 0.8 % GRAN MAT x10^3(ANC) (test code = 1895541371) 15.95 10*3/uL 1.88-7.09 H IMM GRAN x10^3 (test code = 6658957182) 0.49 10*3/uL 0.00-0.06 H LYMPH x10^3 (test code = 731-0) 1.88 10*3/uL 1.32-3.29 MONO x10^3 (test code = 742-7) 1.27 10*3/uL 0.33-0.92 H EOS x10^3 (test code = 711-2) 0.68 10*3/uL 0.03-0.39 H BASO x10^3 (test code = 704-7) 0.16 10*3/uL 0.01-0.07 H BANDS (test code = 4831509008) MARKED INCREASED A TOXIC CHANGES (test code = 803-7) Present A Lab Interpretation (test code = 24641-2) Abnormal [facility] GLUCOSE (AUTOMATED)2021-06-20 10:47:12* Test Item Value Reference Range Interpretation Comme nts POCT GLU (test code = 9681099206) 228 mg/dL 70-110 H Lab Interpretation (test cod e = 00743-4) Abnormal [facility] TexasLatnic Acid Whole Ocldj3885-46-55 05:38:29* Test Item Value Reference Range Interpretation Comme nts LACTIC ACID (test code = 4500032262) 2.69 mmol/L 0.50-2.20 H Lab Interpretation (test cod e = 63101-1) Abnormal [facility] GLUCOSE (AUTOMATED)2021-06-20 05:38:29* Test Item Value Reference Range Interpretation Comme nts POCT GLU (test code = 3621488051) 260 mg/dL 70-110 H Lab Interpretation (test cod e = 17786-7) Abnormal [facility] TexasIonized Pbnealj4175-74-88 23:28:46* Test Item Value Reference Range Interpretation Comme nts IONIZED CA (test code = 5463105513) 4.20 mg/dL 4.50-5.30 L PH SERUM (test code = 2419327739) 7.35-7.45 Lab Interpretation (test cod e = 07855-0) Abnormal [facility] TexasCBC with Ktwuykddtrtq0119-37-59 23:17:16* Test Item Value Reference Range Interpretation [...] 32.6 g/dL 31.6-35.1 RDW-SD (test code = 53637-6) 45.0 fL 39.0-49.9 RDW-CV (test code = 788-0) 13.2 % 12.0-15.5 PLT (test code = 777-3) See_Comment H [Automated message] The system which generated this result transmitted reference range: 166 - 358 10*3/?L. The reference range was not used to interpret this result as normal/abnormal. MPV (test code = 01708-7) 8.8 fL 9.5-12.9 L NRBC/100 WBC (test code = 4533075440) See_Comment [Automated message] The system which generated this result transmitted reference range: 0.0 - 10.0 /100 WBCs. The reference range was not used to interpret this result as normal/abnormal. NRBC x10^3 (test code = 7719793282) <0.01 See_Comment [Automated message] The system which generated this result transmitted reference range: 10*3/?L. The reference range was not used to interpret this result as normal/abnormal. GRAN MAT (NEUT) % (test code = 770-8) 84.6 % IMM GRAN % (test code = 3085158396) 1.00 % LYMPH % (test code = 736-9) 8.2 % MONO % (test code = 5905-5) 5.3 % EOS % (test code = 713-8) 0.3 % BASO % (test code = 706-2) 0.6 % GRAN MAT x10^3(ANC) (test code = 8815610951) 16.90 10*3/uL 1.88-7.09 H IMM GRAN x10^3 (test code = 1389509929) 0.20 10*3/uL 0.00-0.06 H LYMPH x10^3 (test code = 731-0) 1.64 10*3/uL 1.32-3.29 MONO x10^3 (test code = 742-7) 1.06 10*3/uL 0.33-0.92 H EOS x10^3 (test code = 711-2) 0.05 10*3/uL 0.03-0.39 BASO x10^3 (test code = 704-7) 0.12 10*3/uL 0.01-0.07 H BANDS (test code = 4811205177) MARKED INCREASED A Lab Interpretation (test code = 25192-6) Abnormal [facility] TexasType and Screen - The Type and Screen [...] code = 20) A NEGATIVE Performed at [facility] Laboratory Services - [facility] Blood [place] [address]Toll Free: [phone] No. [id number] IAT (test code = 1185) Negative Performed at [facility] Laboratory Services [facility] Blood [place] [address]Toll Free: [phone] No. [id number] [facility] TexasBasic Metabolic Panel (NA, K, CL, CO2, GLUCOSE, BU, CREATININE, CA)2021-06-19 23:11:51* Test Item Value Reference Range Interpretation Comme nts NA (test code = 8051976331) 130 mmol/L 135-145 L K (test code = 0641589047) 3.9 mmol/L 3.5-5.0 CL (test code = 2149925962) 105 mmol/L 98-108 CO2 TOTAL (test code = 3018428090) 16 mmol/L 23-31 L AGAP (test code = 6449068096) 2-16 BUN (test code = 2664923368) 19 mg/dL 7-23 GLUCOSE (test code = 2820174512) 196 mg/dL 70-110 H CREATININE (test code = 2802394407) 1.12 mg/dL 0.50-1.04 H CALCIUM (test code = 9283710054) 7.2 mg/dL 8.6-10.6 L eGFR (test code = 6690768515) mL/min/1.73m2 ANA (test code = ANA) Association [...] imaging tests). Lab Interpretation (test code = 61307-7) Abnormal [facility], [id number] 23:11:51* Test Item Value Reference Range Interpretation Comme nts MAGNESIUM (test code = 4704292137) 1.3 mg/dL 1.7-2.4 L Lab Interpretation (test cod e = 63959-5) Abnormal [facility] TexasPhosphorus, [id number] 23:11:51* Test Item Value Reference Range Interpretation Comme nts PHOSPHORUS (test code = 2442934740) 3.5 mg/dL 2.5-5.0 Lab Interpretation (test cod e = 32682-3) Normal [facility] TexasLactic Acid Whole Evhsk0629-14-80 22:36:49* Test Item Value Reference Range Interpretation Comme nts LACTIC ACID (test code = 2250547234) 4.23 mmol/L 0.50-2.20 H Lab Interpretation (test cod e = 36430-1) Abnormal [facility] [place]P[facility] GLUCOSE (AUTOMATED)2021-06-19 22:26:28* Test Item Value Reference Range Interpretation Comme nts POCT GLU (test code = 4591915652) 185 mg/dL 70-110 H Lab Interpretation (test cod e = 52811-8) Abnormal [facility] TexasXR KNEE <3 VW [id number] 16:01:07HISTORY: ?Pain. MVC. FINDINGS: AP, lateral, oblique [...] acute fracture or dislocation in right knee. [facility], Radiant Results Inft User - 05/21/2020 10:02 [...] acute fracture or dislocation in right knee. [facility] TexasXR HIPS 3 VW [id number] 16:00:19HISTORY: ?Pain. MVC. FINDINGS: AP view of the pelvis and AP and lateral views centered over theright hip joint showed no acute fracture or dislocation. No signs of AVN inthe femoral head. No significant changes of arthritis or aggressive bonelesions seen. CONCLUSIONS: No acute fracture or dislocation in right hip. [facility], Radiant Results Inft User - 05/21/2020 10:01 AM CSTHISTORY: Pain. MVC.FINDINGS: AP view of the pelvis and AP and lateral views centered over theright hip joint showed no acute fracture or dislocation. No signs of AVN inthe femoral head. No significant changes of arthritis or aggressive bonelesions seen.CONCLUSIONS: No acute fracture or dislocation in right hip. [facility] TexasXR Foot Complete 3+ Views [id number] 20:26:02Patient: KRISTIN YOUNG Date/Time08/24/2019 20:08 CSTReason for ExamInjuryReportDICTATION LOCATION: [id number]: Female, 44 years of age with FallPROCEDURE:LEFT [...] 08/24/2019 8:26 pmXR Ankle Complete 3+ Views [id number] 20:26:02 Patient: KRISTIN YOUNG Date/Time08/24/2019 20:08 CSTReason for ExamFallReportDICTATION LOCATION: [id number]: Female, 44 years of age with FallPROCEDURE:LEFT FOOT, 3 VIEWS.LEFT ANKLE, 3 VIEWS.COMPARISON: No prior studies.COMMENT: Large amount of soft tissue swelling seen laterally. Acute transverse fracture seen in the lateral malleolus without displacement. No other acutefracture or dislocation is seen. Ankle mortise joint is well aligned. Small dorsal and plantar calcaneal spurs are present.
[2024-11-09 18:18] LABS: Absolute Basophils 0.1 K/uL (0-0.5); Absolute Eosinophils 0.1 K/uL (0-0.5); Absolute Lymphocytes (CBC) 2.6 K/uL (0.7-4.9); Absolute Monocytes 0.7 K/uL (0.1-1.3); Absolute Neutrophil 5.6 K/uL (1.8-8.0); Basophils % 0.8 % (0-1.3); Eosinophils % 1.3 % (0-4.4); Hematocrit 39.9 % (36.0-45.0); Hemoglobin 13.9 g/dL (12.0-15.0); Lymphocytes % 28.6 % (15.3-44.8); MCHC 34.7 g/dL (32.0-36.0); MCV 89.3 fL (80-100); MPV 6.7 fL (7.6-11.3); Monocytes % 7.8 % (3.3-12.3); Neutrophils % 61.5 % (41.7-73.7); Nucleated Red Blood Cells % 0.2 % (0-0); Platelets 310 thou/uL (152-406); RBC Red Blood Cell Count 4.47 M/uL (3.86-4.86); Red Cell Distribution Width 13.1 % (12.1-15.2)
[2024-11-09 19:30] LABS: Anion Gap 11.9 mEq/L (5.0-15.0)
[2024-11-09 19:31] LABS: Potassium 3.9 mEq/L (3.5-5.1)
--- NOTE | 2024-11-09 19:50 | EDPHYS ---
Physician Documentation [facility] Name: Gabrielle Levine Age: 49 yrs Sex: Female : 1975 Arrival Date: 11/09/2024 Time: 16:07 Bed 18 Private MD: ED Physician Cruz Sigala HPI: 11/09 17:46 This 49 yrs old Female presents to ER via Ambulatory with complaints of Leg Swelling - sb4 RT, Leg Burning- RT, Leg Pain - RT. 17:46 patient states that she injured her right thigh while exercising 2 weeks ago. states it sb4 has been painful and swollen since, not getting better with aleve and tylenol. states that she feels a burning sensation in her entire leg and it even hurts with fabric touching it. no ecchymosis, warmth, or redness. no numbness or tingling. 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 - Infectious Disease History:: Denies. - Social history:: Smoking status: unknown. ROS: 17:54 Constitutional: Negative for fever, chills, and weight loss, sb4 17:54 MS/extremity: Positive for injury or acute deformity, pain, swelling, of the right quadriceps, 17:54 All other systems are negative, Exam: 17:54 Constitutional: This is a well developed, well nourished patient who is awake, alert, sb4 and in no acute distress. Head/Face: Normocephalic, atraumatic. Eyes: Extra-ocular motions intact. Periorbital areas with no swelling, redness, or edema. ENT: Mucous membranes moist. Respiratory: No increased work of breathing, no retractions or nasal flaring. Skin: Warm, dry with normal turgor. Normal color with no rashes, no lesions, and no evidence of cellulitis. 17:54 Musculoskeletal/extremity: mild swelling right thigh. no erythema, ecchymosis, or warmth. Vital Signs: 16:40 BP 111 / 73; Pulse 100; Resp 16; Temp 97.8; Pulse Ox 99% on R/A; iw 19:30 BP 113 / 66; Pulse 80; Resp 16; Pulse Ox 97% on R/A; cm10 20:25 BP 117 / 69; Pulse 72; Resp 16; Pulse Ox 96% ; cm10 MDM: 16:21 Medical Screening Exam initiated sb4 17:54 Differential diagnosis: cellulitis, muscle strain, hematoma, DVT. sb4 19:48 Data reviewed: vital signs, nurses notes, EKG, radiologic studies, and as a result, I sb4 will discharge patient. Counseling: I had a detailed discussion with the patient and/or guardian regarding the historical points, exam findings, and any diagnostic results supporting the discharge/admit diagnosis, lab results, radiology results, the need for outpatient follow up, for definitive care, to return to the emergency department if symptoms worsen or persist or if there are any questions or concerns that arise at home. 11/09 16:52 Order name: CBC with Diff; Complete Time: 18:20 sb4 11/09 16:52 Order name: BMP; Complete Time: 19:31 sb4 11/09 16:52 Order name: Extremity Venous Uni Ltd sb4 11/09 17:06 Order name: Lower Ext Wo Con W/ Mpr EDMS 11/09 16:52 Order name: IV Start; Complete Time: 18:10 sb4 11/09 18:19 Order name: Labs - recollect needed: recollect chemistries/ hemolyzed; Complete Time: eb 19:07 Administered Medications: No medications were administered Disposition: 11/10 07:03 Co-signature as Attending Physician, Cruz Sigala MD I reviewed the patient's care rn provided by the Advanced Practice Provider and agree with the diagnosis and treatment plan. Disposition Summary: 11/09/24 19:49 Discharge Ordered Notes: Location: Home sb4 Problem: an ongoing problem sb4 Symptoms: are unchanged sb4 Condition: Stable sb4 Diagnosis - Strain of right quadriceps muscle, fascia and tendon sb4 Followup: sb4 - With: Rikki Weaver MD - When: As needed - Reason: Recheck today's complaints, Continuance of care, Re-evaluation by your physician Discharge Instructions: - Discharge Summary Sheet sb4 - Quadriceps Strain Rehab-SportsMed sb4 - Quadriceps Strain sb4 Forms: - Patient Portal Instructions sb4 - Leadership Thank You Letter sb4 Prescriptions: - methocarbamol 750 mg Oral tablet - take 1 tablet ORAL route every 4 hours; 20 tablet; Refills: 0, Product sb4 Selection Permitted Signatures: Dispatcher [employer] Joy Kurtz, Cruz Gomez RN, MD MD rn Botello, Elizabeth eb Brown, Sophia PASharynC PAMarilin sb4 Vikki Macias RN RN cm10 Corrections: (The following items were deleted from the chart) 11/09 17:06 16:56 CT-LOWER EXTREMITY W/O CONTR ordered. EDMS EDMS
--- NOTE | 2024-11-09 19:50 | ER ---
Nurse's Notes [facility] Name: Gabrielle Levine Age: 49 yrs Sex: Female : 1975 Arrival Date: 11/09/2024 Time: 16:07 Bed 18 Private MD: Diagnosis: Strain of right quadriceps muscle, fascia and tendon Presentation: 11/09 16:40 Chief complaint: Patient states: injured herself in the gym a couple weeks ago, has iw swelling to right thigh, and buttock. Coronavirus screen: At this time, the client does not indicate any symptoms associated with coronavirus-19. Ebola Screen: No symptoms or risks identified at this time. Initial Sepsis Screen: Does the patient meet any 2 criteria? No. Patient's initial sepsis screen is negative. Does the patient have a suspected source of infection? No. Patient's initial sepsis screen is negative. Risk Assessment: Do you want to hurt yourself or someone else? Patient reports no desire to harm self or others. Onset of symptoms was October 26, 2024. 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 - Infectious Disease History:: Denies. - Social history:: Smoking status: unknown. Screenin:00 [facility] ED Fall Risk Assessment (Adult) History of falling in the last 3 months, cm10 including since admission No falls in past 3 months (0 pts) Confusion or Disorientation No (0 pts) Intoxicated or Sedated No (0 pts) Impaired Gait No (0 pts) Mobility Assist Device Used No (0 pt) Altered Elimination No (0 pt) Score/Fall Risk Level 0 - 2 = Low Risk Oriented to surroundings, Maintained a safe environment, Hourly rounding (assess needs \T\ fall precautionary measures) done. Abuse screen: Denies threats or abuse. Denies injuries from another. Nutritional screening: No deficits noted. Tuberculosis screening: No symptoms or risk factors identified. Assessment: 19:00 General: Appears in no apparent distress. uncomfortable, Behavior is calm, cooperative, cm10 appropriate for age. Pain: Complains of pain in right leg. Neuro: No deficits noted. Level of Consciousness is awake, alert, obeys commands, Oriented to person, place, time, situation, Appropriate for age. Respiratory: No deficits noted. Airway is patent Respiratory effort is even, unlabored, Respiratory pattern is regular, symmetrical. Musculoskeletal: Reports pain in right leg. Vital Signs: 16:40 BP 111 / 73; Pulse 100; Resp 16; Temp 97.8; Pulse Ox 99% on R/A; iw 19:30 BP 113 / 66; Pulse 80; Resp 16; Pulse Ox 97% on R/A; cm10 20:25 BP 117 / 69; Pulse 72; Resp 16; Pulse Ox 96% ; cm10 ED Course: 16:14 Patient arrived in ED. cj3 16:15 Yessenia Lala PA-C is PHCP. sb4 16:15 Cruz Sigala MD is Attending Physician. sb4 16:42 Triage completed. iw 16:46 Arm band placed on. iw 17:33 Extremity Venous Uni Ltd US In Process Unspecified. EDMS 18:10 BMP Sent. iw 18:10 CBC with Diff Sent. iw 18:10 Inserted saline lock: 20 gauge in right antecubital area, using aseptic technique. iw Blood collected. Flushed with 10 mL NS. 18:19 Lower Ext Wo Con W/ Mpr In Process Unspecified. EDMS 18:59 Vikki Macias, RAQUEL is Primary Nurse. cm10 19:00 Patient has correct armband on for positive identification. Bed in low position. Call cm10 light in reach. Side rails up X 1. Pulse ox on. NIBP on. 19:48 Rikki Weaver MD is Referral Physician. sb4 20:25 No provider procedures requiring assistance completed. IV discontinued, intact, cm10 bleeding controlled, No redness/swelling at site. Pressure dressing applied. 20:26 Provided Education on: Follow-up . cm10 Administered Medications: No medications were administered Medication: 19:00 VIS not applicable for this client. cm10 Outcome: 19:49 Discharge ordered by . kristina 20:25 Discharged to home ambulatory, cm10 20:25 Condition: good 20:25 Discharge instructions given to patient, Instructed on discharge instructions, follow up and referral plans. medication usage, Demonstrated understanding of instructions, follow-up care, medications, Prescriptions given X 1, 20:26 Patient left the ED. cm10 Signatures: Dispatcher [employer] EDJoy Lopez, RN Yessenia Adrian PA-C PAVikki Crowder RN RN cm10 Vicki Patel 3
[2024-11-09 20:30] VITALS: TEMP 97.8
[2024-11-09 20:34] VITALS: BP 117/69; O2SAT 96
--- NOTE | 2024-11-09 21:14 | RAD REPORT ---
EXAMINATION: US RIGHT LOWER EXTREMITY VENOUS DOPPLER CLINICAL INDICATION: PAIN TECHNIQUE: Complete bilateral duplex sonography of the RIGHT lower extremity veins was performed. The examination included compression for vein patency, color Doppler imaging and flow augmentation in response to distal compression of the distal external iliac, common femoral, femoral, popliteal, tibi al, and great and small saphenous veins. COMPARISON: No prior exam. FINDINGS: Duplex sonography testing of the veins of the RIGHT lower extremity was performed. Color flow imaging shows all veins to be compressible with [id number] color filling. Pulsatile and phasic flow is present within all lower extremity deep and superficial veins examined. IMPRESSION: There is no deep vein or superficial vein thrombosis. Electronically signed by: Basilio Davis MD 11/09/2024 05:47 PM CDT Transcribed Date/Time: 11/09/2024 9:14 PM
--- NOTE | 2024-11-09 22:06 | RAD REPORT ---
EXAM: CT LOWER EXTREMITY WITHOUT IV CONTRAST HISTORY: 49 yearsFem[age]ight leg pain/swelling, poss hematoma? COMPARISON: None FINDINGS: No evidence of fracture, dislocation or aggressive marrow lesion. No aggressive soft tissue mass is s uspected. Soft tissue gas is evident Small serpiginous structures in the lateral aspect of the fat right bilateral region are indeterminant, perhaps old hematoma or similar. No worrisome intrapelvic f inding. Electronically signed by: Basilio Davis MD 11/09/2024 07:34 PM CDT RP Due to temporary technical issues with the [employer] reporting system, reports are being tevin d by the in-house radiologist without review as a courtesy to ensure prompt reporting the interpreting radiologist is fully responsible for the content of the report. Transcribed Date/Time: 11/09/2024 10:06 PM
== END 2024-11-09 20:26 | disposition home or self-care (01) ==
LOC: ER 16:07
DX: S76.111A Strain of right quadriceps muscle, fascia and tendon, initial encounter (principal); Z21 Asymptomatic human immunodeficiency virus [HIV] infection status
CPT/HCPCS: 36415; 73700; 76377; 80048; 85025; 93971; 99284